=== PATIENT | male | born 1950 | race Caucasian/White ===

== ENCOUNTER 2023-10-09 10:00 | Outpatient (RCR) | payer MEDICARE, SELFPAY | END 2023-10-28 09:04 | disposition home or self-care (01) | LOC: HO.PTCHIC 10:00 | PROVIDERS: PCP Nurse Practitioner Family; Visit Provider Nurse Practitioner Family | DX: M25.552 Pain in left hip (principal) | CPT/HCPCS: 97110; 97161 ==

== ENCOUNTER 2023-12-25 08:41 | Outpatient (AMB) | payer MEDICARE, SELFPAY ==
--- NOTE | 2023-12-25 08:57 | A.OFFVIS_ITS ---
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 Patient reports his pain has been going on for about 6 months and is a 10 on the 1-10 pain scale. He states he is using aleve and aspirin for pain but doesn't last very long. He denies injury, injections, and surgery. The patient also reports intermittent pain in his low back. The pain does radiate down his left leg. He has done formal physical therapy which gave him no relief. He has tried Tylenol and ibuprofen which gave him mild relief. Allergies benazepril Allergy (Mild, Uncoded 12/25/23 09:03) Unknown Medication List - Last Reconciled 12/25/23 by Vinay Gooden MD fenofibrate 160 mg PO DAILY fexofenadine (Marlene Hives) 180 mg PO DAILY methylprednisolone (Medrol (Nolan)) PO PER PKG DIR pantoprazole (Protonix) 20 mg PO DAILY spironolactone 25 mg PO DAILY PFSH Surgical History (Updated 12/25/23 @ 09:09 by Suzi Vieyra CMA) History of bladder surgery (Unknown) Hx of shoulder surgery (Unknown) Hx of shoulder surgery (Unknown) Social History (Updated 12/25/23 @ 09:06 by Suzi Vieyra CMA) Patient Tobacco Use Status: Never used Tobacco Current occupational status: retired 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 Physical Exam Vital Signs: BMI result Body Mass Index 30.5 Const Other: Well-nourished well-developed very friendly male awake alert and oriented x3 in no acute distress Extrem Other: Bilateral lower extremity examination shows good capillary refill, no skin lesions noted, normal sensation light touch Left hip examination shows slightly decreased range of motion when compared to his right hip, minimal tenderness over his bursa, increased pain with forward flexion and internal rotation Results Reviewed Results Reviewed: X-rays of the patient's left hip show mild diffuse joint space narrowing, no acute bony abnormalities Assessment & Plan Assessment & Plan (1) Left hip pain: Code(s): M25.552 - Pain in left hip Plan Mr. 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 I had a lengthy discussion with the patient regarding the treatment options. I did prescribe a Medrol Dosepak. The patient will continue with his activity modifications. I will see him back in 4-6 weeks' time for repeat clinical examination. He will contact me prior to that time should his symptoms worsen in any way. Feel free to call me at any time should questions regarding his orthopedic management arise. Thank you very much for asking me to see this very friendly gentleman. I spent 22 minutes in reviewing the patient's records and imaging studies, seeing the patient and documenting in the medical record. Orders: Orders XR hip LT min 2V Today M25.552 - Pain in left hip Medications: New methylprednisolone (Medrol (Nolan)) PO PER PKG DIR 21 ea 0RF Coding Level of Care Code New Pt Level 2 (53779) Diagnoses Left hip pain M25.552
[2023-12-25 09:00] VITALS: BMI 30.5
== END 2023-12-25 09:29 | disposition home or self-care (01) ==
PROVIDERS: PCP Nurse Practitioner Family; Visit Provider Orthopaedic Surgery
DX: M25.552 Pain in left hip (principal)
CPT/HCPCS: 99202

== ENCOUNTER 2023-12-25 11:28 | Outpatient (REF) | payer MEDICARE, SELFPAY ==
--- NOTE | ~2023-12-25 | XR_ITS ---
EXAMINATION: XR HIP, LEFT CLINICAL INFORMATION: Pain. COMPARISON: CT abdomen and pelvis dated 07/06/2020; lumbar spine radiographs dated 05/13/2009. TECHNIQUE: AP and frog-leg lateral views of the left hip. FINDINGS: Bony alignment and mineralization are normal. The acetabular joint spaces are symmetric and well-maintained. The femoral heads are smooth. No fracture or dislocation is seen. A cyclic joints are symmetric and well-maintained. The pubic symphysis is intact. There are aortoiliac atherosclerotic calcifications. A rectangular lucency projects over the left ilium, which is new from prior and possibly superficial to the ileum. Please correlate. XR/XR hip LT min 2V IMPRESSION: Unremarkable radiographic appearances of the hips.
== END 2023-12-25 11:29 | disposition home or self-care (01) ==
LOC: HO.HOSX 11:28
PROVIDERS: Visit Provider Orthopaedic Surgery
DX: M25.552 Pain in left hip (principal); Z79.899 Other long term (current) drug therapy
CPT/HCPCS: 73502; 99202

== ENCOUNTER 2024-01-01 08:35 | Outpatient (AMB) | payer MEDICARE, SELFPAY ==
[2024-01-01 08:39] VITALS: BMI 30.5
--- NOTE | 2024-01-01 08:39 | MHC.OFFVIS ---
Intake Vital Signs 01/01/24 08:39 Height 6 ft Weight 225 lb BMI 30.5 Intake Visit Reasons: Low back pain radiating to left leg Intake Note: Nathan is a 73 year old male who presents with complaints of progressively worsening low back pain which radiates into his left leg. The patient states that he has had back pain for several years. Also reports intermittent weakness in his left leg. He has tried Tylenol and anti-inflammatory medicines as well as a Medrol Dosepak which gave him minimal relief. He has also done physical therapy which aggravated his pain. Allergies benazepril Allergy (Mild, Uncoded 12/25/23 09:03) Unknown Medication List - Last Reconciled 01/01/24 by Vinay Gooden MD fenofibrate 160 mg PO DAILY fexofenadine (Marlene Hives) 180 mg PO DAILY methylprednisolone (Medrol (Nolan)) PO PER PKG DIR pantoprazole (Protonix) 20 mg PO DAILY spironolactone 25 mg PO DAILY PFSH Surgical History (Updated 12/25/23 @ 09:09 by Suzi Vieyra CMA) History of bladder surgery (Unknown) Hx of shoulder surgery (Unknown) Hx of shoulder surgery (Unknown) Social History (Updated 12/25/23 @ 09:06 by Suzi Vieyra CMA) Patient Tobacco Use Status: Never used Tobacco Current occupational status: retired 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 Physical Exam Vital Signs: BMI result Body Mass Index 30.5 Const Other: Well-nourished well-developed very friendly male awake alert and oriented x3 in no acute distress Back/Spine/Pelvis Other: Low back examination shows pain with range of motion, left-sided paraspinal muscle tenderness, positive straight leg raise test on the left at 70 degrees, 4/5 strength with testing of his left hip flexors and knee extensors when compared to 5/5 strength on his right side Assessment & Plan Assessment & Plan (1) Low back pain radiating to left lower extremity: Code(s): M54.50 - Low back pain, unspecified; M79.605 - Pain in left leg Plan Mr. Monique presents with progressively worsening low back pain which radiates down his left leg possibly due to lumbar stenosis or a disc herniation. Thus, I will send the patient for an MRI of his lumbar spine for further evaluation. I will see him back once the MRI is completed to discuss the findings and treatment options. He will call me prior to that time should his symptoms worsen in any way. Feel free to call me at any time should questions regarding his orthopedic management arise. I spent 22 minutes in reviewing the patient's records and imaging studies, seeing the patient and documenting in the medical record. Orders: Orders MR lumbar spine wo con Today M54.50 - Low back pain, unspecified, M79.605 - Pain in left leg Coding Level of Care Code Est Pt Level 2 (28961) Diagnoses Low back pain radiating to left lower extremity M54.50; M79.605
== END 2024-01-01 08:59 | disposition home or self-care (01) ==
PROVIDERS: PCP Nurse Practitioner Family; Visit Provider Orthopaedic Surgery
DX: M54.50 Low back pain, unspecified (principal); M79.605 Pain in left leg
CPT/HCPCS: 99213

== ENCOUNTER → 2024-01-01 08:35 | Outpatient (BNVA) | payer MEDICARE, SELFPAY | PROVIDERS: PCP Nurse Practitioner Family; Visit Provider Orthopaedic Surgery | DX: M54.50 Low back pain, unspecified (principal); M79.605 Pain in left leg | CPT/HCPCS: 99212 ==

== ENCOUNTER 2024-01-14 07:36 | Outpatient (AMB) | payer MEDICARE, SELFPAY ==
--- NOTE | 2024-01-14 07:40 | A.OFFVIS_ITS ---
Intake Vital Signs 01/14/24 07:43 Height 6 ft Weight 225 lb BMI 30.5 Intake Visit Reasons: OV-Lumbar spine MRI Review Intake Note: Nathan is a 73 year old male who presents for a MRI review of his lumbar spine. The patient describes his back pain as achy in nature. At times his pain does radiate into his left leg. Denies any weakness. He has taken Tylenol, anti- inflammatory medicines and a Medrol Dosepak which gave him fairly good relief. The patient states that this time his symptoms are tolerable to him. Allergies benazepril Allergy (Mild, Uncoded 12/25/23 09:03) Unknown Medication List - Last Reconciled 01/14/24 by Vinay Gooden MD fenofibrate 160 mg PO DAILY fexofenadine (Marlene Hives) 180 mg PO DAILY methylprednisolone (Medrol (Nolan)) PO PER PKG DIR pantoprazole (Protonix) 20 mg PO DAILY spironolactone 25 mg PO DAILY PFSH Surgical History (Updated 12/25/23 @ 09:09 by Suzi Vieyra CMA) History of bladder surgery (Unknown) Hx of shoulder surgery (Unknown) Hx of shoulder surgery (Unknown) Social History Patient Tobacco Use Status: Never used Tobacco Current occupational status: retired 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 Physical Exam Vital Signs: BMI result Body Mass Index 30.5 Const Other: Well-nourished well-developed very friendly male awake alert and oriented x3 in no acute distress Back/Spine/Pelvis Other: Low back examination shows left-sided paraspinal muscle tenderness, mild pain with range of motion, positive straight leg raise test on the left at 70 degrees Results Reviewed Results Reviewed: MRI of the patient's lumbar spine shows mild diffuse degenerative disc disease as well as mild neural foraminal stenosis, no acute bony abnormalities Assessment & Plan Assessment & Plan (1) Low back pain: Code(s): M54.50 - Low back pain, unspecified Plan Mr. Monique presents with intermittent low back pain due to diffuse degenerative disc disease and mild stenosis. I had a lengthy discussion with the patient regarding the treatment options. At this point the patient's symptoms are tolerable to him. He does not wish to be seen by a back specialist at this time. Will continue with his home exercise program. He will follow up with me on an as-needed basis should his symptoms in any way. Feel free to call me at any time should questions regarding his orthopedic arise. I spent 19 minutes in reviewing the patient's records and imaging studies, seeing the patient and documenting in the medical record. Coding Level of Care Code Est Pt Level 2 (47118) Diagnoses Low back pain M54.50
[2024-01-14 07:43] VITALS: BMI 30.5
== END 2024-01-14 07:57 | disposition home or self-care (01) ==
PROVIDERS: PCP Nurse Practitioner Family; Visit Provider Orthopaedic Surgery
DX: M54.50 Low back pain, unspecified (principal)
CPT/HCPCS: 99212

== ENCOUNTER → 2024-01-14 07:36 | Outpatient (BNVA) | payer MEDICARE, SELFPAY | PROVIDERS: PCP Nurse Practitioner Family; Visit Provider Orthopaedic Surgery | DX: M54.50 Low back pain, unspecified (principal) | CPT/HCPCS: 99212 ==

== ENCOUNTER 2025-01-10 07:01 | Inpatient (IN) | payer MEDICARE, SELFPAY ==
[2025-01-10] VITALS (10 sets, daily range): BP systolic 111–167; BP diastolic 51–78; PULSE 82–146; RESP 16–24; TEMP 36.3–38.2; O2SAT 87–99; BMI 30.8
--- NOTE | ~2025-01-10 | XR_ITS ---
CLINICAL HISTORY: cough, fever 2 view chest x-ray Comparison: None Findings: No consolidation or effusion. Heart size is normal. No acute fracture. IMPRESSION: 1. No acute findings. This document has been electronically signed by: Moises Trivedi MD on 01/10/2025 07:33:26
--- NOTE | ~2025-01-10 | CT_ITS ---
CLINICAL HISTORY: cough, SOB Exam: CT chest with intravenous contrast. Comparison: Chest x-ray from earlier today. Findings: Areas of dependent interstitial prominence and developing consolidation are seen within the lower lobes bilaterally, [id number]. Perihilar bronchial wall thickening with minor areas of interstitial prominence within the right perihilar region. No pleural effusion or pneumothorax. Vascular calcification of the thoracic aorta without dissection or aneurysmal dilatation. This extends to the abdominal aorta. Moderate coronary artery calcification. Overall heart size is within normal limits. No pathologically enlarged mediastinal, hilar, or axillary lymph nodes. Moderate bilateral gynecomastia. Low-attenuation throughout the liver is indicative of fatty infiltration. Multilevel degenerative change throughout the thoracic spine. Impression: Findings most characteristic of mild bronchitis/bronchiolitis. No consolidative pneumonia. This document has been electronically signed by: Leander Rosado MD on 01/10/2025 10:30:04
--- NOTE | 2025-01-10 07:17 | ED_ITS ---
HPI - General Adult General Chief complaint: Fever Stated complaint: 103.5 fever, cough Time Seen by Provider: 01/10/25 07:17 Source: patient and family (patient's ) Mode of arrival: ambulatory Limitations: no limitations History of Present Illness ED Provider: Fanta Gonzalez PA-C HPI narrative: Patient is a 74 year old assigned male at with a history of previous bladder cancer, current tongue and skin cancer, and daily alcohol use presenting to the emergency department today with fever and a cough. Patient states that starting yesterday he began having a significant cough and this morning he was found to have a fever. Patient denies any dizziness, lightheadedness, abdominal pain, nausea, vomiting, chills, blurry vision, double vision, loss of vision, chest pain, difficulty breathing, shortness of breath, back pain, night sweats, pain with urination, increased urinary frequency, increased urinary urgency, blood in his urine or stool, syncope or a near syncopal episode, recent trauma or falls, bowel incontinence, bladder incontinence, or any other complaints at this time. Relieving factors: none Exacerbating factors: none Associated symptoms: cough and fever/chills Treatments prior to arrival: none Related Data Home Medications ?Medication ?Instructions ?Recorded ?Confirmed fenofibrate 160 mg tablet 160 mg PO DAILY 12/25/23 01/14/24 fexofenadine 180 mg tablet 180 mg PO DAILY 12/25/23 01/14/24 (Marlene Hives) ketorolac 0.5 % eye drops 1 drp ophthalmic (eye) DAILY PRN 01/10/25 Pain prednisolone acetate 1 % eye 1 drp ophthalmic (eye) TID 01/10/25 drops,suspension spironolactone 25 1 tab PO DAILY 01/10/25 mg-hydrochlorothiazide 25 mg tablet Allergies Allergy/AdvReac Type Severity Reaction Status Date / Time benazepril Allergy Mild Unknown Uncoded 01/10/25 07:15 Review of Systems 2 Constitutional: Constitutional: Reports no additional constitutional complaints, Denies chills, Reports fever(s) and Denies night sweats Eyes: Eyes: Reports no additional eye complaints, Denies blurry vision, Denies change in vision, Denies diplopia, Denies eye discharge, Denies loss of vision and Denies eye pain ENT: Denies dizziness Cardiovascular: Cardiovascular: Reports no additional cardiovascular complaints, Denies chest pain, Denies lightheadedness, Denies Loss of Consciousness and Denies dyspnea Respiratory: Respiratory: Reports no additional respiratory complaints, Reports cough and Denies dyspnea Gastrointestinal: Gastrointestinal: Reports no additional gastrointestinal complaints, Denies abdominal pain, Denies melena, Denies hematochezia, Denies change in bowel habits and Denies change in stool character Genitourinary: Genitourinary: Reports no additional male genitourinary complaints, Denies hematuria, Denies oliguria, Denies difficulty urinating, Denies dysuria, Denies urinary frequency, Denies urinary hesitancy, Denies urinary incontinence and Denies urinary urgency Musculoskeletal: Musculoskeletal: Reports no additional musculoskeletal complaints, Denies numbness and Denies tingling Neurologic: Denies dizziness, Denies loss of vision, Denies numbness and Denies tingling Psychiatric: Psychiatric: Reports no additional psychiatric complaints Endocrine: Endocrine: Reports no additional endocrine complaints Hematologic/Lymphatic: Hematologic/Lymphatic: Reports no additional hematologic/lymphatic complaints Allergic/Immunologic: Allergic/Immunologic: Reports no additional allergic/immunologic complaints PMFSH Past Medical History Attestation statement: The following information was validated with the patient. (all information validated with the patient's ) Source: old records reviewed, obtained from family (patient's provided additional history and confirmed the history provided by the patient.) and nursing notes reviewed Surgical History History of bladder surgery (Unknown) Hx of shoulder surgery (Unknown) Hx of shoulder surgery (Unknown) Social History Social History Patient Tobacco Use Status: Never used Tobacco Use of substances other than those prescribed or required for medical reasons: No Advance Directives: No Advance Directives Information Provided: Yes Current occupational status: retired 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 Physical Exam ED Vital Signs: Vital Signs - 24 hr 01/10/25 07:11 01/10/25 08:20 01/10/25 08:20 Temperature 100.7 F H Pulse Rate 130 H Respiratory Rate 20 Blood Pressure 167/67 H 167/67 H Pulse Oximetry 90 L Oxygen Delivery Method Room Air Oxygen Flow Rate 01/10/25 08:23 01/10/25 09:00 03/23/25 09:06 Temperature 100.1 F Pulse Rate 146 H 114 H Respiratory Rate 24 H 22 H 24 H Blood Pressure 145/70 H 133/65 Pulse Oximetry 92 87 L 92 Oxygen Delivery Method Room Air Nasal Cannula Oxygen Flow Rate 1 01/10/25 09:40 01/10/25 10:05 Temperature Pulse Rate 115 H 88 Respiratory Rate 23 H 24 H Blood Pressure 131/78 131/78 Pulse Oximetry 92 93 Oxygen Delivery Method Nasal Cannula Nasal Cannula Oxygen Flow Rate 1 1 BMI result Body Mass Index 30.8 Const General: cooperative, no acute distress, alert and awake Nutritional Appearance: well nourished Orientation/consciousness: patient oriented x3 Limitations: no limitations HENMT Head: Yes normal to inspection and Yes atraumatic Ears: hearing grossly normal bilaterally and external ears normal General nose exam: Normal external nose present, no nasal discharge noted and no epistaxis Face and sinus: Yes normal facial exam, No abrasion and No laceration Mouth: Normal oral and palatal mucosa present, no drooling and no muffled voice Eyes General: appearance normal, both eyes and all related structures Periorbital: periorbital findings normal Eyelids: Yes eyelids normal Conjunctivae: conjunctivae normal Pupils: Equal, round and reactive pupils present EOM: EOMs intact bilaterally Neck Neck: Yes normal visual inspection, Yes full ROM and Yes no lymphadenopathy Chest Chest palpation & inspection: normal inspection of the chest Resp Effort & Inspection: normal respiratory effort and able to speak in complete sentences Cardio Rate: tachycardic Rhythm: abnormal rhythm irregularly irregular GI Inspection: Yes normal to inspection Neuro General: patient oriented x3, moves all extremities and CN's II-XI intact bilaterally Cranial nerves: Yes Equal, round and reactive pupils present Cognition (Neuro): normal cognition Extrem General: Yes normal to inspection, Yes full ROM and Yes capillary refill normal Psych Appearance: grossly normal Mental Status: mental status grossly normal Affect: normal affect Attitude: cooperative Thought process: Normal thought process present Thought content: Normal thought content present Insight: Good insight present (Psych) Medications Administered Discontinued Medications Generic Name Dose Route Start Last Admin Trade Name Freq PRN Reason Stop Dose Admin Acetaminophen 975 mg 01/10/25 07:18 01/10/25 07:44 Acetaminophen 325 Mg Tablet PO 01/10/25 07:19 975 mg ONCE ONE Administration Ceftriaxone Sodium 1 gm 01/10/25 09:33 01/10/25 10:09 Ceftriaxone Sodium 1 Gm Vial IVPUSH 01/10/25 09:34 1 gm ONCE ONE Administration Hydrochlorothiazide 25 mg 01/10/25 08:11 01/10/25 08:20 Hydrochlorothiazide 25 Mg Tablet PO 01/10/25 08:12 25 mg ONCE ONE Administration Protocol Sodium Chloride 1,000 mls @ 999 mls/hr 01/10/25 08:00 01/10/25 10:05 Ns IV 01/10/25 09:00 Infused .Q1H1M JODIE Infusion Thiamine HCl 100 mg/ Sodium 101 mls @ 202 mls/hr 01/10/25 08:29 01/10/25 10:06 Chloride IV 01/10/25 08:58 Infused ONCE ONE Infusion Magnesium Sulfate 2 gm in 50 mls @ 25 mls/hr 01/10/25 09:06 01/10/25 09:38 Magnesium Sulfate/H2o IV 01/10/25 11:05 25 mls/hr ONCE ONE Administration Azithromycin 500 mg/ Sodium 250 mls @ 125 mls/hr 01/10/25 09:33 01/10/25 10:13 Chloride IV 01/10/25 11:32 125 mls/hr ONCE ONE Administration Iohexol 100 ml 01/10/25 09:21 01/10/25 09:24 Iohexol 350 Mg/Ml 100 Ml Infus..Btl IV 01/10/25 09:22 65 ml ONCE ONE Administration Lorazepam 2 mg 01/10/25 07:51 01/10/25 08:08 Lorazepam 2 Mg/Ml Vial IVPUSH 01/10/25 07:52 2 mg ONCE ONE Administration Metoprolol Tartrate 5 mg 01/10/25 08:49 01/10/25 08:58 Metoprolol Tartrate 5 Mg/5 Ml Vial IVPUSH 01/10/25 08:50 5 mg ONCE ONE Administration Protocol Phenobarbital Sodium 301 mg 01/10/25 10:00 01/10/25 10:07 Phenobarbital Sodium 130 Mg/Ml Im Once IM 01/10/25 10:01 301 mg ONCE ONE Administration Protocol Spironolactone 25 mg 01/10/25 08:04 01/10/25 08:20 Spironolactone 25 Mg Tablet PO 01/10/25 08:05 25 mg ONCE ONE Administration Protocol Medical Decision Making Medical Decision Making MDM Narrative: Patient is a 74 year old assigned male at with a history of previous bladder cancer, current tongue and skin cancer, and daily alcohol use presenting to the emergency department today with fever and a cough. Patient's physical exam was as noted in the physical exam portion of this note. Patient was found to be fever, in new atrial flutter with RVR, and had a CIWA of 18. Patient's blood work showed an elevated WBC count of 17.4, magnesium of 1.5, initial lactic of 2.3 with a repeat of 1.6. Patient's EKG showed atrial flutter with RVR. Patient's chest x-ray showed no acute process. Given patient's presentation and history - I obtained a CT chest which showed evidence of brohncitis / bronchiolitis. Patient was given PO Tylenol, IV fluids, ceftriaxone, ativan, magnesium, thiamine, lopressor, and phenobarb protocol was initiated. Patient converted to NSR. Patient's clinical presentation is most consistent with alcohol withdrawal, new atrial flutter, and brohncitis vs. PNA. I suspected sepsis in this patient at 0933. I spoke with the hosptialist team who agreed to admission. I explained my physical exam findings as well as all test results to the patient and the patient's . I answered all questions asked by the patient and the patient's . Patient and the patient's verbalized agreement and understanding with this treatment plan and admission. Differential Diagnosis Differential Diagnoses: The differential diagnosis associated with the presentation includes Alcohol withdrawal New onset atrial flutter with rapid ventricular response Hypomagnesemia Bronchitis Pneumonia Febrile Admission/Observation Consideration of admission/observation: Escalation of care including admission/observation considered Patient admitted as noted in the MDM Rationale portion of this note. Consult Healthcare Provider Management of the patient was discussed with: Hospitalist (agreed to admission as noted in the MDM Rationale portion of this note.) Lab Data [facility] Lab Attestation statement: I reviewed the patient's lab results. My interpretation of these results are in the MDM Rationale portion of this note. 01/10/25 07:59 01/10/25 07:59 Labs: Lab Results 01/10/25 01/10/25 01/10/25 Range/Units 07:59 08:08 10:01 WBC 17.4 H (4.8-10.8) X10*3/uL RBC 5.05 (4.60-5.80) X10*6/uL Hgb 15.0 (14.0-18.0) g/dl Hct 43.4 (42.0-52.0) % MCV 85.9 (80.0-98.0) fL MCH 29.7 (27.0-33.0) pg MCHC 34.6 (31.0-36.0) g/dl RDW 15.0 (11.0-16.0) % Plt Count 326 (160-400) X10*3/uL MPV 9.0 L (9.4-12.4) fL Immature Gran % (Auto) 0.5 H (0.0-0.4) % Neut % (Auto) 87.4 H (45-73) % Lymph % (Auto) 3.2 L (20-40) % [place] % (Auto) 8.4 (2-11) % Eos % (Auto) 0.2 (0-4) % Baso % (Auto) 0.3 (0-2) % Lymph # (Auto) 0.6 L (1.2-4.9) X10*3/uL [place] # (Auto) 1.5 H (0.1-1.2) X10*3/uL Eos # (Auto) 0.0 (0.0-0.4) X10*3/uL Baso # (Auto) 0.1 (0.0-0.2) X10*3/uL Abs Immat Gran (auto) 0.08 H (0.00-0.03) X10*3/uL Absolute Neuts (auto) 15.2 H (2.0-8.3) x10*3/uL Absolute Nucleated RBC 0.000 (0.0-0.012) X10*3/uL Nucleated RBC % (auto) 0.0 (0.0-0.2) /100WBC VBG pH 7.48 H (7.32-7.43) VBG pCO2 31 mmHg VBG pO2 59 mmHg VBG HCO3 23 (22-26) mmol/L VBG O2 Saturation 88.0 % VBG Base Excess 1.1 mmol/L Sodium 135 (135-145) mmol/L Potassium 3.3 (3.3-5.1) mmol/L Chloride 101 (96-108) mmol/L Carbon Dioxide 21 L (22-29) mmol/L Anion Gap 16 (12-20) BUN 4 L (9-16) mg/dL Creatinine 0.71 (0.5-1.4) mg/dL Estim Creat Clear Calc 110.0 Estimated GFR > 60 Random Glucose 123 H (60-115) mg/dL Lactic Acid 2.3 H* 1.6 (0.5-2.0) mmol/L Calcium 8.6 (8.4-10.2) mg/dL Magnesium 1.5 L (1.6-2.6) mg/dL Total Bilirubin 1.0 (0.0-1.0) mg/dL AST 21 (5-37) U/L ALT 11 (0-40) U/L Alkaline Phosphatase 50 (39-117) U/L Troponin I High Sens 10.3 14.2 (<3.5-35.0) ng/L Total Protein 7.7 (6.5-8.0) g/dL Albumin 3.7 (3.5-5.0) g/dL Vitamin B12 474 (200-900) pg/mL Folate 15.8 (> or = 4.0) ng/mL Procalcitonin 0.03 ng/mL Influenza Type A (PCR) NEGATIVE (Negative) Influenza Type B (PCR) NEGATIVE (Negative) RSV RNA Qual (PCR) NEGATIVE (Negative) SARS-CoV-2 RNA (RT-PCR) NEGATIVE (Negative) Independent Interpretation I performed an independent interpretation of an: EKG, Plain X-Ray and CT Scan Interpretation: My interpretation is in agreement with the radiologist's impression of these imaging studies. L CLINICAL HISTORY: cough, fever 2 view chest x-ray Comparison: None Findings: No consolidation or effusion. Heart size is normal. No acute fracture. IMPRESSION: 1. No acute findings. This document has been electronically signed by: Moises Trivedi MD on 01/10/2025 07:33:26 Dictated By: Moises Trivedi MD Signed By: Electronically signed by Moises Trivedi MD 01/10/25 0734 Report Number: [id number]: Total DLP = 324.00 mGy-cm CLINICAL HISTORY: cough, SOB Exam: CT chest with intravenous contrast. Comparison: Chest x-ray from earlier today. Findings: Areas of dependent interstitial prominence and developing consolidation are seen within the lower lobes bilaterally, [id number]. Perihilar bronchial wall thickening with minor areas of interstitial prominence within the right perihilar region. No pleural effusion or pneumothorax. Vascular calcification of the thoracic aorta without dissection or aneurysmal dilatation. This extends to the abdominal aorta. Moderate coronary artery calcification. Overall heart size is within normal limits. No pathologically enlarged mediastinal, hilar, or axillary lymph nodes. Moderate bilateral gynecomastia. Low-attenuation throughout the liver is indicative of fatty infiltration. Multilevel degenerative change throughout the thoracic spine. Impression: Findings most characteristic of mild bronchitis/bronchiolitis. No consolidative pneumonia. This document has been electronically signed by: Leander Rosado MD on 01/10/2025 10:30:04 Dictated By: Leander Rosado MD Signed By: Electronically signed by Leander Rosado MD 01/10/25 1030 I independently interpreted this EKG and am in agreement with the below findings: Vent. Rate: 132 BPM Atrial Rat: 322 BPM P-R Int: * ms QRS Dur: 86 ms QT Int: 382 ms P-R-T Axes: * 55 55 degrees QTcB Int: 565 ms Atrial flutter with variable A-V block Nonspecific ST and T wave abnormality No previous ECGs available DD/ [id number] I independently interpreted this EKG and am in agreement with the below findings: Vent. Rate: 92 BPM Atrial Rate: 92 BPM P-R Int: 194 ms QRS Dur: 102 ms QT Int: 386 ms P-R-T Axes: 97 51 48 degrees QTcB Int: 477 ms Sinus rhythm with occasional Premature ventricular complexes and Prematureatrial complexes Otherwise normal ECG When compared with ECG of 10-Jan-2025 07:46, Sinus rhythm has replaced Atrial flutter ST no longer elevated in Inferior leads DD/ 1017 Radiology Impression Discussion of test interpretation with radiology: I have reviewed the radiologist's reading. Independent Historian Clinical information obtained from an independent historian. History obtained from or confirmed by: Spouse (patient's provided additional history and confirmed the history provided by the patient.) Critical Care Time Critical Care Time Critical Care Time: Yes Total Critical Care Time: 58 Attestation: I spent 58 minutes of Critical Care Time with this patient. This does not include time spent on separately reported billable procedures. Discharge Plan Discharge Clinical Impression: Atrial flutter, Hypomagnesemia, Alcohol withdrawal, Bronchitis Patient Disposition: Admitted As Inpatient Prescriptions: No Action spironolacton-hydrochlorothiaz 25-25 mg tablet 1 tab PO DAILY ketorolac 0.5 % drops 1 drp ophthalmic (eye) DAILY PRN (Reason: Pain) prednisolone acetate 1 % drops,suspension 1 drp ophthalmic (eye) TID fexofenadine [Marlene Nydia] 180 mg tablet 180 mg PO DAILY fenofibrate 160 mg tablet 160 mg PO DAILY Print Language: Malian
--- NOTE | 2025-01-10 07:20 | ECG_ITS ---
Test Reason : TACHY Blood Pressure : */* mmHG Vent. Rate : 132 BPM Atrial Rate : 322 BPM P-R Int : * ms QRS Dur : 86 ms QT Int : 382 ms P-R-T Axes : * 55 55 degrees QTcB Int : 565 ms Atrial flutter with variable A-V block Nonspecific ST and T wave abnormality Abnormal ECG No previous ECGs available Referred By: Fanta Gonzalez Electronically Signed By: CHARLOTTE GOODWIN MD
--- OUTSIDE RECORDS SUMMARY | 2025-01-10 07:32 | XMS_ITS | Encounter Summary ---
Author Organization [facility] Address [address] [place] [address] Care Team Providers Care Stone [employer] Operator Name Role Phone Jeanette Charlotte CALHOUN Primary Care Provider [phone] Encounter Details Date Type Department Care Team (Late st Contact Info) Description 11/23/2024 Lab Requisition [facility] - Main Lab [address] [facility] [place] [address] Ernst Mayers MD [address] [place] [address] Personal history of malignant neoplasm of bladder; Personal history of malignant neoplasm of prostate Social History Tobacco Use Types Packs/Day Years Used Date Smoking Tobacco: Never Assessed Sex and Gender Information Value Date Recorded Sex Assigned at Not on file Legal Sex Male 8:08 PM EST Gender Identity Not on file Sexual Orientation Not on file documented as of this encounter Plan of Treatment Not on file documented as of this encounter Procedures Procedure Name Priority Date/Time Associated Diagnosis Comments PROSTATE SPECIFIC ANTIGEN DIAGNOSTIC Routine 11/23/2024 8:18 AM EST Personal history of malignant neoplasm of bladder Personal history of malignant neoplasm of prostate COMPLETE BLOOD COUNT Routine 11/23/2024 8:18 AM EST Personal history of malignant neoplasm of bladder Personal history of malignant neoplasm of prostate COMPREHENSIVE METABOLIC PANEL Routine 11/23/2024 8:18 AM EST Personal history of malignant neoplasm of bladder Personal history of malignant neoplasm of prostate documented in this encounter Results * (ABNORMAL) Comprehensive metabolic panel (11/23/2024 8:18 AM EST) Sodium 134 133 - 145 mmol/L LAB CHEMISTRY METHOD 11/23/2024 5:37 PM [facility] Potassium 3.7 3.5 - 5.5 mmol/L LAB CHEMISTRY METHOD 11/23/2024 5:37 PM [facility] Chloride 99 96 - 110 mmol/L LAB CHEMISTRY METHOD 11/23/2024 5:37 PM [facility] CO2 27 21 - 32 mmol/L LAB CHEMISTRY METHOD 11/23/2024 5:37 PM [facility] Anion Gap 8 3 - 11 LAB CHEMISTRY METHOD 11/23/2024 5:37 PM [facility] Glucose 101(H) 70 - 100 mg/dL LAB CHEMISTRY METHOD 11/23/2024 5:37 PM [facility] BUN 6 5 - 25 mg/dL LAB CHEMISTRY METHOD 11/23/2024 5:37 PM [facility] Creatinine 0.79 0.70 - 1.30 mg/dL LAB CHEMISTRY METHOD 11/23/2024 5:37 PM [facility] eGFR 93 >=60 mL/min/1. 73m2 LAB CHEMISTRY METHOD 11/23/2024 5:37 PM [facility] Comment:Calculation based on the??Chronic Kidney Disease Epidemiology Collaboration (CKD-EPI) equation refit??without adjustment for race. BUN/Creatinine Ratio 7.6 LAB CHEMISTRY METHOD 11/23/2024 5:37 PM [facility] Calcium 9.0 8.5 - 10.5 mg/dL LAB CHEMISTRY METHOD 11/23/2024 5:37 PM [facility] AST (SGOT) 23 10 - 42 unit/L LAB CHEMISTRY METHOD 11/23/2024 5:37 PM [facility] ALT (SGPT) 23 10 - 60 unit/L LAB CHEMISTRY METHOD 11/23/2024 5:37 PM [facility] Alkaline Phosphatase 52 42 - 121 unit/L LAB CHEMISTRY METHOD 11/23/2024 5:[address] [facility] Total Protein 7.3 6.0 - 8.0 g/dL LAB CHEMISTRY METHOD 11/23/2024 5:37 PM [facility] Albumin 3.4 3.2 - 5.0 g/dL LAB CHEMISTRY METHOD 11/23/2024 5:37 PM [facility] Total Bilirubin 0.5 0.0 - 1.4 mg/dL LAB CHEMISTRY METHOD 11/23/2024 5:37 PM [facility] Blood Venous blood specimen / Unknown 11/23/2024 8:18 AM EST 11/23/2024 1:35 PM EST us Ernst Mayers MD LAB BLOOD ORDERABLES Final Resul t [facility] [address] [place] [address], * Complete blood count (11/23/2024 8:18 AM EST) WBC 7.6 4.8 - 10.8 K/mcL LAB HEMETOLOGY METHOD 11/23/2024 1:58 PM [facility] RBC 5.10 4.50 - 5.50 M/mcL LAB HEMETOLOGY METHOD 11/23/2024 1:58 PM [facility] Hemoglobin 14.7 13.5 - 17.5 g/dL LAB HEMETOLOGY METHOD 11/23/2024 1:58 PM [facility] Hematocrit 44.7 42.0 - 54.0 % LAB HEMETOLOGY METHOD 11/23/2024 1:58 PM [facility] MCV 88.3 79.0 - 98.0 FL LAB HEMETOLOGY METHOD 11/23/2024 1:58 PM [facility] MCH 29.1 27.0 - 32.0 pcg LAB HEMETOLOGY METHOD 11/23/2024 1:[address] [facility] MCHC 32.9 32.0 - 37.0 g/dL LAB HEMETOLOGY METHOD 11/23/2024 1:[address] [facility] RDW 14.5 11.0 - 15.0 % LAB HEMETOLOGY METHOD 11/23/2024 1:[address] [facility] Platelets 349 130 - 400 K/mcL LAB HEMETOLOGY METHOD 11/23/2024 1:[address] [facility] MPV 9.5 7.0 - 11.0 FL LAB HEMETOLOGY METHOD 11/23/2024 1:[address] [facility] NRBC 0.0 <1.0 % LAB HEMETOLOGY METHOD 11/23/2024 1:[address] [facility] NRBC Absolute 0.00 <0.10 K/mcL LAB HEMETOLOGY METHOD 11/23/2024 1:[address] [facility] Blood Venous blood specimen / Unknown 11/23/2024 8:18 AM EST 11/23/2024 1:35 PM EST Ernst Mayers MD LAB BLOOD ORDERABLES Final Resul t [facility] [address] [place] [address], * Prostate specific antigen diagnostic (11/23/2024 8:18 AM EST) PSA <0.06 0.00 - 4.00 ng/mL LAB CHEMISTRY METHOD 11/23/2024 5:[address] [facility] Blood Venous blood specimen / Unknown 11/23/2024 8:18 AM EST 11/23/2024 1:35 PM EST [facility] - 11/23/2024 5:46 PM EST The Siemens Advia Centaur Chemiluminescent Immunoassay is used. Results obtained with different assay methods or kits cannot be used interchangeably. Results cannot be interpreted as absolute evidence of the presence or absence of malignant disease. us Ernst Mayers MD LAB BLOOD ORDERABLES Final Resul t [facility] [address] [place] [address], documented in this encounter Visit Diagnoses Diagnosis Personal history of malignant neoplasm of bladder Personal history of malignant neoplasm of prostate documented in this encounter Care Teams Stone [employer] Operator Relationship Specialty Start Date End Date Charlotte Reid NP [address] [facility] [place] [id number] PCP - General Nurse Practitioner 11/23/24 documented as of this encounter
--- OUTSIDE RECORDS SUMMARY | 2025-01-10 07:32 | XMS_ITS | Clinical Summary ---
Author Organization [address] Address [address] [place] [address] Phone Care Team Providers Care Auto Service Representative Name Role Phone Jeanette, Charlotte CALHOUN Primary Care Provider [phone] Encounters Date Type Department Care Team Description 11/23/2024 Lab Requisition [facility] - Main Lab [address] [facility] [place] [address] Ernst Mayers MD Personal history of malignant neoplasm of bladder; Personal history of malignant neoplasm of prostate from Last 3 Months Social History Tobacco Use Types Packs/Day Years Used Date Smoking Tobacco: Never Assessed Sex and Gender Information Value Date Recorded Sex Assigned at Not on file Legal Sex Male 8:08 PM EST Gender Identity Not on file Sexual Orientation Not on file Plan of Treatment Health Maintenance Due Date Last Done Comments DTaP,Tdap,and Td Vaccines (1 - Tdap) 1969 Pneumococcal Vaccine: 50+ Ye ars (1 of 1 - PCV) 2000 Zoster Vaccines (1 of 2) 2000 Abdominal Aortic Aneurysm (A AA) Screen 11/14/2023 Cholesterol Screening (Lipid Panel) 11/14/2023 Colorectal Cancer Screening: Colonoscopy 11/14/2023 Depression Screening 11/14/2023 Falls Risk Assessment 11/14/2023 Hepatitis C Screening 11/14/2023 Medicare Annual Wellness Visit 11/14/2023 Social Influencers of Health Screening 11/14/2023 COVID-19 Vaccine (1 - 2023-2 5 season) 2024 Influenza Vaccine (#1) 2024 RSV Immunization Patients 60 + Years Old (1 - 1-dose 75+ series) 2025 HIB Vaccines Aged Out No longer eligi ble based on patient's age to complete this topic HPV Vaccines Aged Out No longer eligi ble based on patient's age to complete this topic Hepatitis A Vaccines Aged Out No long er eligible based on patient's age to complete this topic Hepatitis B Vaccines Aged Out No long er eligible based on patient's age to complete this topic IPV Vaccines Aged Out No longer eligi ble based on patient's age to complete this topic MMR Vaccines Aged Out No longer eligi ble based on patient's age to complete this topic Meningococcal ACWY Vaccine Aged Out N o longer eligible based on patient's age to complete this topic Meningococcal B Vacine Aged Out No lo nger eligible based on patient's age to complete this topic RSV Immunization Patients Un yaya 20 months Aged Out No longer eligible b ased on patient's age to complete this topic Varicella Vaccines Aged Out No longer eligible based on patient's age to complete this topic Procedures Procedure Name Priority Date/Time Associated Diagnosis Comments COMPREHENSIVE METABOLIC PANEL Routine 11/23/2024 8:18 AM EST Personal history of malignant neoplasm of bladder Personal history of malignant neoplasm of prostate COMPLETE BLOOD COUNT Routine 11/23/2024 8:18 AM EST Personal history of malignant neoplasm of bladder Personal history of malignant neoplasm of prostate PROSTATE SPECIFIC ANTIGEN DIAGNOSTIC Routine 11/23/2024 8:18 AM EST Personal history of malignant neoplasm of bladder Personal history of malignant neoplasm of prostate from Last 3 Months Results * Prostate specific antigen diagnostic (11/23/2024 8:18 AM EST) PSA <0.06 0.00 - 4.00 ng/mL LAB CHEMISTRY METHOD 11/23/2024 5:46 PM EST [facility] Blood Venous blood specimen / Unknown 11/23/2024 8:18 AM EST 11/23/2024 1:35 PM EST [facility] - 11/23/2024 5:46 PM EST The Siemens Advia Glycobiaaur Chemiluminescent Immunoassay is used. Results obtained with different assay methods or kits cannot be used interchangeably. Results cannot be interpreted as absolute evidence of the presence or absence of malignant disease. us Ernst Mayers MD LAB BLOOD ORDERABLES Final Resul t [facility] [address] [place] [address], [place] [phone] * Complete blood count (11/23/2024 8:18 AM EST) WBC 7.6 4.8 - 10.8 K/mcL LAB HEMETOLOGY METHOD 11/23/2024 1:58 PM EST [facility] RBC 5.10 4.50 - 5.50 M/mcL LAB HEMETOLOGY METHOD 11/23/2024 1:58 PM [facility] Hemoglobin 14.7 13.5 - 17.5 g/dL LAB HEMETOLOGY METHOD 11/23/2024 1:58 PM [facility] Hematocrit 44.7 42.0 - 54.0 % LAB HEMETOLOGY METHOD 11/23/2024 1:58 PM EST [facility] MCV 88.3 79.0 - 98.0 FL LAB HEMETOLOGY METHOD 11/23/2024 1:58 PM EST [facility] MCH 29.1 27.0 - 32.0 pcg LAB HEMETOLOGY METHOD 11/23/2024 1:58 PM EST [facility] MCHC 32.9 32.0 - 37.0 g/dL LAB HEMETOLOGY METHOD 11/23/2024 1:58 PM EST [facility] RDW 14.5 11.0 - 15.0 % LAB HEMETOLOGY METHOD 11/23/2024 1:58 PM [facility] Platelets 349 130 - 400 K/mcL LAB HEMETOLOGY METHOD 11/23/2024 1:58 PM [facility] MPV 9.5 7.0 - 11.0 FL LAB HEMETOLOGY METHOD 11/23/2024 1:58 PM [facility] NRBC 0.0 <1.0 % LAB HEMETOLOGY METHOD 11/23/2024 1:58 PM EST [facility] NRBC Absolute 0.00 <0.10 K/mcL LAB HEMETOLOGY METHOD 11/23/2024 1:58 PM [facility] Blood Venous blood specimen / Unknown 11/23/2024 8:18 AM EST 11/23/2024 1:35 PM EST us Ernst Mayers MD LAB BLOOD ORDERABLES Final Resul t [facility] [address] [place] [address], [place] [phone] * (ABNORMAL) Comprehensive metabolic panel (11/23/2024 8:18 AM EST) Sodium 134 133 - 145 mmol/L LAB CHEMISTRY METHOD 11/23/2024 5:37 PM [facility] Potassium 3.7 3.5 - 5.5 mmol/L LAB CHEMISTRY METHOD 11/23/2024 5:37 PM [facility] Chloride 99 96 - 110 mmol/L LAB CHEMISTRY METHOD 11/23/2024 5:37 PM [facility] CO2 27 21 - 32 mmol/L LAB CHEMISTRY METHOD 11/23/2024 5:37 PM [facility] Anion Gap 8 3 - 11 LAB CHEMISTRY METHOD 11/23/2024 5:37 PM [facility] Glucose 101(H) 70 - 100 mg/dL LAB CHEMISTRY METHOD 11/23/2024 5:37 PM [facility] BUN 6 5 - 25 mg/dL LAB CHEMISTRY METHOD 11/23/2024 5:37 PM [facility] Creatinine 0.79 0.70 - 1.30 mg/dL LAB CHEMISTRY METHOD 11/23/2024 5:37 PM [facility] eGFR 93 >=60 mL/min/1. 73m2 LAB CHEMISTRY METHOD 11/23/2024 5:37 PM [facility] Comment:Calculation based on the??Chronic Kidney Disease Epidemiology Collaboration (CKD-EPI) equation refit??without adjustment for race. BUN/Creatinine Ratio 7.6 LAB CHEMISTRY METHOD 11/23/2024 5:37 PM [facility] Calcium 9.0 8.5 - 10.5 mg/dL LAB CHEMISTRY METHOD 11/23/2024 5:37 PM [facility] AST (SGOT) 23 10 - 42 unit/L LAB CHEMISTRY METHOD 11/23/2024 5:37 PM [facility] ALT (SGPT) 23 10 - 60 unit/L LAB CHEMISTRY METHOD 11/23/2024 5:37 PM [facility] Alkaline Phosphatase 52 42 - 121 unit/L LAB CHEMISTRY METHOD 11/23/2024 5:37 PM [facility] Total Protein 7.3 6.0 - 8.0 g/dL LAB CHEMISTRY METHOD 11/23/2024 5:37 PM [facility] Albumin 3.4 3.2 - 5.0 g/dL LAB CHEMISTRY METHOD 11/23/2024 5:37 PM [facility] Total Bilirubin 0.5 0.0 - 1.4 mg/dL LAB CHEMISTRY METHOD 11/23/2024 5:37 PM [facility] Blood Venous blood specimen / Unknown 11/23/2024 8:18 AM EST 11/23/2024 1:35 PM EST us Ernst Mayers MD LAB BLOOD ORDERABLES Final Resul t [facility] [address] [place] [address], [place] [phone] from Last 3 Months Insurance MEDICARE [employer] - [place] MEDICARE [place]ANT[place] Care Teams Auto Service Representative Relationship Specialty Start Date End Date Charlotte Reid NP [address] [place] [facility] [place] [address] PCP - General Nurse Practitioner 11/23/24
--- OUTSIDE RECORDS SUMMARY | 2025-01-10 07:32 | XMS_ITS | Data Portability ---
Author Organization JOHANNA Argeulles s, [address] Address [address] [place] [address] Assessment No assessment recorded. Plan of Treatment Reminders Order Date Submit Date Provider Last Modified By Organization Details Last Modified Time Details Appointments None recorded. Lab rapid SARS CoV 2 Ag, QL IA, respiratory specimen 2021 [email or web address] 1 _marybel zapien, [address] [place] [address], [id number], 09:31:48 rapid flu (A+B) 2021 [email or web address] 1 _marybel [facility], [address] [place] [address], [phone], 09:31:48 Referral None recorded. Procedures None recorded. Surgeries None recorded. Imaging None recorded. Medication Orders Augmentin 875 mg-125 mg tablet 2021 [facility] #[id number], [address] [place], [address], 08:38:14 amoxicillin 875 mg tablet 2021 [facility] #[id number], [address] [place], [address], 09:31:51 fluticasone propionate 50 mcg/actuati on nasal spray,suspe nsion 2021 [facility] #[id number], [address] [place], [address], 09:31:51 Patient TargetsNo targets recorded. Patient Instructions Encounter Date Encounter Id Patient Instructions Last Modified By Organization Details Last Modified Time 10/11/2022 [id number] Acute Sinusitis: Care Instructions [email or web address] Not available 10/11/2022 09:31:48 10/18/2022 [id number] animal bites: care instructions ori lopez Not available 10/18/2022 08:38:12 Discharge Instructions - Wound Care - Wash the wound gently with soap and warm water once daily. Otherwise keep wound clean, dry and covered with a dressing. - Do not immerse in water, and do not use alcohol or peroxide to clean. Do not use iodine or mercurochrome. - Elevate to decrease pain and improve healing. - Minimize use of affected body part. - Return here or see your doctor for any sign of infection, including redness, swelling, pus or increased pain. - If you received a tetanus shot the site may become sore and you may develop a low-grade fever. Take Tylenol if you have fever or pain. Return for a more severe reaction. - See your doctor or return here if not improving in {{1 2 3* 4 5 6 7 8 9 10 11 12 13 1 4}} days. [email or web address] john Not available 10/18/2022 08:27:30 Reason for Referral None Reported. Results Created Date Observation Date Name Description Value Unit Range Abnormal Flag Note LastModifiedBy Organization Detail LastModifiedTime 10/11/20 22 10/11/2022 rapid SARS CoV 2 Ag, QL IA, respi rator y speci men Unknown Analyte Normal =Negat rosy Not Available [facility] [address] [place], [place] [address], [address], 10/11/2022 08:55:37 10/11/20 22 10/11/2022 rapid SARS CoV 2 Ag, QL IA, respi rator y speci men Unknown Analyte negati ve Not Available [facility] [address] [place], [place] [address], [address], 10/11/2022 08:55:37 10/11/2010/11/2022 rapid flu (A+B) Unknown Analyte Normal = Negati ve Not Available [facility] [place][note 2]adelaide chin [address] [place], [address], 10/11/2022 08:55:44 10/11/2010/11/2022 rapid flu (A+B) Unknown Analyte negati ve Not Available [facility] [place][note 2]adelaide chin [address], [address], 10/11/2022 08:55:44 10/11/2010/11/2022 rapid flu (A+B) Unknown Analyte Normal = Negati ve Not Available [facility] [place][note 2]adelaide chin [address], [address], 10/11/2022 08:55:44 10/11/2010/11/2022 rapid flu (A+B) Unknown Analyte negati ve Not Available [facility] [place][note 2]adelaide chin [address], [address], 10/11/2022 08:55:44 Result Notes None recorded. Problems Name Problem SNOMED Code Status Onset Date Resolution Date Notes Provider Name and Address Organization Details Recorded Time Hypertensiv e disorder 48384270 Active 2021 Antonella haywood PA - [facility] 2 08:54:43 Malignant neoplasm of urinary bladder 433287919 Completed 202110/11/2022 Antonella haywood PA - [facility] 08:54:52 Problem Notes None recorded. Procedures Surgical History Date Name Laterality Status Provider Name and Address Organization Details Recorded Time Wound Care UC completed JOHANNA THOMAS JD, [place], [address], [place] - [facility] 10/18/2022 08:28:16 excision of urinary bladder completed Antonella Deanna PA - [facility] 10/11/2022 08:55:30 Imaging Results None recorded. Procedure Notes None recorded. Medical Equipment None Reported. Allergies Allergen ID Allergen Name Allergen Category Reaction Reaction Severity Criticality Documentation Date Start Date Code Code System Note Provider Name and Address Organization Details Recorded Time 85545 benazepri l medicatio n Not available Not available Not available 10/11/2022 20876 RxNorm Antonella haywood PA - [facility] 08:53:45 Medications Name Sig Start Date Stop Date Status Note LastModified by Organization Details LastModified Time amoxicillin 500 mg capsule TAKE ONE CAPSULE BY MOUTH THREE TIMES DAILY UNTIL ALL TAKEN 10/11 completed Not Available Not Available Not Available Augmentin 875 mg-125 mg tablet Take 1 tablet every 12 hours by oral route for 5 days. 2021 active Not Available Not Available Not Avai lable spironolact one 25 mg-hydrochl orothiazide 25 mg tablet TAKE 1 TABLET BY MOUTH DAILY active Not Available Not Available No t Available ofloxacin 0.3 % ear drops 10/11 completed Not Available Not Available Not Available amoxicillin 875 mg tablet Take 1 tablet every 12 hours by oral route with meals for 7 days. 2021 active Not Available Not Available Not Avai lable sulfacetami de sodium 10 % eye drops INSTILL 4 DROPS TO AFFECTED EAR TWICE DAILY FOR 14 DAYS 10/11 completed Not Available Not Available Not Available pantoprazol e 40 mg tablet,emma yed release active Not Available Not Available Not Available fluticasone propionate 50 mcg/actuati on nasal spray,suspe nsion SPRAY 1 SPRAY TWICE A DAY BY INTRANASA L ROUTE DIRECTED. active Not Available Not Available No t Available ciprofloxac in 0.3 %-dexametha sone 0.1 % ear drops,suspe nsion SHAKE LIQUID AND INSTILL 4 DROPS TO LEFT EAR TWICE DAILY FOR 14 DAYS 10/11 completed Not Available Not Available Not Available fenofibrate 160 mg tablet active Not Available Not Available Not Available Vitals Date Recorded Body height Body mass index (BMI) Body weight Oxygen saturation Oxygen saturation in Arterial blood by Pulse oximetry Heart rate Respiratory rate Body temperature Systolic blood pressure Diastolic blood pressure Provider Name and Address Organization Details Last Updated DateTime 12/22/202 2 182.88 cm 31.2 kg/m2 196428. 25 g 95 % 95 % 96 /min 20 /min 98.8 [degF] 167 mm[Hg] 84 mm[Hg] Antonella Huerta PA - [facility] 08:52:07 Date Recorded Body height Body mass index (BMI) Body weight Heart rate Oxygen saturation Oxygen saturation in Arterial blood by Pulse oximetry Respiratory rate Body temperature Systolic blood pressure Diastolic blood pressure Provider Name and Address Organization Details Last Updated DateTime 2 182.88 cm 31.2 kg/m2 178549. 25 g 95 /min 94 % 94 % 18 /min 97.9 [degF] 166 mm[Hg] 78 mm[Hg] VALENTIN MARIE PA [facility] 08:09:32 Social History Question Answer Notes LastModified by [employer] Details LastModified Time Tobacco Smoking Status Never Smoker Antonella haywood PA - [facility] 10/11/2022 08:55:05 What Is Your Level Of Alcohol Consumption? Occasional Information not available 10/11/2022 How Many Times Per Week Do You Consume Alcohol? 1-2 Times Per Week Information not available 10/11/2022 Have You Had Direct Contact, Or Contact During Intimacy, With Monkeypox Rash, Scabs, Or Body Fluids From A Person With Monkeypox? No Information not available 10/11/2022 Do You Use Any Illicit Or Recreational Drugs? No Information not available 10/11/2022 Have You Recently Traveled Abroad? No Information not available 10/11/2022 Do You Or Have You Ever Used Any Other Forms Of Tobacco Or Nicotine? No Information not available 10/11/2022 Sex: Unknown Functional Status None recorded. Mental Status None recorded. Family History Relationship Description Onset Age of this Age Resolved Age Notes LastModified by Organization Details LastModified Time Father No current problems or disability Not available 10/11 08:54:55 Mother No current problems or disability Not available 10/11 08:54:55 Medical History No medical history recorded. Immunizations Vaccine Type Date Status Note Provider Nam e and Address Organization Details Recorded Time COVID-19, mRNA, LNP-S, bivalent, PF, 50 mcg/0.5 mL or 25mcg/0.25 mL dose 07/10/2022 completed Antonella Deanna null, PA - [facility] 10/11/2022 08:52:46 COVID-19, mRNA, LNP-S, PF, 100 mcg/0.5mL dose or 50 mcg/0.25mL dose 01/11/2021 completed Antonella [place] null, PA - [facility] 10/11/2022 08:52:46 COVID-19, mRNA, LNP-S, PF, 100 mcg/0.5mL dose or 50 mcg/0.25mL dose 12/14/2020 completed Antonella [place] null, PA - [facility] 10/11/2022 08:52:46 Influenza, high-dose, quadrivalent, PF 06/22/2022 completed Antonella Deanna null, PA - [facility] 10/11/2022 08:52:46 COVID-19, mRNA, LNP-S, PF, 100 mcg/0.5mL dose or 50 mcg/0.25mL dose 08/17/2021 completed Antonella [place] null, PA - [facility] 10/11/2022 08:52:46 Tdap 05/21/2022 completed VALENTIN MARIE null, PA - [facility] 10/18/2022 08:26:32 Past Encounters Encounter ID Performer Location Encounter Start Date Encounter Closed Date Diagnosis/Indication Diagnosis SNOMED-CT Code Diagnosis ICD10 Code Diagnosis Note [id number] [address] [address] 08/12/2016 10:09:22 08/12/2016 10:48:51 [id number] NYA KAUR MD [address] [address] 10/11/2022 08:17:14 10/11/2022 09:34:16 Cough 27420217 R05.9 Acute sinusitis 69315176 J01.90 If your symptoms worsen or persist you should be re-evaluat ed. If you are having thick mucus, you can useMUCINEX PLAINto help with your symptoms. Mucinex helps to thin mucus and works best when you drink plenty of water/flui ds throughout the whole day. If you are having thick mucus and a cough, you can useMUCINEX -DMto help with your symptoms. Mucinex helps to thin mucus and the DM is the cough suppressan t. This will work best when you drink plenty of water/flui ds throughout the whole day. If you just have coughand not thick mucus, you can useDELSYMt o help with your symptoms. Some people feel DELSYM makes them feel a little tired so you may want to use cough drops during the day and add the DELSYM in at night. Drink plenty of fluids If your symptoms are getting worse, or if you develop new symptoms that concern you, you should call 911 or go to the Emergency Department . Return to [facility] or see your primary care physician if your symptoms fail to improve in 5-7 days. You should follow up sooner if your symptoms worsen significan tly or if you develop new symptoms that concern you. [id number] JOHANNA AUGUST [address] [address] 10/18/2022 08:02:10 10/18/2022 08:39:12 Dog bite of hand 290765151 W54.0XXA Health Concerns Section Related Observation LastModified by Organization Detai ls LastModified Time None Recorded Concern Status LastModified by Organization Details LastModified Time None Recorded Advance Directives Directive None Recorded Payers Encounter Date Sequence Insurance Name Policy Number Policy Platt Covered Member ID Platt Member ID Guarantor Name 08/12/2016 1 [place] [employer] Nathan Monique [id number] Nathan Monique 08/12/2016 2 [place] [id number] Nathan Monique [id number] Nathan Monique 10/11/2022 1 [place] Nathan Monique [id number] Nathan Linosz 10/11/2022 2 [place] [id number] Nathan Cannonz [id number] Nathan Linosz 10/18/2022 1 [place] Nathan Monique [id number] Nathan Linosz 10/18/2022 2 [place] [id number] Nathan Cannonz [id number] Nathan Monique Notes Date Note Type Note Provider Name and Address Organization Details Recorded Time 10/11/2022 text/html CoughReported bypatient.Quality:p roductive cough(but swallows it) Severity:moderate Duration:constant; symptoms lasting over 2 weeks Timing:constant Modifying Factors:Cough Suppressant (helps some) Associated Symptoms:no fever; no chills; no chest pain; no nausea; no vomiting 2 wks of congestion, cough - worse at night and when he lays down. Was getting better at one point and then worse again over the last 3-4d. Taking plain mucinex which does help. NYA KAUR MD [address] [place], [address], [place] - [facility] 10/11/2022 09:33:15 10/18/2022 text/html Animal BiteRepor sweetie bypatient.Onset of exposure:12 hours ago; date: 10/17/2022 Type of Exposure:dog bite Wound Type:Puncture Location:left; hands Context:animal: county - , vaccinated ; agency notified Associated Symptoms:no wound drainage; no redness; no swelling Vaccine Status:Tetanus vaccine within past 5 years JOHANNA AHUMADA [address] [place], [address], [place] - [facility] 10/18/2022 08:39:30
--- OUTSIDE RECORDS SUMMARY | 2025-01-10 07:33 | XMS_ITS | Patient Health Record ---
Author Organization [facility] Address [address] [place] [address] Care Team Providers Care Supervisor Dry Cleaning Name Role Phone Aminata SOSA, Josué Primary Care Provider Ralph Gudino Unavailable [phone] Allergies No Known Allergies Reason For Referral No Information Medications Medication SIG (Take, Route, Fr equency, Duration) Notes Start Date End Date Status Marlene Active Fenofibrate 160 MG 1 tablet Orally Once a day for 30 day(s) Active Keflex 500 500 MG 1 capsule Orally daquan ry 12 hrs for 10 day(s) Active Protonix 40 MG 1 tablet Orally Once a day for 30 day(s) Active Spironolactone 25 MG 1 tablet Orally for 30 day(s) Active Social History Tobacco Use: Social History Observation Description Date Details (start date - stop date) Former Smoker NA - NA Tobacco Use/Smoking Question Answer Notes Are you a: former smoker Additional Findings: Tobacco Non-User Current no n-smoker Alcohol Screen Question Answer Notes Did you have a drink contain ing alcohol in the past year? Yes How often did you have a dri nk containing alcohol in the past year? 4 or more times a week (4 points) How often did you have 6 or more drinks on one occasion in the past year? Daily or almost daily (4 points) Points 8 Interpretation Positive Tobacco use other than smoking: Question Answer Notes Are you an other tobacco user? 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 confirmed Problem Acquired hammer toe of right foot (3465685609603 105) Acquired hammer toe of right foot (M20.41) Active confirmed Plan Of Treatment Pending Test Test Name Order Date X ray : Foot, right 3V 12/04/2022 [id number] NAIL, 1-5 12/24/2022 94713- Debride <25 sq cm 12/24/2022 [id number] OF HEMATOMA/FLUID 023 Insurance Providers Payer Name Payer Address Payer Phone Subscriber Number Group Number Insured Name Patient Relationship to Insured Coverage Start Date Coverage End Date Medicare National [employer] [address] [place] [address] [id number] Nathan Monique Self - patient is the insured [employer] [address] [place] [address] [phone] [id number] Nathan Monique Self - patient is the insured Medical (General) History Medical History History ICD Code Cancer High blood pressure Surgical History Surgery Date(Month/Year) rotator cuff surgery 2014 Bladder Cancer 2016
--- OUTSIDE RECORDS SUMMARY | 2025-01-10 07:33 | XMS_ITS | Continuity of Care Document ---
Author Organization [facility] Address [address] [place] [address]- Care Team Providers Care Souvenir And Novelty Maker Name Role Phone Jeanette DIRECTOR TECHNICAL, Charlotte Combs Primary Care Physician Encounter [facility] Date(s): 11/19/24 - 12/19/24 [facility] [address] [place], [place] [id number] Attending Physician: Jaswinder Mendoza Admitting Physician: Jaswinder Mendoza Referring Physician: AdmtrJaswinder Encounter Type: Triage Allergies, Adverse Reactions, Alerts Substance Criticality Severity Reaction Reaction Severity Status benazepril 1 unsure Active 1? angioedema Immunizations Given and Recorded Vaccine Date Status Refusal Reason influenza virus vaccine, inactivated 07/09/24 Hang rded influenza virus vaccine, inactivated 06/22/23 Hang rded influenza virus vaccine, inactivated 06/22/22 Hang rded influenza virus vaccine, inactivated 06/20/21 Hang rded influenza virus vaccine, inactivated 08/05/19 Hang rded influenza virus vaccine, inactivated 08/05/18 Hang rded influenza virus vaccine, inactivated 07/30/18 Hang rded influenza virus vaccine, inactivated 1 07/30/17 Gi kandace influenza virus vaccine, inactivated 08/01/16 Give n influenza virus vaccine, inactivated 08/09/15 Give n influenza virus vaccine, inactivated 2 07/31/14 Gi kandace influenza virus vaccine, inactivated 3 08/19/13 Gi kandace influenza virus vaccine, inactivated 08/03/13 Hang rded influenza virus vaccine, inactivated 08/11/11 Give n SARS-CoV-2(COVID-19)mRNA-LNP vac(hal615) 07/13/23 Recorded pneumococcal 20-valent conjugate vaccine 4 06/06/23 Given [id number] bivalent booster vax 07/10/22 Recorded tetanus/diphtheria/pertussis, acel(Tdap) 05/24/22 Given Hepatitis A Adult Vaccine 5 12/21/21 Given Hepatitis A Adult Vaccine 11/21/15 Given SARS-CoV-2 (COVID-19) mRNA-1273 vaccine 08/17/21 R ecorded SARS-CoV-2 (COVID-19) mRNA-1273 vaccine 01/11/21 G iven SARS-CoV-2 (COVID-19) mRNA-1273 vaccine 12/14/20 G iven zoster vaccine, inactivated 02/09/21 Recorded zoster vaccine, inactivated 11/11/20 Recorded Influenza Virus Vaccine (oldterm) 07/02/20 Recorde d Influenza Virus Vaccine (oldterm) 07/28/19 Recorde d Influenza Virus Vaccine (oldterm) 07/23/09 Given pneumococcal 13-valent vaccine 11/21/15 Given pneumococcal 23-valent vaccine 01/16/13 Given Fluzone (oldterm) 07/22/12 Given Zostavax (oldterm) 06/09/12 Given Tet/diphth/pertussis, acel (oldterm) 01/20/11 Give n Influenza Inactive (IM) (oldterm) 07/22/10 Given Tetanus Toxoid Vaccine (oldterm) 10/21/00 Given 1Result Comment: [07/30/2017] HIGH DOSE [facility]: [id number] 2Admin Note: [facility]IN [facility] 3Admin Note: given at [facility] 4Result Comment: [id number] 5Result Comment: [facility]-[id number] Medications brimonidine 0.2% ophthalmic solution 0 Refills, Maintenance, 09/30/24 9:35:00 AM EST, Partial fill upon patient request if the prescription is for a schedule II opioid drug. Start Date: 09/30/24 Status: Ordered Repeat number: 1 fenofibrate 160 mg oral tablet 1 tablet, By Mouth, Daily, # 90 tablet, 1 Refills, Maintenance, 09/29/24 9:49:00 AM EST, [facility], 183, cm, 07/14/24 8:55:00 EDT, Height, 99.4, kg, 07/14/24 8:55:00 EDT, Dry Weight Start Date: 09/29/24 Status: Ordered Quantity: 90.0 Unit: tablet Repeat number: 1 hydrochlorothiazide-spironolactone 25 mg-25 mg oral tablet 1 tablet, By Mouth, Daily, # 90 tablet, 1 Refills, Maintenance, 06/11/24 11:40:00 AM EDT, [facility], 90, TAKE 1 TABLET DAILY, 178, cm, 03/24/24 9:20:00 EDT, Height Start Date: 06/11/24 Status: Ordered Quantity: 90.0 Unit: tablet Repeat number: 1 pantoprazole 40 mg oral delayed release tablet 1 tablet, By Mouth, Daily, # 90 tablet, 1 Refills, Maintenance, 09/03/22 3:26:00 PM EST, 178.4, cm,07/30/22 12:57:00 EDT, Height Start Date: 09/03/22 Status: Ordered Quantity: 90.0 Unit: tablet Repeat number: 1 Vitamin B Complex oral tablet, extended release 1 tablet, By Mouth, Daily, # 30 tablet, 11 Refills, Maintenance, 03/16/18 10:16:20 PM EDT Start Date: 03/16/18 Status: Ordered Quantity: 30.0 Unit: tablet Repeat number: 12 Vitamin B12 1000 mcg oral tablet 1 tablet = 1,000 mcg, By Mouth, Daily, # 90 tablet, 0 Refills, Maintenance, 12/15/16 2:08:36 PM EST,Tablet Start Date: 12/15/16 Status: Ordered Quantity: 90.0 Unit: tablet Repeat number: 1 Vitamin B2 By Mouth, Daily, 0 Refills, Maintenance, 11/02/20 9:34:00 AM EST, Partial fill upon patient request if the prescription is for a schedule II opioid drug. Start Date: 11/02/20 Status: Ordered Repeat number: 1 Problem List Condition Confirmation Course Effective Dates Status Health Status Informant Aortic valve sclerosis 1 Confirmed 12/02/15 Active Herrera's esophagus egd 2018 2 Confirmed Active Benign Essential Hypertension Confirmed Active COPD airtrapiing CT/low dlco fev1 86% Confirmed Active Renal cyst- left lateral Confirmed Active Daily consumption of alcohol Confirmed Active Disorder Of Vitamin B12 low normal;on PPI Confirmed Active Dupuytren's contracture right hand Confirmed Active Abnormal finding on EKG 3 Confirmed 02/09/11 Active Endogenous hypertriglyceridemia Confirmed Active Ex-cigarette smoker quit 2015 4 Confirmed Active Gynecomastia, male/ ++mammogram 2017 5, 6, 7 Confirmed Active H/O herpes zoster 8 Confirmed Active History of bladder cancer S/P resection 2015 9 Confirmed 12/15/15 Active H/O prostate cancer Confirmed Active H/O squamous cell carcinoma of skin Confirmed Active IFG (impaired fasting glucose) Confirmed Active LVH (left ventricular hypertrophy) due to hypertensive disease 10 Confirmed Active Abnormal brain MRI volume loss Confirmed 10/26/19 Active Mild cognitive disorder neuriology moca Confirmed 11/26/19 Active Pulmonary nodules Confirmed 12/09/18 Active x-ray of lumbar spine/hips.left knee djd Confirmed 12/06/21 Active 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 Abnormal CXR Confirmed 11/21/17 Active Fatty liver FIB-4;1.98 11 Confirmed 11/18/17 Active SVC syndrome prior catheter/facial swelling Confirmed Active Presence of urostomy Confirmed Active 1On echocardiogram 2No dysplasia in 2022, repeat EGD in [address] depression lead three ; dats 2003 4counsel; ure8rfij 5dheas,lh normal 6estradiol upper normal 7normal, test, neg hcg, normal tsh 8left T8 or T9 distribution; 9bladder rescted 2015 10per ECHO 11sono Social History Social History Type Response Smoking Status Former smoker; Tobac co user in household: No; Type: Cigarettes; Other: pt quit March 14, 2016; Tobacco use times per day: 1/4-2ppd; Number of years: 51; Total pack years: 60; Started at age: 14; Stopped at age: 65; entered on: 04/03/16 Sex Sex Representation Male (finding) Patient Care team information Care Team Personnel Name: Charlotte Reid NP Position: [facility] PC[facility] Associate Professional Member Role: PCP Address: [address] [place] [id number] Telecom: Care Team Related Persons Name: CULLEN AGUERO Name: HILDA WALKER Insurance Providers Guarantor name: JLUIS AGUERO Health Plan Information #: 1 Payer: MEDICARE PART B OUTPT Member Number: NA Policy Number: NA Group Number: NA Health Plan Information #: 2 Payer: MEDEX Member Number: NA Policy Number: NA Group Number: NA
--- OUTSIDE RECORDS SUMMARY | 2025-01-10 07:33 | XMS_ITS | Data Portability ---
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 There is purulent drainage in the left ear canal. I cannot adequately see the tube. I suctioned the debris. I will start him on Ciprodex drops. [email or web address] Not available 06/15/2024 14:20:12 07/09/2024 07/09/2024 73 year old with persistent left otorrhea. I have issued him a prescription to continue Ciprodex drops. I discussed this patient with Dr. Jones who recommended adding on exam under anesthesia of the left ear at the time of the excision left ventral tongue lesion next week. Patient is happy with this plan. He already has appointment for postoperative follow up. [email or web address] Not available 07/09/2024 10:02:28 10/07/2024 10/07/2024 No palpable lymphadenopathy. 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 Offered opportunity for further excision versus continued close surveillance. Discussed the field cancerization given the pathology margins showing high-grade dysplasia may be difficult to fully clear the margins of dysplasia. [email or web address] Not available 10/07/2024 09:38:38 12/09/2024 12/09/2024 No palpable lymphadenopathy. 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 Offered opportunity for further excision versus continued close surveillance. Discussed the field cancerization given the pathology margins showing high-grade dysplasia may be difficult to fully clear the margins of dysplasia. Followup in 3 months for continued close observation. No palpable masses from right scalp skin cancer in parotid or cervical area. [email or web address] Not available 12/09/2024 10:09:42 Plan of Treatment Reminders Order Date Submit Date Provider Last Modified By Organization Details Last Modified Time Details Appointments Establish ed 15 2024 09:45A M MASSIMO MURRAY MD Not available Not available Not available Lab unlisted lab - H+E histology w/stains 2023 024 [email or web address] [facility] (Centralized Electronic Ordering - All Locations), Patient Can Go To The Location Of Their Choice, [id number] 07/16/2024 14:45:25 Referral None recorded. Procedures None recorded. Surgeries exam under anesthesi a (SURG) 2023 024 [email or web address] Not available 07/09/2024 10:42:29 Imaging None recorded. Medication Orders ciproflox acin 0.3 %-dexamet hasone 0.1 % ear drops,man pension 2023 024 [email or web address] [id number], [address] [place], [address], 08/03/2024 08:27:31 ciproflox acin 0.3 %-dexamet hasone 0.1 % ear drops,man pension 2023 024 [email or web address] [id number], [address] [place], [address], 08/03/2024 08:27:31 Patient TargetsNo targets recorded. Patient InstructionsNo instructions recorded. Reason for Referral None Reported. Results Created Date Observation Date Name Description Value Unit Range Abnormal Flag Note LastModifiedBy Organization Detail LastModifiedTime 06/09/20 24 10/26/2019 imagi ng/di agnos tic resul t No observ ation record ed. [email or web address] Not Available 17:22:12 06/09/20 24 11/29/2022 audio gram No observ ation record ed. [email or web address] Not Available 12:31:12 06/09/20 24 11/29/2022 imagi ng/di agnos tic resul t No observ ation record ed. [email or web address] Not Available 17:22:26 06/09/20 24 05/03/2021 imagi ng/di agnos tic resul t No observ ation record ed. [email or web address] Not Available 17:22:37 06/09/20 24 09/08/2019 imagi ng/di agnos tic resul t No observ ation record ed. [email or web address] Not Available 17:22:47 06/09/20 24 11/29/2022 audio gram No observ ation record ed. [email or web address] Not Available 17:23:06 06/09/20 24 01/18/2023 audio gram No observ ation record ed. [email or web address] Not Available 17:23:15 06/09/20 24 05/03/2021 audio gram No observ ation record ed. [email or web address] Not Available 17:23:27 06/09/20 24 09/08/2019 audio gram No observ ation record ed. [email or web address] Not Available 17:23:54 Result Notes None recorded. 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 62346365564 94784 Active 2022 Exostosi s of external canal, bilatera l; Note: Date Diagnose d: 11/29/2022 10:52 AM (H61.813 ) Not Available [facility] 4 02:45:07 Abnormal auditory percepti on 79108403 Active 2019 Other abnormal auditory percepti ons, left ear; Note: Date Diagnose d: 0 8:57 AM (H93.292 ) Not Available [facility] 4 02:45:04 Impacted cerumen in right ear 38287023629 79144 Active 2017 Impacted cerumen, right ear; Note: Date Diagnose d: 10/23/2017 9:09 AM (H61.21) Not Available [facility] 4 02:44:58 Chronic serous otitis media 51790290 Active 2013 Chronic serous otitis media; Note: Date Diagnose d: 09/29/20 14 9:17 AM (381.10) Not Available [facility] 4 02:45:00 Bilatera l disorder of Eustachi an tubes 96829656007 58343 Active 2014 Other specifie d disorder s of Eustachi an tube, bilatera l; Note: Date Diagnose d: 08/18/20 15 11:50 AM (H69.83) Not Available [facility] 4 02:45:04 Mixed conducti ve and sensorin eural hearing loss of left ear 43333101061 107 Active 2015 Mixed conducti ve and sensorin eural hearing loss, unilater al, left ear, with unrestri cted hearing on the contrala teral side; Note: Date Diagnose d: 08/18/20 15 11:50 AM (H90.72) ; Start Date : 08/18/20 15 Mixed conducti ve and sensorin eural hearing loss, unilater al, left ear with restrict ed hearing on the contrala teral side; Note: Date Diagnose d: 09/03/20 16 12:57 PM (H90.A32 ) Not Available [facility] 4 02:45:00 Mass of neck 595077445 Active 2015 Localize d swelling , mass and lump, neck; Note: Date Diagnose d: 08/17/20 16 2:38 PM (R22.1) Not Available [facility] 4 02:45:02 Neck swelling 299557927 Active 2015 Localize d swelling , mass and lump, neck; Note: Date Diagnose d: 08/17/20 16 2:38 PM (R22.1) Not Available [facility] 4 02:45:02 Sensorin eural hearing loss 77266753 Active 2014 Sensorin eural hearing loss, unilater al, right ear, with unrestri cted hearing on the contrala teral side; Note: Date Diagnose d: 08/18/20 15 11:50 AM (H90.41) Not Available [facility] 4 02:45:07 Middle ear conducti ve hearing loss 55567858 Active 2013 Conducti ve hearing loss, middle ear; Note: Date Diagnose d: 09/29/20 14 9:17 AM (389.03) Not Available [facility] 4 02:45:00 Otorrhea of right ear 03940439886 81516 Active 2014 Otorrhea , right ear; Note: Date Diagnose d: 09/30/20 15 3:32 PM (H92.11) Not Available [facility] 4 02:45:01 Disorder of right Eustachi an tube 79214137351 03831 Active 2015 Other specifie d disorder s of Eustachi an tube, right ear; Note: Date Diagnose d: 6 12:50 PM (H69.81) Not Available [facility] 4 02:45:05 Otorrhea of left ear 66647604512 63002 Active 2022 Otorrhea , left ear; Note: Date Diagnose d: 11/29/2022 10:52 AM (H92.12) Otorrh ea, left ear; Note: Date Diagnose d: 1 11:48 AM (H92.12) ; Start Date : 04/14/20 21 Otorr hea, left ear; Note: Date Diagnose d: 1 9:24 AM (H92.12) ; Start Date : 11/03/19 21 Otorr hea, left ear; Note: Date Diagnose d: 09/05/20 20 11:17 AM (H92.12) ; Start Date : 09/05/20 20 Otorr hea, left ear; Note: Date Diagnose d: 0 12:24 PM (H92.12) ; Start Date : 04/15/20 20 Otorr hea, left ear; Note: Date Diagnose d: 9 9:52 AM (H92.12) ; Start Date : 07/01/20 19 Otorr hea, left ear; Note: Date Diagnose d: 10/29/2018 1:39 PM (H92.12) ; Start Date : 10/29/19 19 Not Available [facility] 4 02:45:05 Sensorin eural hearing loss of bilatera l ears 791729419 Active 2016 Sensorin eural HL, bilatera l; Note: Date Diagnose d: 5 9:51 AM (389.18) ; Start Date : 11/05/19 15 Senso rineural hearing loss, bilatera l; Note: Date Diagnose d: 7 2:06 PM (H90.3) Sensor ineural hearing loss, bilatera l; Note: Date Diagnose d: 6 11:38 AM (H90.3) ; Start Date : 11/02/19 16 Not Available [facility] 4 02:44:59 Sensorin eural hearing loss in right ear 04596247944 100 Active 2015 Sensorin eural hearing loss, unilater al, right ear, with restrict ed hearing on the contrala teral side; Note: Date Diagnose d: 09/03/20 16 12:57 PM (H90.A21 ) Not Available [facility] 4 02:45:04 Otitis externa of left ear 16587192464 89596 Completed 201605/22/2024 Other otitis externa, left ear; Note: Date Diagnose d: 7 11:30 AM (H60.8X2 ) Not Available [facility] 4 02:45:03 Dysfunct ion of eustachi an tube 20123016 Active 2013 Eustachi an tube dysfunct ion; Note: Date Diagnose d: 09/29/20 14 9:17 AM (381.81) Eustac hian tube dysfunct ion; Note: Date Diagnose d: 09/29/20 14 9:54 AM (381.81) Not Available [facility] 4 02:45:02 Chronic mucoid otitis media of left middle ear 27174460559 79015 Active 2018 Chronic mucoid otitis media, left ear; Note: Date Diagnose d: 9 9:54 AM (H65.32) Not Available [facility] 4 02:44:59 Mixed conducti ve and sensorin eural hearing loss, bilatera l 564877552 Active 2015 Mixed conducti ve and sensorin eural hearing loss, bilatera l; Note: Date Diagnose d: 10/04/20 16 9:25 AM (H90.6) Not Available [facility] 4 02:45:06 Unilater al mixed conducti ve and sensorin eural hearing loss with unrestri cted hearing on the contrala teral side Active 2013 Mixed HL, unilater al; Note: Date Diagnose d: 09/29/20 14 9:54 AM (389.21) Not Available [facility] 4 02:45:06 Chronic maxillar y sinusiti s 38356001 Active 2016 Chronic maxillar y sinusiti s; Note: Date Diagnose d: 7 2:03 PM (J32.0) Not Available [facility] 4 02:44:58 Tobacco dependen ce syndrome 41797963 Active 2013 Tobacco abuse; Note: Date Diagnose d: 09/29/20 14 9:17 AM (305.1) Not Available [facility] 4 02:44:58 Otalgia of left ear 9594499290 Active 2018 Otalgia, left ear; Note: Date Diagnose d: 9 9:53 AM (H92.02) Not Available [facility] 4 02:45:03 Otalgia of right ear 4068694276 Active 2017 Otalgia, right ear; Note: Date Diagnose d: 10/23/2017 9:09 AM (H92.01) Not Available [facility] 4 02:45:01 Bilatera l chronic serous otitis 510082042 Active 2017 Chronic serous otitis media, bilatera l; Note: Date Diagnose d: 8 11:05 AM (H65.23) Not Available [facility] 4 02:45:03 Unilater al sensorin eural hearing loss with unrestri cted hearing on the contrala teral side Active 2013 Sensorin eural HL, unilater al; Note: Date Diagnose d: 09/29/20 14 9:54 AM (389.15) Not Available [facility] 4 02:45:02 Lesion of tongue 470532454 Active 2023 LORETO KELLY MD [address], [place], [place], [address] , [place] - [facility] 4 14:18:35 Neoplasm of uncertai n behavior of tongue 85368695 Active 2023 LORETO KELLY MD [address], [place], [place], [address] , [place] - [facility] 4 11:00:38 Current drinker 523188 Active 2023 LORETO KELLY MD [address], [place], [place], [address] , [place] - [facility] 4 08:36:11 Actinic keratosi s 962170986 Active 2023 LORETO KELLY MD [address], [place], [place], [address] , [place] - [facility] 4 08:37:20 Malignan t tumor of tongue 249242140 Active 2023 Tumor location - Left ventral tongue Stage - T1N0 Treatmen t - wide local excision Completi on - 07/14/24 Oncology team - Rashida MURRAY MD [address], [place], [place], [address] , [place] - [facility] 4 11:25:35 Otitis externa of left ear 30427297921 29327 Active 2016 Maricruz haywood [place] - [facility] 4 09:21:41 Notes:Some problems listed i n Document: #[id number] could not be added to this patient's chart. Please review this document and add these problems to the patient's chart manually as needed. Problem Notes None recorded. Procedures Surgical History Date Name Laterality Status Provider Name and Address Organization Details Recorded Time 4 excision of lesion of tongue completed LORETO JONES MD 100 [facility],[address], [address], [place] - [facility] 07/14/2024 15:23:25 4 Eardrum revision completed LORETO JONES MD 100 [facility],[place] [address], [place], [address], [place] [facility] 07/14/2024 15:24:08 4 Biopsy Anterior Tongue completed LORETO JONES MD 100 [facility],[address], [address], [facility] - [facility] 06/15/2024 14:18:28 Imaging Results Imaging Date Name Status [facility] Details LastModified Time 10/26/2019 imaging/diagno stic result completed Information not available 06/09/2024 17:22:12 11/29/2022 audiogram completed [email or web address] Information not available 06/15/2024 12:31:12 11/29/2022 imaging/diagno stic result completed Information not available 06/09/2024 17:22:26 05/03/2021 imaging/diagno stic result completed Information not available 06/09/2024 17:22:37 09/08/2019 imaging/diagno stic result completed Information not available 06/09/2024 17:22:47 11/29/2022 audiogram completed Information not available 06/09/2024 17:23:06 01/18/2023 audiogram completed Information not available 06/09/2024 17:23:15 05/03/2021 audiogram completed Information not available 06/09/2024 17:23:27 09/08/2019 audiogram completed Information not available 06/09/2024 17:23:54 Procedure Notes None recorded. Medical Equipment None Reported. Allergies Allergen ID Allergen Name Allergen Category Reaction Reaction Severity Criticality Documentation Date Start Date Code Code System Note Provider Name and Address Organization Details Recorded Time 916607 prednison e medicatio n other Not available Not available 03/03/2024 8640 RxNorm React ion: unkno wn, unspe cifie d;; Not Available [facility] 4 01:12:03 496037 benazepri l medicatio n other Not available Not available 03/03/2024 27448 RxNorm React ion: unkno wn, unspe cifie d;; Not Available [facility] 01:12:05 Medications Name Sig Start Date Stop Date Status Note LastModified by Organization Details LastModified Time Augmentin 875 mg-125 mg tablet 06/15 completed Not Available Not Available Not Available nystatin 100,000 unit/mL oral suspensio n SWISH 5 ML IN MOUTH FOR SEVERAL MINUTES, THEN SWALLOW. REPEAT 4 TIMES DAILY. 07/08 completed Not Available Not Available Not Available doxycycli ne hyclate 100 mg capsule 02/27 completed Not Available Not Available Not Available spironola ctone 25 mg-hydroc hlorothia zide 25 mg tablet TAKE 1 TABLET DAILY active Not Available Not Available No t Available metronida zole 250 mg tablet 11/03 completed Not Available Not Available Not Available clobetaso l 0.05 % topical cream 11/29 completed Not Available Not Available Not Available amlodipin e 5 mg tablet 01/02 completed Not Available Not Available Not Available Ciloxan 0.3 % eye drops 06/15 completed Not Available Not Available Not Available ketorolac 0.5 % eye drops PLEASE SEE ATTACHED FOR DETAILED DIRECTIO NS active Not Available Not Available No t Available ofloxacin 0.3 % ear drops 5 drop into both ears 08/03 completed Not Available Not Available Not Available prednisol one acetate 1 % eye drops,man pension INSTILL 1 DROP INTO AFFECTED EYE 3 TIMES A DAY STARTING 2 DAYS BEFORE SURGERY. CONTINUE DIRECTED active Not Available Not Available No t Available sulfaceta mide sodium 10 % eye drops 08/03 completed Not Available Not Available Not Available pantopraz ole 40 mg tablet,de layed release 05/03 completed Not Available Not Available Not Available neomycin- polymyxin -dexameth 3.5 mg/mL-10, 000 unit/mL-0 .1% eye drops 4 drop 12/29 completed Not Available Not Available Not Available ranitidin e 150 mg tablet 08/27 completed Not Available Not Available Not Available prednison e 50 mg tablet 08/27 completed Not Available Not Available Not Available brimonidi ne 0.2 % eye drops 1 drop twice a day by ophthalm ic route. 2023 active Not Available Not Available Not Avai lable clotrimaz ole 1 % topical solution APPLY TOPICALL Y TO THE AFFECTED AREA TWICE DAILY FOR 7 DAYS 08/03 completed Not Available Not Available Not Available betametha sone, augmented 0.05 % topical ointment 11/29 completed Not Available Not Available Not Available monteluka st 10 mg tablet 08/27 completed Not Available Not Available Not Available mupirocin 2 % topical ointment 11/29 completed Not Available Not Available Not Available methylpre dnisolone 4 mg tablets in a dose pack TAKE 6 TABLETS ON DAY 1 DIRECTED ON PACKAGE AND DECREASE BY 1 TAB EACH DAY FOR A TOTAL OF 6 DAYS 08/03 completed Not Available Not Available Not Available fluticaso ne propionat e 50 mcg/actua tion nasal spray,[facility] active Medicati on ID: [id number] B rand Name: fluticas one propiona te Send Method: E-Prescr ibed Sub s Allowed: subs OK Medic ationGen ericName : fluticas one propiona te Not Available Not Available Not Available TobraDex 0.3 %-0.1 % eye drops,man pension 11/03 completed Not Available Not Available Not Available Lotrel 10 mg-20 mg capsule 08/27 completed Not Available Not Available Not Available ciproflox acin 0.3 %-dexamet hasone 0.1 % ear drops,man pension APPLY 5 DROP INTO LEFT EAR TWICE A DAY active Not Available Not Available No t Available fenofibra te 160 mg tablet TAKE 1 TABLET DAILY active Not Available Not Available No t Available [facility] 180 mg tablet 11/03 completed Not Available Not Available Not Available Fluvirin 7444-8562 45 mcg (15 mcg x 3)/0.5 mL intramusc ular suspensio n 08/17 completed Not Available Not Available Not Available Vitals Date Recorded Body height Body mass index (BMI) Body weight Provider Name and Address Organization Details Last Updated DateTime 06/15/2024 182.88 cm 29.8 kg/m2 72491.32 g Jone Shanks [place] - [facility] 06/15/2024 13:49:40 Date Recorded Body height Body mass index (BMI) Body weight Provider Name and Address Organization Details Last Updated DateTime 07/09/2024 182.88 cm 29.8 kg/m2 56636.32 g Sandy Marie [place] - [facility] 07/09/2024 09:11:11 Date Recorded Body height Body mass index (BMI) Body weight Provider Name and Address Organization Details Last Updated DateTime 08/03/2024 182.88 cm 29.8 kg/m2 37685.32 g Kaylee Armenta [place] - [facility] 08/03/2024 08:27:25 Date Recorded Body height Body mass index (BMI) Body weight Provider Name and Address Organization Details Last Updated DateTime 10/07/2024 182.88 cm 29.8 kg/m2 99352.32 g Maricruz Camp [place] - [facility] 10/07/2024 09:21:28 Date Recorded Body height Body mass index (BMI) Body weight Provider Name and Address Organization Details Last Updated DateTime 12/09/2024 182.88 cm 30.1 kg/m2 220719.51 g Martin Guerrero [place] - [facility] 12/09/2024 09:49:15 Social History Question Answer Notes LastModified by Organizat ion Details LastModified Time Tobacco Smoking Status Former Smoker LORETO JONES MD [address] [place] [address], [address], [facility] - [facility] 06/15/2024 14:13:21 What Is Your Level Of Alcohol Consumption? Moderate Information not available 06/15/2024 How Many Times Per Week Do You Consume Alcohol? 5-7 Times Per Week Information not available 06/15/2024 How Many Alcoholic Drinks Do You Consume Per Day On Average? 4 Information not available 06/15/2024 When Did You Quit Smoking? 6-10yearssinc elastcigarett e Information not available 06/15/2024 Sex: Unknown Functional Status None recorded. Mental Status None recorded. Family History Nothing Reported. Medical History Condition Response Tonsil Infections N Emphysema N Glaucoma N Depression N COPD N Nasal or Sinus Problems N Anesthesia Complications N Arthritis N Hearing Loss Y Cancer Y Stroke N High Cholesterol Y Liver Disease N Headaches N Fibromyalgia N Speech Delay N Kidney Disease N Allergies/Hayfever N Heart Problems N Anxiety N Migraines N Thyroid Problems N Developmental Delay N Anemia N Immune System Disorder N Heart Attack ([place]) N Other Skin Condition N Diabetes N Rhinitis N Bleeding Disorder N Food Allergy N Hyperlipidemia N Dementia N Nasal polyps N Asthma N Sleep Disorder N GERD/Reflux Y Hypertension Y Past Encounters Encounter ID Performer Location Encounter Start Date Encounter Closed Date Diagnosis/Indication Diagnosis SNOMED-CT Code Diagnosis ICD10 Code Diagnosis Note [id number] LORETO KELLY MD [facility] [address] [address] 06/15/2024 13:37:25 06/15/2024 14:25:25 Otorrhea of left ear 6711512800 858651 H92.12 Lesion of tongue 2540104 05 K14.9 Recently diagnosed with lesion of the left ventral tongue and placed on nystatin. This appears to be more like leukoplaki a. We discussed proceeding with biopsy. Depending on the results of the biopsy we may need to consider additional procedures . [id number] LORETO KELLY MD [facility] [address] [address] 07/09/2024 08:47:57 07/09/2024 09:31:17 Otorrhea of left ear 3660471260 575206 H92.12 Lesion of tongue 0975041 05 K14.9 [id number] LORETO KELLY MD [facility] [address] [address] 08/03/2024 08:20:07 08/03/2024 08:41:55 History of malignant neoplasm of tongue 984772503 Z85.810 We reviewed that this area needs to be watched closely and I have suggested a trial of curcumin supplement s. Discussed he needs to notify his physicians as this can cause excess bleeding with invasive procedures I have also suggested an evaluation with Dr. Murray for considerat ion of reexcision and grafting versus serial examinatio ns. 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 There is also actinic damage of the left cheek. Suggest dermatolog y evaluation [id number] MASSIMO MURRAY MD [facility] [address] [address] 10/07/2024 08:36:40 10/07/2024 09:39:05 Malignant tumor of tongue 632520489 C02.9 [id number] MASSIMO MURRAY MD [facility] [address] [address] 12/09/2024 09:43:00 12/09/2024 10:25:14 Malignant tumor of tongue 533181189 C02.9 Health Concerns Section Related Observation LastModified by Organization Detai ls LastModified Time None Recorded Concern Status LastModified by Organization Details LastModified Time None Recorded Advance Directives Directive None Recorded Payers Encounter Date Sequence Insurance Name Policy Number Policy Platt Covered Member ID Platt Member ID Guarantor Name 06/15/2024 1 [place] [employer] Nathan Monique [id number] Nathan Monique 06/15/2024 2 [place] [id number] Nathan Monique [id number] Nathan Monique 07/09/2024 1 [place] Nathan Cannonz [id number] Nathan Nicolas Bartosz 07/09/2024 2 [place] [id number] Nathan Nicolas Bartosz [id number] Nathan Nicolas Bartosz 08/03/2024 1 [place] Nathan Nicolas Bartosz [id number] Nathan Nicolas Bartosz 08/03/2024 2 [place] [id number] Nathan Nicolas Bartosz [id number] Nathan Nicolas Bartosz 10/07/2024 1 [place] Nathan Nicolas Bartosz [id number] Nathan Nicolas Bartosz 10/07/2024 2 [place] [id number] Nathan Nicolas Bartosz [id number] Nathan Nicolas Bartosz 12/09/2024 1 [place]MENT [place] Nathan Linosz [id number] Nathan Nicolas Bartosz 12/09/2024 2 [place] [id number] Nathan Linosz [id number] Nathan Cannonz Notes Date Note Type Note Provider Name and Address Organization Details Recorded Time 06/15/2024 text/html Patient with his tory of ear canal exostoses, balloon dilatation of the eustachian tubes and T-tube remaining in the left ear canal at last visit. Most recently saw Dr. Hoover last year who recommended excision of the exostoses and reconstruction of the left ear canal He notes 3 weeks of drainage from left ear. No CP or SOB Recently dentist noticed some hyperkeratosis left ventral tongue. It sounds like oral surgeon placed him on nystatin. Remote history of tobacco use. None for 8 years LORETO JONES MD [address] [place] [address], [phone], [place] - [facility] 06/15/2024 16:51:40 07/09/2024 text/html 73 year old male presents to the office for follow up of the left ear infection and tongue biopsy. He had no issues following the biopsy. He completed Ciprodex drops for the left ear. He denies drainage from the left ear. He has surgery scheduled for next Saturday for excision of the remainder of his left ventral tongue lesion as his biopsy did show precancerous changes. LORETO JONES MD [address] [facility],[address], [phone], [facility] - [facility] 07/09/2024 13:26:15 08/03/2024 text/html Patient with rec ent excision of a lesion of the left ventral tongue. 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 He drinks about 6 beers per night no longer smoking. Last 8 years ago. He has a history of chronic otitis media. Has some moisture in the left ear canal. Wears a hearing aid on that side. LORETO JONES MD [address] [facility],[address], [phone], 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
[2025-01-10] MEDS: Acetaminophen 325 MG TABLET 975 MG PO (07:44)
[2025-01-10] MEDS: 0.9 % Sodium Chloride 1,000 ML 999 ML IV (08:04)
[2025-01-10] MEDS: LORazepam 2 MG/ML VIAL IVPUSH (08:08)
[2025-01-10 08:09] LABS: MANUAL DIFF FLAG NO
[2025-01-10 08:11] LABS: Venous Blood Gas Refer to POC result
[2025-01-10 08:12] LABS: VBG Base Excess 1.1 mmol/L; VBG HCO3 23 mmol/L (22-26); VBG pCO2 31 mmHg; VBG pH 7.48 (7.32-7.43); VBG pO2 59 mmHg
[2025-01-10] MEDS: hydroCHLOROthiazide 25 MG TABLET PO (08:20)
[2025-01-10] MEDS: Spironolactone 25 MG TABLET PO (08:20)
[2025-01-10 08:24] LABS: Basophils Absolute Auto 0.1 X10*3/uL (0.0-0.2); Basophils Percent Auto 0.3 % (0-2); Eosinophils Percent Auto 0.2 % (0-4); Hematocrit 43.4 % (42.0-52.0); Imm Gran Abs Auto 0.08 X10*3/uL (0.00-0.03); Imm Gran Pct Auto 0.5 % (0.0-0.4); Lymphocytes Absolute Auto 0.6 X10*3/uL (1.2-4.9); Lymphocytes Percent Auto 3.2 % (20-40); Mean Corpuscular HGB Conc 34.6 g/dl (31.0-36.0); Mean Corpuscular Hemoglobin 29.7 pg (27.0-33.0); Mean Corpuscular Volume 85.9 fL (80.0-98.0); Monocytes Absolute Auto 1.5 X10*3/uL (0.1-1.2); Monocytes Percent Auto 8.4 % (2-11); Neutrophils Absolute Auto 15.2 x10*3/uL (2.0-8.3); Neutrophils Percent Auto 87.4 % (45-73); Platelet Count 326 X10*3/uL (160-400); Red Blood Count 5.05 X10*6/uL (4.60-5.80); White Blood Count 17.4 X10*3/uL (4.8-10.8)
[2025-01-10] MEDS: Thiamine HCL 100 MG in 0.9 % Sodium Chloride 100 ML 202 MG IV (08:53)
[2025-01-10 08:56] LABS: Alanine Aminotransferase 11 U/L (0-40); Albumin Level 3.7 g/dL (3.5-5.0); Alkaline Phosphatase 50 U/L (39-117); Anion Gap 16 (12-20); Aspartate Amino Transferase 21 U/L (5-37); Blood Urea Nitrogen 4 mg/dL (9-16); Calcium 8.6 mg/dL (8.4-10.2); Carbon Dioxide 21 mmol/L (22-29); Chloride 101 mmol/L (96-108); Estimated Glomerular Filt Rate > 60; Glucose Random 123 mg/dL (60-115); Magnesium 1.5 mg/dL (1.6-2.6); Potassium 3.3 mmol/L (3.3-5.1); Sodium 135 mmol/L (135-145); Total Protein 7.7 g/dL (6.5-8.0)
[2025-01-10] MEDS: Metoprolol Tartrate 5 MG/5 ML VIAL IVPUSH (08:58)
[2025-01-10 09:04] LABS: Troponin-I High Sensitivity 10.3 ng/L (<3.5-35.0)
[2025-01-10 09:08] LABS: Lactic Acid 2.3 mmol/L (0.5-2.0)
[2025-01-10] MEDS: iohexoL 350 MG/ML 100 ML INFUS..BTL IV (09:24)
[2025-01-10 09:26] LABS: Influenza A PCR NEGATIVE (Negative); Influenza B PCR NEGATIVE (Negative); Resp Syncy Virus RNA Qual PCR NEGATIVE (Negative); SARS COV2 PCR INHOUSE NEGATIVE (Negative)
[2025-01-10] MEDS: Magnesium Sulfate/H2O 2 GM/50 ML PIGGYBACK IV (09:38)
--- NOTE | 2025-01-10 10:05 | ECG_ITS ---
Test Reason : CHANGE IN RYTHM Blood Pressure : */* mmHG Vent. Rate : 92 BPM Atrial Rate : 92 BPM P-R Int : 194 ms QRS Dur : 102 ms QT Int : 386 ms P-R-T Axes : 97 51 48 degrees QTcB Int : 477 ms Sinus rhythm with occasional Premature ventricular complexes and Premature atrial complexes Otherwise normal ECG When compared with ECG of 10-Jan-2025 07:46, Sinus rhythm has replaced Atrial flutter ST no longer elevated in Inferior leads Referred By: Fanta Gonzalez Electronically Signed By: CHARLOTTE GOODWIN MD
[2025-01-10 10:07] LABS: Reflex Lactate? Lactic Acid Added
[2025-01-10] MEDS: PHENobarbitaL sodium 130 MG/ML IM ONCE 301 MG IM (10:07)
[2025-01-10] MEDS: cefTRIAXone sodium 1 GM VIAL IVPUSH (10:09)
[2025-01-10] MEDS: Azithromycin 500 MG in 0.9 % Sodium Chloride 250 ML 125 MG IV (10:13)
[2025-01-10 10:23] LABS: Lactic Acid 1.6 mmol/L (0.5-2.0)
[2025-01-10 10:30] LABS: Troponin-I High Sensitivity 14.2 ng/L (<3.5-35.0)
[2025-01-10 10:58] LABS: Folate 15.8 ng/mL (> or = 4.0); Vitamin B12 474 pg/mL (200-900)
--- NOTE | 2025-01-10 10:59 | P.HPHOSP_ITS ---
History of Present Illness Date of Service: 01/10/25 Attending physician on admission: Omar Cote Chief Complaint: Fever and cough Pt is a 74-year-old male with a PMH significant for?HTN, hx of bladder cancer, s/p prostatectomy and cystectomy with urostomy in place, tongue cancer s/p resection, skin cancer s/p resection, and alcohol dependence who presents to the ED after developing cough and fever overnight. Pt reports cough began last night; has been nonproductive. Earlier this morning spiked a fever as high as 103.5. Pt denies any significant SOB or difficulty breathing. No increased fatigue. Denies palpitations. No chest pain/pressure. Denies sick contacts. No lower leg edema. Denies orthopnea. No previous hx palpitations or arrhythmias. Pt reports drinks 6-11 beers every afternoon/evening. Begins drinking at 15:00 until bedtime. Denies hx of alcohol withdrawal. In the ED pt was febrile up to 100.7, tachycardic up to 146, tachypneic up to 24, hypertensive up to 167/67, and hypoxic at 87% on RA. Labs were significant for leukocytosis of 17.4, lactic acid 2.3 with repeat 1.6, and magnesium 1.5. VBG pH 7.48 with pCO2 31 and bicarb 23. Tested negative for flu, COVID, RSV. CXR without acute findings. Chest CT with IV contrast negative for pneumonia, but with findings most characteristic double mild bronchitis/bronchiolitis. EKG demonstrated atrial flutter with variable AV block and prolonged QTc of 565. Repeat EKG showed sinus rhythm with occasional PVCs and PACs. Pt was treated with acetaminophen, IVF, lorazepam, thiamine IV, metoprolol IV, spironolactone, Mag sulfate, ceftriaxone, azithromycin, and started on phenobarb protocol. Pt will be admitted to the hospital for treatment and further evaluation of new onset atrial flutter with RVR as well as acute hypoxic respiratory failure in the setting of viral vs bacterial respiratory infection. Review of Systems 2 Review of Systems: Negative except for that which is stated in HPI. [facility] Medical History (Updated 01/10/25 @ 12:30 by JOHANNA Mccarty) Tongue cancer Bladder cancer Alcohol use disorder HTN (hypertension) Surgical History (Updated 01/10/25 @ 12:30 by JOHANNA Mccarty) H/O prostatectomy Hx of total cystectomy History of bladder surgery (Unknown) Hx of shoulder surgery (Unknown) Hx of shoulder surgery (Unknown) Social History Patient Tobacco Use Status: Never used Tobacco Use of substances other than those prescribed or required for medical reasons: No Advance Directives: No Advance Directives Information Provided: Yes Current occupational status: retired 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 Meds Allergies Allergy/AdvReac Type Severity Reaction Status Date / Time benazepril Allergy Mild Unknown Uncoded 01/10/25 07:15 Active Medications: Current Medications Magnesium Sulfate (Magnesium Sulfate/H2o) 2 gm in 50 mls @ 25 mls/hr IV ONCE ONE Stop: 01/10/25 11:05 Last Admin: 01/10/25 09:38 Dose: 25 mls/hr Azithromycin 500 mg/ Sodium (Chloride) 250 mls @ 125 mls/hr IV ONCE ONE Stop: 01/10/25 11:32 Last Admin: 01/10/25 10:13 Dose: 125 mls/hr Pharmacy Consult (Consult Rx Etoh Phenob Im/Po) 1 each MISCELLANE ONCE PRN; Protocol PRN Reason: Consult order Phenobarbital (Phenobarbital 30 Mg Tablet) 60 mg PO BID JODIE; Protocol Stop: 01/12/25 21:01 Phenobarbital (Phenobarbital 30 Mg Tablet) 30 mg PO BID JODIE; Protocol Stop: 01/14/25 21:01 Phenobarbital (Phenobarbital 30 Mg Tablet) 30 mg PO DAILY JODIE; Protocol Stop: 01/16/25 09:01 Phenobarbital Sodium (Phenobarbital Sodium 130 Mg/Ml Vial Im Q3hx2) 226 mg IM Q3H JODIE; Protocol Stop: 01/10/25 16:01 Home Medications ?Medication ?Instructions ?Recorded ?Confirmed ?Last Taken ?Type fenofibrate 160 mg tablet 160 mg PO DAILY 12/25/23 01/10/25 01/09/25 History cyanocobalamin (vitamin B-12) 1,000 mcg PO DAILY 01/10/25 01/10/25 01/09/25 History 1,000 mcg tablet pantoprazole 40 mg tablet,delayed 40 mg PO Q2D@0630 01/10/25 01/10/25 01/09/25 History release (Protonix) riboflavin (vitamin B2) 400 mg 400 mg PO DAILY 01/10/25 01/10/25 01/09/25 History tablet spironolactone 25 1 tab PO DAILY 01/10/25 01/10/25 01/09/25 History mg-hydrochlorothiazide 25 mg tablet thiamine HCl (vitamin B1) 100 mg 100 mg PO DAILY 01/10/25 01/10/25 01/09/25 History tablet Physical Exam 2 Vital Signs and Narrative: Vital Signs: Last Vital Signs Temp 100.1 F 01/10/25 09:06 Pulse 88 01/10/25 10:05 Resp 24 H 01/10/25 10:05 BP 131/78 01/10/25 10:05 Pulse Ox 93 01/10/25 10:05 O2 Del Method Nasal Cannula 01/10/25 10:05 O2 Flow Rate 1 01/10/25 10:05 BMI result Body Mass Index 30.8 General: AOx3, no acute distress Resp: CTA bilaterally CVS: S1, S2, RRR GI: +BS, NT, no distention. Urostomy in place. Skin: Warm, dry Neuro: Cranial nerves II-XII grossly intact bilaterally. Motor grossly intact bilaterally. No tongue fasciculations. No upper extremity tremors noted. Extremities: No edema Psych: Appropriate affect Results Labs 01/10/25 07:59 01/10/25 07:59 Labs: Laboratory Results - last 24 hr 01/10/25 01/10/25 01/10/25 07:59 08:08 10:01 MCV 85.9 MCH 29.7 MCHC 34.6 RDW 15.0 Plt Count 326 MPV 9.0 L Immature Gran % (Auto) 0.5 H Neut % (Auto) 87.4 H Lymph % (Auto) 3.2 L Greenlee % (Auto) 8.4 Eos % (Auto) 0.2 Baso % (Auto) 0.3 Lymph # (Auto) 0.6 L Greenlee # (Auto) 1.5 H Eos # (Auto) 0.0 Baso # (Auto) 0.1 Abs Immat Gran (auto) 0.08 H Absolute Neuts (auto) 15.2 H Absolute Nucleated RBC 0.000 Nucleated RBC % (auto) 0.0 VBG pH 7.48 H VBG pCO2 31 VBG pO2 59 VBG HCO3 23 VBG O2 Saturation 88.0 VBG Base Excess 1.1 Anion Gap 16 Estim Creat Clear Calc 110.0 Estimated GFR > 60 Random Glucose 123 H Lactic Acid 2.3 H* 1.6 Calcium 8.6 Magnesium 1.5 L Total Bilirubin 1.0 AST 21 ALT 11 Alkaline Phosphatase 50 Total Protein 7.7 Albumin 3.7 Vitamin B12 474 Folate 15.8 Influenza Type A (PCR) NEGATIVE Influenza Type B (PCR) NEGATIVE RSV RNA Qual (PCR) NEGATIVE SARS-CoV-2 RNA (RT-PCR) NEGATIVE Assessment and Plan (1) New onset atrial flutter: Status: Acute (2) Atrial flutter with rapid ventricular response: Status: Acute (3) Hypomagnesemia: Status: Acute Plan Pt is a 74-year-old male with a PMH significant for?HTN, hx of bladder cancer, s/p prostatectomy and cystectomy with urostomy in place, tongue cancer s/p resection, skin cancer s/p resection, and alcohol dependence who presents to the ED after developing cough and fever overnight. Pt will be admitted to the hospital for treatment and further evaluation of new onset atrial flutter with RVR as well as acute hypoxic respiratory failure in the setting of viral vs bacterial respiratory infection. New onset atrial flutter with RVR Initial EKG showing atrial flutter with variable AV block and HR of 565 Pt given metoprolol 5 mg IV x1, returned to sinus rhythm Pt asymptomatic Echocardiogram Cardiology consult Will start Eliquis 5 mg p.o. b.i.d. Monitor on telemetry Acute hypoxic respiratory failure In the setting of likely respiratory infection Pt with cough, fever of 103.5 measured at home, desatting to 87% on RA in the ED CXR negative, CTA of chest without consolidative pneumonia, most characteristic of mild bronchitis/bronchiolitis Will meet SIRS criteria with tachycardia, tachypnea, leukocytosis; lactic acid 2.3 with repeat 1.6 Unclear if viral vs bacterial Pt given IVF and started on broad-spectrum antibiotics in the ED Will empirically treat with ceftriaxone and azithromycin, started 01/10/2025 Check procalcitonin, full respiratory panel Alcohol dependence Pt reports drinking 6-11 beers daily for many years Denies hx of alcohol withdrawal Will preemptively place on phenobarb protocol Thiamine, folic acid, daily vitamin Addiction medicine consult Monitor on CIWA Hypomagnesemia Replenished in the ED Follow Mag HTN Continue spironolactone, hydrochlorothiazide HLD Continue fenofibrate Hx of bladder cancer Urostomy in place Full Code Attending:?Dr. Cote DVT Prophylaxis: Lovenox Pt will require a hospitalization of at least two nights for treatment of? with . Quality Stroke Does the patient have a stroke diagnosis?: No VTE Prior VTE?: No VTE Risk Level:: Medical - moderate - high VTE Device Contraindication: Treatment Not Indicated VTE Drug Contraindication: N/A - Med Ordered
[2025-01-10 11:33] LABS: Procalcitonin 0.03 ng/mL
--- NOTE | 2025-01-10 12:42 | PHA.MEDREC ---
Addendum entered by Zaki Dang 01/10/25 12:47: reviewed Original Note: Pharmacy Consult ? Medication Reconciliation Pharmacy has completed the medication reconciliation.
[2025-01-10] MEDS: Apixaban 5 MG TABLET PO (13:11)
[2025-01-10] MEDS: PHENobarbitaL sodium 130 MG/ML VIAL IM Q3Hx2 226 MG IM ×2 (13:11→16:27)
[2025-01-10] MEDS: Fenofibrate 160 MG TABLET PO (13:29)
[2025-01-10] MEDS: 0.9 % Sodium Chloride Flush 3 ML SYRINGE IVFLUSH (16:26)
--- NOTE | 2025-01-10 19:15 | PC.NURSE ---
this rn assumed care of pt, pt sitting in stretcher eating dinner, no acute distress noted.
--- NOTE | 2025-01-10 20:41 | PC.NURSE ---
pt placed onto hospital bed for comfort, pt changed urostomy bag with own bag. pt at bedside and given recliner for comfort. pt offers no complaints at this time. vss.
[2025-01-11 05:04] LABS: MANUAL DIFF FLAG NO
[2025-01-11 05:11] LABS: Basophils Absolute Auto 0.1 X10*3/uL (0.0-0.2); Basophils Percent Auto 0.4 % (0-2); Eosinophils Absolute Auto 0.2 X10*3/uL (0.0-0.4); Eosinophils Percent Auto 1.2 % (0-4); Hematocrit 39.9 % (42.0-52.0); Hemoglobin 13.2 g/dl (14.0-18.0); Imm Gran Abs Auto 0.06 X10*3/uL (0.00-0.03); Imm Gran Pct Auto 0.4 % (0.0-0.4); Lymphocytes Absolute Auto 0.9 X10*3/uL (1.2-4.9); Lymphocytes Percent Auto 5.8 % (20-40); Mean Corpuscular HGB Conc 33.1 g/dl (31.0-36.0); Mean Corpuscular Hemoglobin 29.6 pg (27.0-33.0); Mean Corpuscular Volume 89.5 fL (80.0-98.0); Mean Platelet Volume 9.5 fL (9.4-12.4); Monocytes Absolute Auto 1.4 X10*3/uL (0.1-1.2); Monocytes Percent Auto 9.1 % (2-11); Neutrophils Absolute Auto 12.6 x10*3/uL (2.0-8.3); Neutrophils Percent Auto 83.1 % (45-73); Platelet Count 272 X10*3/uL (160-400); Red Blood Count 4.46 X10*6/uL (4.60-5.80); Red Cell Distribution Width 15.3 % (11.0-16.0); White Blood Count 15.2 X10*3/uL (4.8-10.8)
[2025-01-11 05:25] LABS: Anion Gap 11 (12-20); Blood Urea Nitrogen 7 mg/dL (9-16); Calcium 8.4 mg/dL (8.4-10.2); Carbon Dioxide 24 mmol/L (22-29); Chloride 103 mmol/L (96-108); Creatinine Clr Calc Pharmacy 105.6; Estimated Glomerular Filt Rate > 60; Glucose Random 102 mg/dL (60-115); Potassium 3.3 mmol/L (3.3-5.1); Sodium 135 mmol/L (135-145)
[2025-01-11 05:26] LABS: Anion Gap 14 (12-20); Blood Urea Nitrogen 7 mg/dL (9-16); Calcium 8.4 mg/dL (8.4-10.2); Carbon Dioxide 22 mmol/L (22-29); Chloride 103 mmol/L (96-108); Estimated Glomerular Filt Rate > 60; Glucose Random 102 mg/dL (60-115); Potassium 3.3 mmol/L (3.3-5.1); Sodium 136 mmol/L (135-145)
[2025-01-11 06:10] VITALS: BP 157/75; PULSE 92; RESP 20; TEMP 37.1; O2SAT 95
--- NOTE | 2025-01-11 07:00 | CA_ITS ---
Transthoracic Echocardiogram Patient (Last, First, Middle): Nathan Monique J Gender: Male Date of : 1950 Age: 74 Procedure Date: 01/11/2025 Procedure Type: Transthoracic Echocardiogram [place] [facility] [place]: 180.34 cm Weight: 99.79 kg BSA: 2.20 m2 Heart Rate: 93 bpm BP: 157 / 75 mmHg Life Skills Coordinator Volunteer: SB Referring MD: Tiara SPENCER Symptoms: New onset aflutter w/RVR Study Quality: Adequate w contrast ECG Rhythm: Frequent ventricular premature beats Conclusions: - 1. Technically limited study despite the use of contrast agent 2. Low normal LV ejection fraction 50-55% 3. Mild aortic stenosis and regurgitation noted 4. At least mildly dilated ascending aorta at 3.9 cm Findings Procedure Information Contrast agent, definity, is being given per protocol without apparent complications. The quality of the study was technically difficult. The study quality is limited by patients body habitus. Left Ventricle Normal left ventricular cavity size. There is normal left ventricular wall thickness. The left ventricular systolic function is low normal. The visually estimated ejection fraction is between 50-55%. Spectral Doppler is indicative of an impaired relaxation filling pattern. E/E prime ratio is between 8 and 15 consistent with indeterminate filling pressures. There is mild septal asymmetric hypertrophy. Right Ventricle The right ventricle was not well visualized. Atria The left atrium is normal in size. Interatrial shunt cannot be excluded. The right atrium was not well visualized. Aortic Valve The aortic valve was not well visualized. There is mild calcification of the aortic valve. There is mild aortic valve stenosis. The peak aortic gradient is 12 mmHg.The mean gradient is 8 mmHg. The aortic valve area is 2.07 cm2. There is mild aortic valve regurgitation. Mitral Valve The mitral valve was not well visualized. There is moderate mitral annular calcification. There is trace mitral valve regurgitation. There is no mitral valve stenosis. Pulmonic Valve The pulmonic valve was not well visualized. Tricuspid Valve The tricuspid valve was not well visualized. Tricuspid regurgitation envelope is inadequate for calculation of right ventricular systolic pressure. Indeterminate right atrial pressure. Great Vessels The aorta was not well visualized. The pulmonary artery was not well visualized. There is mild dilatation of the ascending aorta measuring 3.90 cm. Venous The inferior vena cava was not well visualized. Pericardium/Pleural The pericardium was not well visualized. Prior Study Comparison No prior study available for comparison. Measurements 2D Linear Measurements IVSd: 0.75 0.6-0.9/0.6-1.0 cm LVIDd: 4.94 3.9-5.3/4.2-5.9 cm LVIDd Index: 2.25 2.4-3.2/2.2-3.1 cm/m2 LVIDs: 3.44 2.0-3.6 cm LVPWd: 0.76 0.7-1.1 cm LA Diam: 3.50 2.7-3.8/3.0-4.0 cm LAIDs Index: 1.59 1.5-2.3 cm/m2 LV Mass: 153.69 67-162/88-224 g LV Mass Index: 69.86 43-95/49-115 g/m2 LVOT Diam: 2.20 3.0+(-)1.3 cm 2D Systolic Function EF 4C: 57.10 >55% EF 2C: 44.40 >55% EF BiP: 52.80 >55% Mitral Valve MV Pk E: 0.69 MV PK A: 0.94 MV Decel Time: 107.00 E/A: 0.70 E'Lateral: 6.74 E'Medial: 5.22 E/E' Med: 13.20 E/E' Lat: 10.20 PHT: 31.00 MVA PHT: 7.10 Decel Harney: 6.45 Aortic Valve AoV Pk Al: 1.76 AoV Mn Al: 1.29 AoV VTI: 0.30 AoV Pk Grad: 12.00 Aov Mn Grad: 8.00 BILLY Cont.VTI: 2.07 AI Pk Al: 3.96 AI Harney: 3.27 LVOT LVOT Pk Al: 0.89 LVOT Mn Al: 0.68 LVOT VTI: 0.16 LVOT Pk Grad: 3.00 LVOT Mn Grad: 2.00 LVOT Diam: 2.20 LVOT Area: 3.80 Diastolic Function MV Pk E: 0.69 MV Pk A: 0.94 E/A: 0.70 E'Medial: 5.22 E/E' Med: 13.20 E' Laterial: 6.74 E/E' Lat: 10.20 Right Ventricle TVS' Al: 13.80 Tricuspid Valve RA Press: 15.00 Great Vessels Aorta Sinus of Valsalva: 3.20 2.0-3.5 cm Ao Asc: 3.90 2.1-3.4 cm Pulmonary Valve PV Pk Al: 0.81 Peak PV Grad: 3.00 Updated in Other Vendor System with Status of Final Clark Potts MD electronically signed on 01/11/2025 4:12:36 PM with status of Final
[2025-01-11 08:24] VITALS: BP 139/79; PULSE 90; RESP 24; TEMP 36.9; O2SAT 92
[2025-01-11] MEDS: hydroCHLOROthiazide 25 MG TABLET PO (09:51)
[2025-01-11] MEDS: Spironolactone 25 MG TABLET PO (09:51)
[2025-01-11] MEDS: Apixaban 5 MG TABLET PO ×2 (09:51→20:04)
[2025-01-11] MEDS: Thiamine HCL 100 MG TABLET PO (09:52)
[2025-01-11] MEDS: PHENobarbitaL 30 MG TABLET 60 MG PO ×2 (09:52→20:05)
[2025-01-11] MEDS: Multivitamin TABLET 1 TAB PO (09:52)
[2025-01-11] MEDS: Azithromycin 500 MG in 0.9 % Sodium Chloride 250 ML 125 MG IV (09:52)
[2025-01-11] MEDS: Folic Acid 1 MG TABLET PO (09:52)
[2025-01-11] MEDS: Cyanocobalamin (Vitamin B-12) 1,000 MCG TABLET 1000 MCG PO (09:52)
[2025-01-11 11:06] VITALS: BMI 32.1
--- NOTE | 2025-01-11 11:17 | P.CONCA_ITS ---
History of Present Illness History of Present Illness Date of Service: 01/11/25 Requesting physician: Omar Cote Consult reason: other (Atrial flutter) Chief complaint: New onset aflutter w/RVR Narrative: I was requested to see Nathan in cardiology consultation today due to new onset atrial flutter. He is a pleasant 74-year-old male with prior history of hypertension which has been controlled, daily alcohol use 6-8 beers on a daily basis, came with fever and shows. When he came in the hospital he was shaking but not having any cardiac complaints was noted to have atrial flutter with rapid ventricular response. Subsequently given rate control therapy and he has settled down in his converted back to sinus rhythm. He does not recall ever having prior cardiac history. He said he never had any palpitations yesterday. He feels better right now but still having low-grade temperature. Source of fever is unclear. He denies any alcohol withdrawal symptoms Review of Systems 2 Constitutional: Constitutional: Reports chills, Reports fever(s) and Denies weakness Eyes: Eyes: Denies no additional eye complaints Cardiovascular: Cardiovascular: Denies no additional cardiovascular complaints Respiratory: Respiratory: Denies no additional respiratory complaints Gastrointestinal: Gastrointestinal: Denies no additional gastrointestinal complaints Genitourinary: Genitourinary: Denies no additional male genitourinary complaints Neurologic: Denies system reviewed and no additional complaints, except as documented and Denies weakness PMFSH Past Medical History Medical History Tongue cancer Bladder cancer Alcohol use disorder HTN (hypertension) Surgical History Surgical History H/O prostatectomy Hx of total cystectomy History of bladder surgery (Unknown) Hx of shoulder surgery (Unknown) Hx of shoulder surgery (Unknown) Social History Social History Patient Tobacco Use Status: Never used Tobacco Use of substances other than those prescribed or required for medical reasons: No Advance Directives: No Advance Directives Information Provided: Yes Nutrition Risks: No Nutritional Risk Current occupational status: retired 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 Meds Allergies Allergy/AdvReac Type Severity Reaction Status Date / Time benazepril Allergy Mild Unknown Uncoded 01/10/25 07:15 Active Medications: Current Medications Acetaminophen (Acetaminophen 325 Mg Tablet) 650 mg PO Q6H PRN PRN Reason: Pain, Mild 1-3,fever,headache Apixaban (Apixaban 5 Mg Tablet) 5 mg PO BID [facility] Last Admin: 01/11/25 09:51 Dose: 5 mg Calcium Carbonate (Calcium Carbonate 750 Mg Tab.Chew) 750 mg PO Q4H PRN PRN Reason: Heartburn Ceftriaxone Sodium (Ceftriaxone Sodium 1 Gm Vial) 1 gm IVPUSH Q24H [facility] Cyanocobalamin (Cyanocobalamin (Vitamin B-12) 1,000 Mcg Tablet) 1,000 mcg PO DAILY [facility] Last Admin: 01/11/25 09:52 Dose: 1,000 mcg Fenofibrate (Fenofibrate 160 Mg Tablet) 160 mg PO DAILY [facility] Last Admin: 01/10/25 13:29 Dose: 160 mg Folic Acid (Folic Acid 1 Mg Tablet) 1 mg PO DAILY [facility] Stop: 01/14/25 08:59 Last Admin: 01/11/25 09:52 Dose: 1 mg Hydrochlorothiazide (Hydrochlorothiazide 25 Mg Tablet) 25 mg PO DAILY [facility] Last Admin: 01/11/25 09:51 Dose: 25 mg Azithromycin 500 mg/ Sodium (Chloride) 250 mls @ 125 mls/hr IV Q24H [facility] Last Admin: 01/11/25 09:52 Dose: 125 mls/hr Magnesium Hydroxide (Milk Of Magnesia 30 Ml Oral.Susp) 30 ml PO DAILY PRN PRN Reason: Constipation Melatonin (Melatonin 3 Mg Tablet) 6 mg PO BEDTIME PRN PRN Reason: Insomnia Multivitamins/Vitamin C (Multivitamin Tablet) 1 tab PO DAILY [facility] Stop: 01/14/25 08:59 Last Admin: 01/11/25 09:52 Dose: 1 tab Omeprazole (Omeprazole 20 Mg Capsule.Dr) 20 mg PO Q48H [facility] Last Admin: 01/11/25 06:54 Dose: Not Given Pharmacy Consult (Consult Rx Etoh Phenob Im/Po) 1 each MISCELLANE ONCE PRN; Protocol PRN Reason: Consult order Phenobarbital (Phenobarbital 30 Mg Tablet) 60 mg PO BID [facility]; Protocol Stop: 01/12/25 21:01 Last Admin: 01/11/25 09:52 Dose: 60 mg Phenobarbital (Phenobarbital 30 Mg Tablet) 30 mg PO BID [facility]; Protocol Stop: 01/14/25 21:01 Phenobarbital (Phenobarbital 30 Mg Tablet) 30 mg PO DAILY [facility]; Protocol Stop: 01/16/25 09:01 Sodium Chloride (0.9 % Sodium Chloride Flush 3 Ml Syringe) 3 ml IVFLUSH QSHIFT [facility] Last Admin: 01/11/25 10:01 Dose: Not Given Spironolactone (Spironolactone 25 Mg Tablet) 25 mg PO DAILY [facility] Last Admin: 01/11/25 09:51 Dose: 25 mg Thiamine HCl (Thiamine Hcl 100 Mg Tablet) 100 mg PO DAILY [facility] Stop: 01/14/25 08:59 Last Admin: 01/11/25 09:52 Dose: 100 mg Home Medications ?Medication ?Instructions ?Recorded ?Confirmed ?Last Taken ?Type fenofibrate 160 mg tablet 160 mg PO DAILY 12/25/23 01/10/25 01/09/25 History cyanocobalamin (vitamin B-12) 1,000 mcg PO DAILY 01/10/25 01/10/25 01/09/25 History 1,000 mcg tablet pantoprazole 40 mg tablet,delayed 40 mg PO Q2D@0630 01/10/25 01/10/25 01/09/25 History release (Protonix) riboflavin (vitamin B2) 400 mg 400 mg PO DAILY 01/10/25 01/10/25 01/09/25 History tablet spironolactone 25 1 tab PO DAILY 01/10/25 01/10/25 01/09/25 History mg-hydrochlorothiazide 25 mg tablet thiamine HCl (vitamin B1) 100 mg 100 mg PO DAILY 01/10/25 01/10/25 01/09/25 History tablet Physical Exam 2 Vital Signs: Vital Signs: Last Vital Signs Temp 98.5 F 01/11/25 08:24 Pulse 90 01/11/25 08:24 Resp 24 H 01/11/25 08:24 BP 139/79 01/11/25 08:24 Pulse Ox 92 01/11/25 08:24 O2 Del Method Nasal Cannula 01/11/25 08:24 O2 Flow Rate 1 01/11/25 08:24 BMI result Body Mass Index 30.8 Const: General: cooperative, comfortable, alert and awake Nutritional Appearance: overweight Orientation/consciousness: patient oriented x3 HEENT: Head: Yes normocephalic and Yes atraumatic Neck: Neck: Yes trachea midline, Yes supple and Yes no JVD Resp: Effort & Inspection: decreased respiratory effort Auscultation: clear to auscultation bilaterally Cardio: Jugular venous distension: no JVD Rate: regular rate Rhythm: a bnormal rhythm with ectopic beats Heart sounds: S1 normal heart sound present, S2 normal heart sound present, no click, no gallops and no murmurs GI: Auscultation: normal bowel sounds Skin: General skin exam: no rashes or lesions noted and ecchymosis Neuro: General: patient oriented x3 and no focal motor deficits Extrem: General: Yes no clubbing, cyanosis or edema Objective Labs and Meds 01/11/25 04:25 01/11/25 04:25 Lab results: Laboratory Results - last 24 hr 01/10/25 01/11/25 01/11/25 07:59 04:25 04:25 WBC 15.2 H RBC 4.46 L Hgb 13.2 L Hct 39.9 L MCV 89.5 MCH 29.6 MCHC 33.1 RDW 15.3 Plt Count 272 MPV 9.5 Immature Gran % (Auto) 0.4 Neut % (Auto) 83.1 H Lymph % (Auto) 5.8 L [place] % (Auto) 9.1 Eos % (Auto) 1.2 Baso % (Auto) 0.4 Lymph # (Auto) 0.9 L [place] # (Auto) 1.4 H Eos # (Auto) 0.2 Baso # (Auto) 0.1 Abs Immat Gran (auto) 0.06 H Absolute Neuts (auto) 12.6 H Absolute Nucleated RBC 0.000 Nucleated RBC % (auto) 0.0 Sodium 136 135 Potassium 3.3 Chloride Carbon Dioxide Anion Gap BUN Creatinine Estim Creat Clear Calc Estimated GFR Random Glucose Calcium Procalcitonin 0.03 01/11/25 01/11/25 01/11/25 04:25 04:25 04:25 WBC RBC Hgb Hct MCV MCH MCHC RDW Plt Count MPV Immature Gran % (Auto) Neut % (Auto) Lymph % (Auto) [place] % (Auto) Eos % (Auto) Baso % (Auto) Lymph # (Auto) [place] # (Auto) Eos # (Auto) Baso # (Auto) Abs Immat Gran (auto) Absolute Neuts (auto) Absolute Nucleated RBC Nucleated RBC % (auto) Sodium Potassium 3.3 Chloride 103 103 Carbon Dioxide 22 24 Anion Gap 14 BUN Creatinine Estim Creat Clear Calc Estimated GFR Random Glucose Calcium Procalcitonin 01/11/25 01/11/25 01/11/25 04:25 04:25 04:25 WBC RBC Hgb Hct MCV MCH MCHC RDW Plt Count MPV Immature Gran % (Auto) Neut % (Auto) Lymph % (Auto) [place] % (Auto) Eos % (Auto) Baso % (Auto) Lymph # (Auto) [place] # (Auto) Eos # (Auto) Baso # (Auto) Abs Immat Gran (auto) Absolute Neuts (auto) Absolute Nucleated RBC Nucleated RBC % (auto) Sodium Potassium Chloride Carbon Dioxide Anion Gap 11 L BUN 7 L 7 L Creatinine 0.73 0.74 Estim Creat Clear Calc 107.0 Estimated GFR Random Glucose Calcium Procalcitonin 01/11/25 01/11/25 01/11/25 04:25 04:25 04:25 WBC RBC Hgb Hct MCV MCH MCHC RDW Plt Count MPV Immature Gran % (Auto) Neut % (Auto) Lymph % (Auto) [place] % (Auto) Eos % (Auto) Baso % (Auto) Lymph # (Auto) [place] # (Auto) Eos # (Auto) Baso # (Auto) Abs Immat Gran (auto) Absolute Neuts (auto) Absolute Nucleated RBC Nucleated RBC % (auto) Sodium Potassium Chloride Carbon Dioxide Anion Gap BUN Creatinine Estim Creat Clear Calc 105.6 Estimated GFR > 60 > 60 Random Glucose 102 102 Calcium 8.4 Procalcitonin 01/11/25 04:25 WBC RBC Hgb Hct MCV MCH MCHC RDW Plt Count MPV Immature Gran % (Auto) Neut % (Auto) Lymph % (Auto) [place] % (Auto) Eos % (Auto) Baso % (Auto) Lymph # (Auto) [place] # (Auto) Eos # (Auto) Baso # (Auto) Abs Immat Gran (auto) Absolute Neuts (auto) Absolute Nucleated RBC Nucleated RBC % (auto) Sodium Potassium Chloride Carbon Dioxide Anion Gap BUN Creatinine Estim Creat Clear Calc Estimated GFR Random Glucose Calcium 8.4 Procalcitonin Assessment and Plan (1) New onset atrial flutter: Status: Acute New onset atrial flutter in this elderly gentleman with multiple risk factors but chronic alcohol use with CHADSVASc score of 2. Readily would be treated with oral anticoagulant therapy although given his history of alcohol use on a regular basis as could increase his bleeding risk and complications. This was discussed with him. He is currently not think about giving up his alcohol which he says he enjoys much. He does not have any clear withdrawal symptoms. Discussed with him the risk and benefits. Start Toprol 50 mg to his regimen. He wants to hold off on oral anticoagulation therapy. Avoidance of stimulants was discussed. Will set him up for outpatient follow-up. Will sign of the case. Thank you for allowing me to partake in his care Procedures Date of Service Date of Service: 01/11/25
[2025-01-11] MEDS: Fenofibrate 160 MG TABLET PO (11:35)
[2025-01-11] MEDS: cefTRIAXone sodium 1 GM VIAL IVPUSH (11:39)
[2025-01-11 12:00] VITALS: BP 140/67; PULSE 94; RESP 18; TEMP 36.7; O2SAT 95
--- NOTE | 2025-01-11 12:43 | MHC.CM.PN ---
IMM 01/11/25, EMR REVIEWED, PT W/AFIB W/RVR, NEW AFLUTTER AND ETOH WITHDRAWAL, CM MET W/PT WHO REPORTS HE LIVES W/HIS , IS FULLY INDEP W/CARE, DENIES USE OF DME/SERVICES, PT REPORTS HE WAS IN THE [employer] HOWEVER NEVER ACTIVATED. PT'S GOAL FOR DC IS HOME. PT VERIFIES PCP ON FILE AND REPORTS HIS [facility] [phone] IS HIS HCP, COPY HAS BEEN REQUESTED.
[2025-01-11 12:56] LABS: Adenovirus PCR Not Detected (Not Detect.); Bordetella parapertussis PCR Not Detected (Not Detect.); Bordetella pertussis PCR Not Detected (Not Detect.); Chlamydia pneumoniae PCR Not Detected (Not Detect.); Coronavirus 229E PCR Not Detected (Not Detect.); Coronavirus HKU1 PCR Not Detected (Not Detect.); Coronavirus NL63 PCR Not Detected (Not Detect.); Coronavirus OC43 PCR Not Detected (Not Detect.); Human metapneumovirus PCR Not Detected (Not Detect.); Influenza A PCR Not Detected (Not Detect.); Influenza B PCR Not Detected (Not Detect.); Mycoplasma pneumoniae PCR Not Detected (Not Detect.); Parainfluenza 1 PCR Not Detected (Not Detect.); Parainfluenza 2 PCR Not Detected (Not Detect.); Parainfluenza 3 PCR Not Detected (Not Detect.); Parainfluenza 4 PCR Not Detected (Not Detect.); RSV PCR Not Detected (Not Detect.); Rhino/Enterovirus PCR Not Detected (Not Detect.)
--- NOTE | 2025-01-11 12:57 | P.PNIM_ITS ---
Subjective Subjective Date of Service: 01/11/25 Interval History: seen and evaluated this morning Feels better overall HR in 90s-100s pending Echo no other events Review of Systems Review of Systems: Yes all other systems are reviewed and are negative Physical Exam 2 Vital Signs: Vital Signs: Last Vital Signs Temp 98.1 F 01/11/25 12:00 Pulse 94 01/11/25 12:00 Resp 18 01/11/25 12:00 BP 140/67 H 01/11/25 12:00 Pulse Ox 95 01/11/25 12:00 O2 Del Method Nasal Cannula 01/11/25 12:00 O2 Flow Rate 1 01/11/25 12:00 BMI result Body Mass Index 32.1 Const: Other: Constitutional : Awake, interactive, not in distress Neck : Normal inspection, Supple Cardiovascular : irregular irregular, no JVP, no lower extremity edema Respiratory : good bilateral air entry, no crackles, expiratory wheezes , O2 supplement Gastrointestinal: soft, lax, Normal bowel sounds, Non tender Skin : Warm, Dry Neurological : Alert & oriented x3, No focal deficit Objective Data Active Medications Acetaminophen (Acetaminophen 325 Mg Tablet) 650 mg PO Q6H PRN PRN Reason: Pain, Mild 1-3,fever,headache Apixaban (Apixaban 5 Mg Tablet) 5 mg PO BID [facility] Last Admin: 01/11/25 09:51 Dose: 5 mg Documented By: [place] Calcium Carbonate (Calcium Carbonate 750 Mg Tab.Chew) 750 mg PO Q4H PRN PRN Reason: Heartburn Ceftriaxone Sodium (Ceftriaxone Sodium 1 Gm Vial) 1 gm IVPUSH Q24H [facility] Last Admin: 01/11/25 11:39 Dose: 1 gm Documented By: MIGUEL Cyanocobalamin (Cyanocobalamin (Vitamin B-12) 1,000 Mcg Tablet) 1,000 mcg PO DAILY [facility] Last Admin: 01/11/25 09:52 Dose: 1,000 mcg Documented By: [place] Fenofibrate (Fenofibrate 160 Mg Tablet) 160 mg PO DAILY [facility] Last Admin: 01/11/25 11:35 Dose: 160 mg Documented By: MIGUEL Folic Acid (Folic Acid 1 Mg Tablet) 1 mg PO DAILY [facility] Stop: 01/14/25 08:59 Last Admin: 01/11/25 09:52 Dose: 1 mg Documented By: [place] Hydrochlorothiazide (Hydrochlorothiazide 25 Mg Tablet) 25 mg PO DAILY [facility] Last Admin: 01/11/25 09:51 Dose: 25 mg Documented By: [place] Azithromycin 500 mg/ Sodium (Chloride) 250 mls @ 125 mls/hr IV Q24H [facility] Last Infusion: 01/11/25 12:03 Dose: Infused Documented By: MIGUEL Magnesium Hydroxide (Milk Of Magnesia 30 Ml Oral.Susp) 30 ml PO DAILY PRN PRN Reason: Constipation Melatonin (Melatonin 3 Mg Tablet) 6 mg PO BEDTIME PRN PRN Reason: Insomnia Multivitamins/Vitamin C (Multivitamin Tablet) 1 tab PO DAILY [facility] Stop: 01/14/25 08:59 Last Admin: 01/11/25 09:52 Dose: 1 tab Documented By: [place] Omeprazole (Omeprazole 20 Mg Capsule.Dr) 20 mg PO Q48H [facility] Last Admin: 01/11/25 06:54 Dose: Not Given Documented By: RAQUEL Non-Admin Reason: Patient Refused Pharmacy Consult (Consult Rx Etoh Phenob Im/Po) 1 each MISCELLANE ONCE PRN; Protocol PRN Reason: Consult order Phenobarbital (Phenobarbital 30 Mg Tablet) 60 mg PO BID [facility]; Protocol Stop: 01/12/25 21:01 Last Admin: 01/11/25 09:52 Dose: 60 mg Documented By: [place] Phenobarbital (Phenobarbital 30 Mg Tablet) 30 mg PO BID [facility]; Protocol Stop: 01/14/25 21:01 Phenobarbital (Phenobarbital 30 Mg Tablet) 30 mg PO DAILY [facility]; Protocol Stop: 01/16/25 09:01 Sodium Chloride (0.9 % Sodium Chloride Flush 3 Ml Syringe) [facility] Admin: 01/11/25 10:01 Dose: Not Given Documented By: OH Non-Admin Reason: IV Running Spironolactone (Spironolactone 25 Mg Tablet) 25 mg PO DAILY [facility] Last Admin: 01/11/25 09:51 Dose: 25 mg Documented By: OH Thiamine HCl (Thiamine Hcl 100 Mg Tablet) 100 mg PO DAILY [facility] Stop: 01/14/25 08:59 Last Admin: 01/11/25 09:52 Dose: 100 mg Documented By: OH Labs 01/11/25 04:25 01/11/25 04:25 Labs: Laboratory Results - last 24 hr 01/11/25 01/11/25 01/11/25 04:25 04:25 04:25 MCV 89.5 MCH 29.6 MCHC 33.1 RDW 15.3 Plt Count 272 MPV 9.5 Immature Gran % (Auto) 0.4 Neut % (Auto) 83.1 H Lymph % (Auto) 5.8 L [place] % (Auto) 9.1 Eos % (Auto) 1.2 Baso % (Auto) 0.4 Lymph # (Auto) 0.9 L [place] # (Auto) 1.4 H Eos # (Auto) 0.2 Baso # (Auto) 0.1 Abs Immat Gran (auto) 0.06 H Absolute Neuts (auto) 12.6 H Absolute Nucleated RBC 0.000 Nucleated RBC % (auto) 0.0 Anion Gap 14 11 L Estim Creat Clear Calc 107.0 105.6 Estimated GFR > 60 Random Glucose Calcium 01/11/25 01/11/25 01/11/25 04:25 04:25 04:25 MCV MCH MCHC RDW Plt Count MPV Immature Gran % (Auto) Neut % (Auto) Lymph % (Auto) [place] % (Auto) Eos % (Auto) Baso % (Auto) Lymph # (Auto) [place] # (Auto) Eos # (Auto) Baso # (Auto) Abs Immat Gran (auto) Absolute Neuts (auto) Absolute Nucleated RBC Nucleated RBC % (auto) Anion Gap Estim Creat Clear Calc Estimated GFR > 60 Random Glucose 102 102 Calcium 8.4 8.4 Microbiology Microbiology Results: Microbiology 01/10/25 07:59 Blood Culture - Preliminary Blood - Venous No growth after 24 hours. 01/10/25 07:59 Blood Culture - Preliminary Blood - Venous No growth after 24 hours. Assessment and Plan (1) Atrial flutter with rapid ventricular response: Status: Acute (2) New onset atrial flutter: Status: Acute (3) Bronchitis: Status: Acute (4) Hypomagnesemia: Status: Acute Plan Pt is a 74-year-old male with a PMH significant for?HTN, hx of bladder cancer, s/p prostatectomy and cystectomy with urostomy in place, tongue cancer s/p resection, skin cancer s/p resection, and alcohol dependence who presents to the ED after developing cough and fever overnight. Pt will be admitted to the hospital for treatment and further evaluation of new onset atrial flutter with RVR as well as acute hypoxic respiratory failure in the setting of viral vs bacterial respiratory infection. New onset atrial flutter with RVR Initial EKG showing atrial flutter with variable AV block Echocardiogram pending Cardiology consult appreciated, continue Metoprolol, risk of NOACs with Alcohol, patient hesitant about blood thinner on Eliquis 5 mg p.o. b.i.d. Monitor on telemetry Acute hypoxic respiratory failure 2/2 respiratory infection CXR negative, CTA of chest without consolidative pneumonia, most characteristic of mild bronchitis/bronchiolitis viral vs bacterial empirically ceftriaxone and azithromycin, started 01/10/2025 full respiratory panel pending Alcohol dependence drinking 6-11 beers daily for many years Denies hx of alcohol withdrawal phenobarb protocol Thiamine, folic acid, daily vitamin Addiction medicine consult Monitor on CIWA Hypomagnesemia Replenished in the ED Follow Mag HTN Continue spironolactone, hydrochlorothiazide HLD Continue fenofibrate Hx of bladder cancer Urostomy in place Full Code DVT Prophylaxis: Lovenox Pt will require a hospitalization of at least two nights for treatment of? with atrial fibrillation w RvR, respiratory failure on O2 Quality Stroke Does the patient have a stroke diagnosis?: No VTE Prior VTE?: No VTE Risk Level:: Medical - moderate - high VTE Device Contraindication: Treatment Not Indicated VTE Drug Contraindication: N/A - Med Ordered
[2025-01-11] MEDS: Metoprolol Succinate ER 50 MG TAB.ER.24H PO (13:40)
--- NOTE | 2025-01-11 13:53 | MHC.RECOVRN ---
AUDIT-C Brief Intervention Pt had positive screen for unhealthy alcohol use on admission. Attempted to meet with pt to discuss alcohol use and offer resources, pt declined.
[2025-01-11 13:56] LABS: Influenza A H1 PCR Not Detected (Not Detect.); Influenza A H1-2009 PCR Not Detected (Not Detect.); Influenza A H3 PCR Not Detected (Not Detect.); SARS-CoV-2 PCR Not Detected (Not Detect.)
[2025-01-11 15:50] VITALS: BP 146/64; PULSE 94; RESP 16; TEMP 37.4; O2SAT 97
[2025-01-11 20:40] VITALS: BP 163/72; PULSE 85; RESP 16; TEMP 36.7; O2SAT 96
[2025-01-11] MEDS: 0.9 % Sodium Chloride Flush 3 ML SYRINGE IVFLUSH (23:43)
[2025-01-12] VITALS: BP 134/66; PULSE 73; TEMP 36.9; O2SAT 96
--- NOTE | 2025-01-12 | ECG_ITS ---
Test Reason : a flutter Blood Pressure : */* mmHG Vent. Rate : 78 BPM Atrial Rate : 78 BPM P-R Int : 180 ms QRS Dur : 100 ms QT Int : 384 ms P-R-T Axes : 15 51 31 degrees QTcB Int : 437 ms Sinus rhythm with frequent Premature ventricular complexes Otherwise normal ECG When compared with ECG of 10-Jan-2025 10:17, Premature atrial complexes are no longer Present Referred By: Omar Cote Electronically Signed By: CHARLOTTE GOODWIN MD
[2025-01-12 04:00] VITALS: BP 146/66; PULSE 77; RESP 18; TEMP 36.7; O2SAT 95
[2025-01-12 07:04] VITALS: BP 145/65; PULSE 82; RESP 18; TEMP 37.1; O2SAT 91
[2025-01-12 07:12] LABS: MANUAL DIFF FLAG NO
[2025-01-12 07:26] LABS: Basophils Absolute Auto 0.1 X10*3/uL (0.0-0.2); Basophils Percent Auto 0.5 % (0-2); Eosinophils Absolute Auto 0.3 X10*3/uL (0.0-0.4); Eosinophils Percent Auto 2.5 % (0-4); Hematocrit 42.1 % (42.0-52.0); Hemoglobin 14.2 g/dl (14.0-18.0); Imm Gran Abs Auto 0.06 X10*3/uL (0.00-0.03); Imm Gran Pct Auto 0.5 % (0.0-0.4); Lymphocytes Absolute Auto 1.3 X10*3/uL (1.2-4.9); Lymphocytes Percent Auto 10.7 % (20-40); Mean Corpuscular HGB Conc 33.7 g/dl (31.0-36.0); Mean Corpuscular Hemoglobin 29.9 pg (27.0-33.0); Mean Corpuscular Volume 88.6 fL (80.0-98.0); Mean Platelet Volume 9.3 fL (9.4-12.4); Monocytes Absolute Auto 1.1 X10*3/uL (0.1-1.2); Monocytes Percent Auto 8.9 % (2-11); Neutrophils Absolute Auto 9.6 x10*3/uL (2.0-8.3); Neutrophils Percent Auto 76.9 % (45-73); Platelet Count 332 X10*3/uL (160-400); Red Blood Count 4.75 X10*6/uL (4.60-5.80); Red Cell Distribution Width 15.3 % (11.0-16.0); White Blood Count 12.4 X10*3/uL (4.8-10.8)
[2025-01-12 07:41] LABS: Anion Gap 12 (12-20); Blood Urea Nitrogen 9 mg/dL (9-16); Calcium 8.7 mg/dL (8.4-10.2); Carbon Dioxide 24 mmol/L (22-29); Chloride 102 mmol/L (96-108); Creatinine Clr Calc Pharmacy 102.1; Estimated Glomerular Filt Rate > 60; Glucose Random 95 mg/dL (60-115); Potassium 3.2 mmol/L (3.3-5.1); Sodium 135 mmol/L (135-145)
[2025-01-12] MEDS: Multivitamin TABLET 1 TAB PO (07:45)
[2025-01-12] MEDS: PHENobarbitaL 30 MG TABLET 60 MG PO (07:45)
[2025-01-12] MEDS: Apixaban 5 MG TABLET PO (07:45)
[2025-01-12] MEDS: Folic Acid 1 MG TABLET PO (07:45)
[2025-01-12] MEDS: Fenofibrate 160 MG TABLET PO (07:46)
[2025-01-12] MEDS: hydroCHLOROthiazide 25 MG TABLET PO (07:46)
[2025-01-12] MEDS: Spironolactone 25 MG TABLET PO (07:46)
[2025-01-12] MEDS: Thiamine HCL 100 MG TABLET PO (07:46)
[2025-01-12] MEDS: Cyanocobalamin (Vitamin B-12) 1,000 MCG TABLET 1000 MCG PO (07:46)
[2025-01-12] MEDS: Metoprolol Succinate ER 50 MG TAB.ER.24H PO (07:46)
[2025-01-12] MEDS: 0.9 % Sodium Chloride Flush 3 ML SYRINGE IVFLUSH (07:47)
[2025-01-12 08:07] LABS: Magnesium 2.1 mg/dL (1.6-2.6)
[2025-01-12 09:51] VITALS: BP 145/65; PULSE 82; O2SAT 91
[2025-01-12 11:06] VITALS: BP 146/59; PULSE 75; RESP 18; TEMP 36.9; O2SAT 92
[2025-01-12] MEDS: Azithromycin 500 MG in 0.9 % Sodium Chloride 250 ML 125 MG IV (11:16)
[2025-01-12] MEDS: Potassium Chloride ER 20 MEQ TAB.ER.PRT 40 MEQ PO (11:17)
[2025-01-12] MEDS: cefTRIAXone sodium 1 GM VIAL IVPUSH (11:17)
--- NOTE | 2025-01-12 11:35 | P.DS_ITS ---
DS: Providers Provider Date of Service: 01/12/25 Date of admission: 01/10/25 12:24 Date of discharge: 01/12/25 Primary care physician: Charlotte Reid NP Consults: 01/10/25 12:03 Consult to Cardiology Routine Consulting Provider: [facility] Reason for consultation: New onset aflutter w/RVR 01/10/25 12:43 Addiction Medicine Provider Routine Consulting Provider: Addiction Covering Reason for consultation: Alcohol dependence DS: Diagnosis Discharge Diagnosis (1) Atrial flutter with rapid ventricular response: Status: Acute (2) New onset atrial flutter: Status: Acute (3) Bronchitis: Status: Acute (4) Hypomagnesemia: Status: Acute (5) Alcohol withdrawal: Status: Acute DS: Summary Hospital Course Hospital Course: Admission note HPI Pt is a 74-year-old male with a PMH significant for?HTN, hx of bladder cancer, s/p prostatectomy and cystectomy with urostomy in place, tongue cancer s/p resection, skin cancer s/p resection, and alcohol dependence who presents to the ED after developing cough and fever overnight. Pt reports cough began last night; has been nonproductive. Earlier this morning spiked a fever as high as 103.5. Pt denies any significant SOB or difficulty breathing. No increased fatigue. Denies palpitations. No chest pain/pressure. Denies sick contacts. No lower leg edema. Denies orthopnea. No previous hx palpitations or arrhythmias. Pt reports drinks 6-11 beers every afternoon/evening. Begins drinking at 15:00 until bedtime. Denies hx of alcohol withdrawal. In the ED pt was febrile up to 100.7, tachycardic up to 146, tachypneic up to 24 , hypertensive up to 167/67, and hypoxic at 87% on RA. Labs were significant for leukocytosis of 17.4, lactic acid 2.3 with repeat 1.6, and magnesium 1.5. VBG pH 7.48 with pCO2 31 and bicarb 23. Tested negative for flu, COVID, RSV. CXR without acute findings. Chest CT with IV contrast negative for pneumonia, but with findings most characteristic double mild bronchitis/bronchiolitis. EKG demonstrated atrial flutter with variable AV block and prolonged QTc of 565. Repeat EKG showed sinus rhythm with occasional PVCs and PACs. Pt was treated with acetaminophen, IVF, lorazepam, thiamine IV, metoprolol IV, spironolactone, Mag sulfate, ceftriaxone, azithromycin, and started on phenobarb protocol. Pt will be admitted to the hospital for treatment and further evaluation of new onset atrial flutter with RVR as well as acute hypoxic respiratory failure in the setting of viral vs bacterial respiratory infection. Hospital course The patient was treated for the following: # New onset atrial flutter with RVR Noted on admission with Initial EKG showing atrial flutter with variable AV block. Echocardiogram done showing EF of 50%. Cardiology evaluated the patient and recommended to continue Metoprolol. raised the risk of NOACs with Alcohol consumption. patient hesitant about quitting alcohol. Cardiology suggested to hold on blood thinners at this point and recommended outpatient follow up for cardiac holter monitoring and deciding on blood thinner at that point. # Acute hypoxic respiratory failure 2/2 respiratory infection at time of presentation with CTA of chest characteristic of mild bronchitis/bronchiolitis. NEgative respiratory panel. Treated with ceftriaxone and azithromycin, started 01/10/2025 with fair response as he was weaned off O2. Tolerated PT who recommen ded home PT. to be discharged on 5 more days of Azithromycin and Ceftin. # Alcohol dependence. drinks 6-11 beers daily for many years. Denies hx of alcohol withdrawal. Started on phenobarb protocol along with Thiamine, folic acid, daily vitamin. Addiction medicine consulted but patient refused. He was advised complete abstinence from alcohol but seems very hesitant about doing so. # Hypomagnesemia. Replenished in the ED. To be discharged on PO replacement. Discharge plan We advise you complete abstinence from Alcohol Continue Azithromycin and Ceftin as prescribed for pnemonia Metoprolol 50 mg for heart rate control Magnesium and Thiamin supplement daily Follow up with cardiology as outpatient for monitoring and discussing blood thinners Physical Exam Vital Signs: Vital Signs: Last Vital Signs Temp 98.4 F 01/12/25 11:06 Pulse 75 01/12/25 11:06 Resp 18 01/12/25 11:06 BP 146/59 H 01/12/25 11:06 Pulse Ox 92 01/12/25 11:06 O2 Del Method Room Air 01/12/25 11:06 O2 Flow Rate 1 01/12/25 00:00 BMI result Body Mass Index 32.1 Const: Other: Constitutional : Awake, interactive, not in distress Neck : Normal inspection, Supple Cardiovascular : irregular irregular, no JVP, no lower extremity edema Respiratory : good bilateral air entry, no crackles, expiratory wheezes , O2 supplement Gastrointestinal: soft, lax, Normal bowel sounds, Non tender Skin : Warm, Dry Neurological : Alert & oriented x3, No focal deficit DS: Data Data Completed and Pending Labs on day of discharge: Laboratory Results - last 24 hr 01/10/25 01/12/25 21:37 06:45 WBC 12.4 H RBC 4.75 Hgb 14.2 Hct 42.1 MCV 88.6 MCH 29.9 MCHC 33.7 RDW 15.3 Plt Count 332 MPV 9.3 L Immature Gran % (Auto) 0.5 H Neut % (Auto) 76.9 H Lymph % (Auto) 10.7 L [place] % (Auto) 8.9 Eos % (Auto) 2.5 Baso % (Auto) 0.5 Lymph # (Auto) 1.3 [place] # (Auto) 1.1 Eos # (Auto) 0.3 Baso # (Auto) 0.1 Abs Immat Gran (auto) 0.06 H Absolute Neuts (auto) 9.6 H Absolute Nucleated RBC 0.000 Nucleated RBC % (auto) 0.0 Sodium 135 Potassium 3.2 L Chloride 102 Carbon Dioxide 24 Anion Gap 12 BUN 9 Creatinine 0.78 Estim Creat Clear Calc 102.1 Estimated GFR > 60 Random Glucose 95 Calcium 8.7 Magnesium 2.1 Respiratory Panel Hopper See Note Adenovirus (Rapid PCR) Not Detected B.pert (TEM-PCR) Not Detected B.parapertussis DNA PCR Not Detected C. pneumoniae DNA (PCR) Not Detected Coronavirus OC43 (PCR) Not Detected Coronavirus HKU1 (PCR) Not Detected Coronavirus 229E (PCR) Not Detected Coronavirus NL63 (PCR) Not Detected Human Metapneumovir PCR Not Detected Influenza A (RT-PCR) Not Detected Influenza A (H1) PCR Not Detected Influ A (H1/09) PCR Not Detected Influenza A (H3) PCR Not Detected Influenza B (RT-PCR) Not Detected M. pneumoniae (PCR) Not Detected Parainfluenza 1 (PCR) Not Detected Parainfluenza 2 (PCR) Not Detected Parainfluenza 3 (PCR) Not Detected Parainfluenza 4 (PCR) Not Detected RSV (PCR) Not Detected Entero/Rhino (PCR) Not Detected SARS-CoV-2 RNA (RT-PCR) Not Detected Preliminary micro results at discharge 01/10/25 07:59 Blood Culture - Preliminary Blood - Venous No growth after 48 hours. 01/10/25 07:59 Blood Culture - Preliminary Blood - Venous No growth after [address] scan - chest: Radiologist's impression: CT chest Impression: Findings most characteristic of mild bronchitis/bronchiolitis. No consolidative pneumonia. This document has been electronically signed by: Leander Rosado MD on 01/10/2025 10:30:04 Discharge Plan Discharge Anticipated Discharge Date/Time: 01/12/25 11:09 Patient Disposition: Home Health Service Discharge Diagnosis: New onset Atrial flutter Alcohol abuse Low Magnesium level Referrals: [facility] [Outside] - 1 Week Charlotte Reid NP [Primary Care Provider] - 1 Week Discharge Medications: New metoprolol succinate 50 mg Tablet Extended Release 24 Hr 50 mg PO DAILY Qty: 90 0RF Protocol: Hold for SBP/HR < HOLD for SBP < : 90 HOLD for HR < : 60 thiamine mononitrate (vit B1) 100 mg Tablet 100 mg PO DAILY Qty: 90 0RF magnesium oxide 400 mg magnesium capsule 400 mg PO DAILY Qty: 90 0RF azithromycin 500 mg tablet 500 mg PO DAILY 5 Days Qty: 5 0RF cefuroxime axetil 500 mg tablet 500 mg PO BID Qty: 10 0RF Continued spironolacton-hydrochlorothiaz 25-25 mg tablet 1 tab PO DAILY cyanocobalamin (vitamin B-12) 1,000 mcg Tablet 1,000 mcg PO DAILY thiamine HCl (vitamin B1) 100 mg Tablet 100 mg PO DAILY pantoprazole [Protonix] 40 mg Tablet,Delayed Release (Dr/Ec) 40 mg PO Q2D@0630 riboflavin (vitamin B2) 400 mg Tablet 400 mg PO DAILY fenofibrate 160 mg tablet 160 mg PO DAILY Discharge Orders: Discharge Order (Routine); Ordered 01/12/25 Ordered By: Omar Cote Diet: Low salt diet Activity on Discharge: As tolerated Stand Alone Forms: Patient Portal Discharge page Print Language: Greenlandic Care Plan Goals: We advise you complete abstinence from Alcohol Continue Azithromycin and Ceftin as prescribed for pnemonia Metoprolol 50 mg for heart rate control Magnesium and Thiamin supplement daily Follow up with cardiology as outpatient for monitoring and discussing blood thinners Health Concerns: Newly diagnosed atrial flutter Pneumonia Alcohol abuse Plan of Treatment: Metoprolol Antibiotics Cardiology follow up Assessment: as above
--- NOTE | 2025-01-12 11:41 | W.MHC.F2F ---
Service Date Service Date: 01/12/25 Encounter Date of encounter: 01/12/25 Reasons for Services Signs and symptoms assessed: New Atrial flutter Physical deconditioning Reason for intermediate: teach disease management and other (Alcohol abuse counseling ) Reason for physical therapy: home safety and mobility and therapeutic exercises Homebound: Leaving the home is medically contraindicated at this time without the asist of a device and/or another person due th the listed conditions above and below. Reason homebound: unsteady gait / fall risk Certification: Based on the above findings, I certify that this patient is confined to the home and needs intermittent intermediate care, physical therapy and/or speech therapy, or continues to need occupational therapy. The patient is under my care, and I have initiated the establishment of the plan of care. The patient will be followed by a physician who will periodically review the plan of care. Time Spent With Patient Time: Total time managing care of this patient today ____ minutes.
--- NOTE | 2025-01-12 12:54 | MHC.CM.PN ---
PT TO BE MEDICALLY CLEARED FOR DC HOME W/NEW COMFORT PLUS [facility] FOR SN/PT, PT'S [facility] AT BEDSIDE AND WILL TRANSPORT.
== END 2025-01-12 14:15 | disposition home health service (06) | DRG 308 ==
LOC: HO.ED 11:57 → HO.EDOVER 12:25 → HO.IMC 01-11 07:54
PROVIDERS: Physician Assistant Medical; Admitting Provider Student in an Organized Health Care Education/Training Program; Emergency Provider Emergency Medicine; PCP Nurse Practitioner Family; Visit Provider Student in an Organized Health Care Education/Training Program
DX: I48.92 Unspecified atrial flutter (principal); J96.01 Acute respiratory failure with hypoxia; F10.239 Alcohol dependence with withdrawal, unspecified; J40 Bronchitis, not specified as acute or chronic; E83.42 Hypomagnesemia; I10 Essential (primary) hypertension; E78.5 Hyperlipidemia, unspecified; Z20.822 Contact with and (suspected) exposure to COVID-19; Z71.41 Alcohol abuse counseling and surveillance of alcoholic; Z93.6 Other artificial openings of urinary tract status; Z85.51 Personal history of malignant neoplasm of bladder; Z79.899 Other long term (current) drug therapy
CPT/HCPCS: 0241U; 36415; 71046; 71260; 80048; 80053; 82607; 82746; 82803; 83605; 83735; 84145; 84484; 85025; 87040; 87633; 93005; 93306; 97162; 99285; J0456; J0696; J2060; J2560; J3411; J3475; Q9957; Q9967

== ENCOUNTER → 2025-01-10 07:18 | Outpatient (BNV) | payer MEDICARE, SELFPAY | PROVIDERS: Emergency Provider Emergency Medicine; PCP Nurse Practitioner Family; Visit Provider Specialist | DX: R05.9 Cough, unspecified (principal); R06.02 Shortness of breath; R50.9 Fever, unspecified | CPT/HCPCS: 71046 ==

== ENCOUNTER → 2025-01-10 07:20 | Outpatient (BNV) | payer MEDICARE, SELFPAY | PROVIDERS: Admitting Provider Student in an Organized Health Care Education/Training Program; Emergency Provider Emergency Medicine; PCP Nurse Practitioner Family; Visit Provider Internal Medicine Cardiovascular Disease | DX: I49.3 Ventricular premature depolarization (principal); R00.0 Tachycardia, unspecified; R94.31 Abnormal electrocardiogram [ECG] [EKG] | CPT/HCPCS: 93010 ==

== ENCOUNTER 2025-01-10 12:24 | Outpatient (BNV) | payer MEDICARE, SELFPAY | END 2025-01-11 07:00 | PROVIDERS: Admitting Provider Student in an Organized Health Care Education/Training Program; Emergency Provider Emergency Medicine; PCP Nurse Practitioner Family; Visit Provider Internal Medicine Cardiovascular Disease | DX: I42.2 Other hypertrophic cardiomyopathy (principal); I35.2 Nonrheumatic aortic (valve) stenosis with insufficiency; I35.8 Other nonrheumatic aortic valve disorders; I34.81 Nonrheumatic mitral (valve) annulus calcification | CPT/HCPCS: 93306 ==

== ENCOUNTER 2025-01-10 12:24 | Outpatient (BNV) | payer MEDICARE, SELFPAY | END 2025-01-12 12:14 | PROVIDERS: Admitting Provider Student in an Organized Health Care Education/Training Program; Emergency Provider Emergency Medicine; PCP Nurse Practitioner Family; Visit Provider Internal Medicine Cardiovascular Disease | DX: I48.92 Unspecified atrial flutter (principal) | CPT/HCPCS: 93010 ==

== ENCOUNTER → 2025-01-10 12:24 | Outpatient (BNV) | payer MEDICARE, SELFPAY | PROVIDERS: Admitting Provider Student in an Organized Health Care Education/Training Program; Emergency Provider Emergency Medicine; PCP Nurse Practitioner Family; Visit Provider Student in an Organized Health Care Education/Training Program | DX: I48.92 Unspecified atrial flutter (principal); J40 Bronchitis, not specified as acute or chronic; E83.42 Hypomagnesemia | CPT/HCPCS: 99223; 99233 ==

== ENCOUNTER → 2025-01-10 12:24 | Outpatient (BNV) | payer MEDICARE, SELFPAY | PROVIDERS: Admitting Provider Student in an Organized Health Care Education/Training Program; Emergency Provider Emergency Medicine; PCP Nurse Practitioner Family; Visit Provider Internal Medicine Cardiovascular Disease | DX: I48.92 Unspecified atrial flutter (principal) | CPT/HCPCS: 99222 ==

== ENCOUNTER 2025-01-19 03:38 | Inpatient (IN) | payer MEDICARE, SELFPAY ==
[2025-01-19] VITALS (14 sets, daily range): BP systolic 131–151; BP diastolic 55–78; PULSE 65–114; RESP 16–24; TEMP 36.3–39.2; O2SAT 83–97; BMI 27.1; BMI 30.1
--- NOTE | 2025-01-19 | ECG_ITS ---
Test Reason : TACHY Blood Pressure : */* mmHG Vent. Rate : 102 BPM Atrial Rate : 102 BPM P-R Int : 200 ms QRS Dur : 110 ms QT Int : 384 ms P-R-T Axes : 108 53 27 degrees QTcB Int : 500 ms Sinus tachycardia with Premature atrial complexes Otherwise normal ECG When compared with ECG of 12-Jan-2025 12:14, Premature ventricular complexes are no longer Present Premature atrial complexes are now Present QT has lengthened Referred By: Carol Ann Little Electronically Signed By: YOGI SHAFFER
--- NOTE | ~2025-01-19 | XR_ITS ---
CLINICAL HISTORY: sob 1 view chest x-ray Comparison: CR - XR CHEST 2V - 01/10/25 07:25 EDT Findings: Mild basilar subsegmental atelectasis or infiltrates. Heart size is normal. No acute fracture. IMPRESSION: Mild basilar subsegmental atelectasis or infiltrates. This document has been electronically signed by: Onesimo Price MD, PHD on 01/19/2025 04:34:03
--- NOTE | ~2025-01-19 | CT_ITS ---
EXAMINATION: CT CHEST WITHOUT IV CONTRAST INDICATION: pneumonia COMPARISON: There is an is made with the prior examination dated 01/10/2025. TECHNIQUE: Helical CT scan of the chest was performed without intravenous contrast. Coronal and sagittal reformatted images were generated and reviewed. This CT exam was performed with one or more of the following dose reduction techniques: automated exposure control, adjustment of the mA and/or kV according to patient size, use of iterative reconstruction technique. DLP: 346 mGy-cm CHEST: THYROID: The thyroid is unremarkable. LUNGS: There has been progression of previously seen interstitial and groundglass opacities in the right lower lobe compatible with pneumonia. There is dependent atelectasis at the left lung base. MEDIASTINUM: Again seen are paratracheal lymph nodes measuring up to 1.3 cm in size. ROYCE: Evaluation of the hilar regions is limited by lack of intravenous contrast material. CARDIOVASCULATURE: The heart is normal in size. There is no pericardial effusion. The thoracic aorta is normal in caliber. DEGREE OF CORONARY CALCIFICATION: mild PLEURA: There is no pleural effusion. No pneumothorax. MAIN AIRWAYS: The mainstem bronchi and proximal branches are patent. AXILLA: There is no axillary lymphadenopathy. BONES AND SOFT TISSUES: There is degenerative disc disease of the spine. UPPER ABDOMEN: The visualized portions of the liver, spleen, and adrenals have an unremarkable unenhanced appearance. CT/CT chest wo IV con IMPRESSION: Progression of interstitial and groundglass opacities in the right lower lobe consistent with pneumonia. Electronically signed by: Delfin Guerrero MD 01/19/2025 09:37 AM EDT
--- NOTE | 2025-01-19 03:56 | ED_ITS ---
HPI - SOB/Dyspnea General Chief Complaint: Dyspnea Stated Complaint: SOB Time Seen by Provider: 01/19/25 03:56 Source: patient and family Mode of arrival: ambulatory Limitations: no limitations History of Present Illness HPI Narrative: 74-year-old male with a PMH significant for?HTN, hx of bladder cancer, s/p prostatectomy and cystectomy with urostomy in place, tongue cancer s/p resection, skin cancer s/p resection, and alcohol dependence who presents to the ED just admitted and discharged on 01/12 for alcohol abuse and newly diagnose atrial flutter comes back as he was feeling increased shortness a breath just prior to arrival saturating 80s in room air no chest pain patient is still coughing last alcohol drink was about 3 days ago denies any palpitation Related Data Home Medications ?Medication ?Instructions ?Recorded ?Confirmed fenofibrate 160 mg tablet 160 mg PO DAILY 12/25/23 01/10/25 cyanocobalamin (vitamin B-12) 1,000 mcg PO DAILY 01/10/25 01/10/25 1,000 mcg tablet pantoprazole 40 mg tablet,delayed 40 mg PO Q2D@0630 01/10/25 01/10/25 release (Protonix) riboflavin (vitamin B2) 400 mg 400 mg PO DAILY 01/10/25 01/10/25 tablet spironolactone 25 1 tab PO DAILY 01/10/25 01/10/25 mg-hydrochlorothiazide 25 mg tablet thiamine HCl (vitamin B1) 100 mg 100 mg PO DAILY 01/10/25 01/10/25 tablet Previous Rx's ?Medication ?Instructions ?Recorded azithromycin 500 mg tablet 500 mg PO DAILY 5 days #5 tabs 01/12/25 cefuroxime axetil 500 mg tablet 500 mg PO BID #10 tabs 01/12/25 magnesium oxide 400 mg PO DAILY #90 caps 01/12/25 metoprolol succinate 50 mg 50 mg PO DAILY #90 tabs 01/12/25 tablet,extended release 24 hr thiamine mononitrate (vit B1) 100 100 mg PO DAILY #90 tabs 01/12/25 mg tablet Allergies Allergy/AdvReac Type Severity Reaction Status Date / Time benazepril Allergy Mild Unknown Uncoded 01/19/25 03:53 Review of Systems 2 Review of Systems: Yes all other systems are reviewed and are negative PMFSH Past Medical History Medical History Tongue cancer Bladder cancer Alcohol use disorder HTN (hypertension) Surgical History H/O prostatectomy Hx of total cystectomy History of bladder surgery (Unknown) Hx of shoulder surgery (Unknown) Hx of shoulder surgery (Unknown) Social History Social History Household Members: Spouse Housing: House Do you presently have visiting nurse or other home services: No Alcohol intake: former Patient Tobacco Use Status: Never used Tobacco Smoked in Last 30 Days: No e-Cigarette/Vaping Use: Never Used Second Hand Smoke Exposure: No Use of substances other than those prescribed or required for medical reasons: No Advance Directives: No Advance Directives Information Provided: Yes Do you have a plan to hurt others: No Plan service: No Current occupational status: retired 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 Physical Exam 2 Vital Signs: Vital Signs: Last Vital Signs Temp 98.9 F 01/19/25 06:27 Pulse 108 H 01/19/25 06:27 Resp 20 01/19/25 06:27 BP 141/55 H 01/19/25 06:27 Pulse Ox 94 01/19/25 06:27 O2 Del Method Nasal Cannula 01/19/25 06:27 O2 Flow Rate 6 01/19/25 06:27 BMI result Body Mass Index 27.1 Appearance: Alert. Oriented X3. In moderate distress Eyes: PERRLA, No Nystagmus ENT: Pharynx normal. Oral Mucosa moist Neck: Normal inspection. Neck supple. CVS: Normal heart rate and rhythm. Pulses normal. Respiratory: No respiratory distress. Equal air entry bilateral, bilateral wheezing Abdomen: Soft and nontender. Bowel sounds are present, no mass palpable, no CVA tenderness Skin: Skin warm and dry. Normal skin color. Normal skin turgor. Extremities: No lower extremity edema. No calf tenderness Neuro: Oriented X 3. No motor deficit. No sensory deficit.No cerebellar signs , cranial nerves II-XII intact Medications Administered Generic Name Dose Route Start Last Admin Trade Name Freq PRN Reason Stop Dose Admin Magnesium Sulfate 2 gm in 50 mls @ 25 mls/hr 01/19/25 06:08 01/19/25 06:36 Magnesium Sulfate/H2o IV 01/19/25 08:07 25 mls/hr ONCE ONE Administration Vancomycin HCl 2,000 mg in 500 mls @ 250 mls/hr 01/19/25 06:08 01/19/25 06:23 Vancomycin/Ns IV 01/19/25 08:07 250 mls/hr ONCE ONE Administration Discontinued Medications Generic Name Dose Route Start Last Admin Trade Name Freq PRN Reason Stop Dose Admin Acetaminophen 650 mg 01/19/25 04:25 01/19/25 05:01 Acetaminophen 325 Mg Tablet PO 01/19/25 04:26 650 mg ONCE ONE Administration Albuterol Sulfate 2.5 mg/ 0 mg 01/19/25 03:57 01/19/25 04:05 Albuterol/Ipratropium 3 ml INHALE 01/19/25 03:58 1 dose ONCE ONE Administration Piperacillin Sod/Tazobactam 50 mls @ 100 mls/hr 01/19/25 05:02 01/19/25 05:57 Sod 3.375 gm/ Sodium Chloride IV 01/19/25 05:31 Infused ONCE ONE Infusion Sodium Chloride 1,000 mls @ 999 mls/hr 01/19/25 05:35 01/19/25 06:18 Ns IV 01/19/25 06:35 Infused .Q1H1M ONE Infusion Vancomycin HCl 1,000 mg/ 535 mls @ 267.5 mls/hr 01/19/25 05:58 01/19/25 06:09 Vancomycin HCl 750 mg/ Sodium IV 01/19/25 07:57 Not Given Chloride ONCE ONE Methylprednisolone Sodium Succinate 125 mg 01/19/25 04:00 01/19/25 04:14 Methylprednisolone Sod Succ 125 Mg/2 Ml Vial IVPUSH 01/19/25 04:01 125 mg ONCE ONE Administration Medical Decision Making Medical Decision Making MDM Narrative: 74-year-old male with a PMH significant for?HTN, hx of bladder cancer, s/p prostatectomy and cystectomy with urostomy in place, tongue cancer s/p resection, skin cancer s/p resection, and alcohol dependence was admitted and discharged on 01/12 for new onset atrial flutter with RVR acute hypoxic respiratory failure you do respiratory infection bronchitis/bronchiolitis CTA chest and blood cultures were negative respiratory panel was also negative on antibiotic azithromycin and Ceftin comes back again with shortness of breath saturating 87% at room air chest x-ray showed bilateral basal atelectasis/infiltrate lab workup shows significant leukocytosis of 24,000 Differential Diagnosis Differential Diagnoses: The differential diagnosis associated with the presentation includes Admission/Observation Consideration of admission/observation: Escalation of care including admission/observation considered Consult Healthcare Provider Management of the patient was discussed with: Hospitalist Lab Data MDM Lab Attestation statement: I reviewed the patient's lab results. 01/19/25 04:11 01/19/25 04:11 Labs: Lab Results 01/19/25 01/19/25 01/19/25 Range/Units 04:11 04:14 05:19 WBC 24.2 H (4.8-10.8) X10*3/uL RBC 4.62 (4.60-5.80) X10*6/uL Hgb 13.6 L (14.0-18.0) g/dl Hct 40.3 L (42.0-52.0) % MCV 87.2 (80.0-98.0) fL MCH 29.4 (27.0-33.0) pg MCHC 33.7 (31.0-36.0) g/dl RDW 15.2 (11.0-16.0) % Plt Count 428 H D (160-400) X10*3/uL MPV 9.2 L (9.4-12.4) fL Immature Gran % (Auto) 0.8 H (0.0-0.4) % Neut % (Auto) 93.3 H (45-73) % Lymph % (Auto) 2.1 L (20-40) % [place] % (Auto) 3.1 (2-11) % Eos % (Auto) 0.3 (0-4) % Baso % (Auto) 0.4 (0-2) % Lymph # (Auto) 0.5 L (1.2-4.9) X10*3/uL [place] # (Auto) 0.8 (0.1-1.2) X10*3/uL Eos # (Auto) 0.1 (0.0-0.4) X10*3/uL Baso # (Auto) 0.1 (0.0-0.2) X10*3/uL Abs Immat Gran (auto) 0.20 H (0.00-0.03) X10*3/uL Absolute Neuts (auto) 22.5 H (2.0-8.3) x10*3/uL Absolute Nucleated RBC 0.000 (0.0-0.012) X10*3/uL Nucleated RBC % (auto) 0.0 (0.0-0.2) /100WBC Smear Tech's Comments VERIFIED PT 13.0 H (10.9-12.4) SEC INR 1.1 (0.9-1.1) VBG pH 7.47 H (7.32-7.43) VBG pCO2 28 mmHg VBG pO2 68 mmHg VBG HCO3 21 L (22-26) mmol/L VBG O2 Saturation 92.0 % VBG Base Excess -1.0 mmol/L Sodium 135 (135-145) mmol/L Potassium 3.5 (3.3-5.1) mmol/L Chloride 102 (96-108) mmol/L Carbon Dioxide 19 L (22-29) mmol/L Anion Gap 18 (12-20) BUN 10 (9-16) mg/dL Creatinine 0.84 (0.5-1.4) mg/dL Estim Creat Clear Calc 84.6 Estimated GFR > 60 Random Glucose 128 H (60-115) mg/dL Lactic Acid 1.7 (0.5-2.0) mmol/L Calcium 8.6 (8.4-10.2) mg/dL Magnesium 1.7 (1.6-2.6) mg/dL Total Bilirubin 0.5 (0.0-1.0) mg/dL AST 19 (5-37) U/L ALT < 6 (0-40) U/L Alkaline Phosphatase 55 (39-117) U/L Troponin I High Sens 9.1 (<3.5-35.0) ng/L B-Natriuretic Peptide 182 H (<100) pg/mL Total Protein 6.9 (6.5-8.0) g/dL Albumin 3.3 L (3.5-5.0) g/dL Influenza Type A (PCR) NEGATIVE (Negative) Influenza Type B (PCR) NEGATIVE (Negative) RSV RNA Qual (PCR) NEGATIVE (Negative) SARS-CoV-2 RNA (RT-PCR) NEGATIVE (Negative) Discharge Plan Discharge Clinical Impression: Acute exacerbation of chronic obstructive airways disease, Acute hypoxic respiratory failure Patient Disposition: Admitted As Inpatient
[2025-01-19] MEDS: Albuterol Sulfate 2.5 MG, Albuterol/Iprat 2.5/0.5MG 3 ML 3 ML INHALE (04:05)
[2025-01-19] MEDS: methylPREDNISolone Sod Succ 125 MG/2 ML VIAL IVPUSH (04:14)
[2025-01-19 04:15] LABS: Venous Blood Gas Refer to POC result
[2025-01-19 04:16] LABS: Basophils Absolute Auto 0.1 X10*3/uL (0.0-0.2); Basophils Percent Auto 0.4 % (0-2); Eosinophils Absolute Auto 0.1 X10*3/uL (0.0-0.4); Eosinophils Percent Auto 0.3 % (0-4); Hematocrit 40.3 % (42.0-52.0); Hemoglobin 13.6 g/dl (14.0-18.0); Imm Gran Pct Auto 0.8 % (0.0-0.4); Lymphocytes Absolute Auto 0.5 X10*3/uL (1.2-4.9); Lymphocytes Percent Auto 2.1 % (20-40); Mean Corpuscular HGB Conc 33.7 g/dl (31.0-36.0); Mean Corpuscular Hemoglobin 29.4 pg (27.0-33.0); Mean Corpuscular Volume 87.2 fL (80.0-98.0); Mean Platelet Volume 9.2 fL (9.4-12.4); Monocytes Absolute Auto 0.8 X10*3/uL (0.1-1.2); Monocytes Percent Auto 3.1 % (2-11); Neutrophils Absolute Auto 22.5 x10*3/uL (2.0-8.3); Neutrophils Percent Auto 93.3 % (45-73); Platelet Count 428 X10*3/uL (160-400); Red Blood Count 4.62 X10*6/uL (4.60-5.80); Red Cell Distribution Width 15.2 % (11.0-16.0); SCAN SMEAR FLAG 1; White Blood Count 24.2 X10*3/uL (4.8-10.8)
[2025-01-19 04:19] LABS: MANUAL DIFF FLAG SCAN
[2025-01-19 04:22] LABS: INTERNATIONAL NORM RATIO 1.1 (0.9-1.1)
[2025-01-19 04:23] LABS: VBG HCO3 21 mmol/L (22-26); VBG pCO2 28 mmHg; VBG pH 7.47 (7.32-7.43); VBG pO2 68 mmHg
--- NOTE | 2025-01-19 04:29 | PC.NURSE ---
Patient broought to ED from triage for reporting worsening sob. Patient states he was admitted to [facility] for similar symptoms and was treated for bronchitis. Patient reports runny nose, productive cough. He denies copd/asthma. SPO2 83% RA, patient brought to ED in a w/c on O2 at 3 LPM NC Saturating 87%. O2 flow increased to 6 LPM NC with improvement, O2 Sat 90-91%. RT at bedside, neb treatment administered. patient changed into a hospital attire, 20 G IV line established in R forearm, labs drawn, patient swabbed for SARS/COVID/RSV, specimens sent sent to a lab fpr processing, patient placed on cardiac rn, sinus tachy hr 110-113, oral temp 102.6, Dr. Sheldon notified. Patient medicated per DEC. Patient currently resting in a stretcher bed, not in acute distress, patient's spouse at bedside, call cook i patient's reach.
[2025-01-19 04:34] LABS: SLIDE REVIEW VERIFIED
[2025-01-19 04:38] LABS: B Type Natriuretic Peptide 182 pg/mL (<100); Troponin-I High Sensitivity 9.1 ng/L (<3.5-35.0)
[2025-01-19 04:39] LABS: Alanine Aminotransferase < 6 U/L (0-40); Albumin Level 3.3 g/dL (3.5-5.0); Alkaline Phosphatase 55 U/L (39-117); Anion Gap 18 (12-20); Aspartate Amino Transferase 19 U/L (5-37); Bilirubin Total 0.5 mg/dL (0.0-1.0); Blood Urea Nitrogen 10 mg/dL (9-16); Calcium 8.6 mg/dL (8.4-10.2); Carbon Dioxide 19 mmol/L (22-29); Chloride 102 mmol/L (96-108); Creatinine Clr Calc Pharmacy 84.6; Estimated Glomerular Filt Rate > 60; Glucose Random 128 mg/dL (60-115); Magnesium 1.7 mg/dL (1.6-2.6); Potassium 3.5 mmol/L (3.3-5.1); Sodium 135 mmol/L (135-145); Total Protein 6.9 g/dL (6.5-8.0)
[2025-01-19 04:53] LABS: Influenza A PCR NEGATIVE (Negative); Influenza B PCR NEGATIVE (Negative); Resp Syncy Virus RNA Qual PCR NEGATIVE (Negative); SARS COV2 PCR INHOUSE NEGATIVE (Negative)
[2025-01-19] MEDS: Acetaminophen 325 MG TABLET 650 MG PO (05:01)
--- NOTE | 2025-01-19 05:20 | MHC.EDTECH ---
Sepsis alert called @0515, blood cultures/lactic drawn and sent to lab, EKG taken per order and signed by provider, vitals taken, temp is 100.9 orally,RN aware
[2025-01-19] MEDS: Piperacillin Sodium/Tazobactam 3.375 GM in 0.9 % Sodium Chloride 50 ML IV ×3 (05:27→20:53)
[2025-01-19] MEDS: 0.9 % Sodium Chloride 1,000 ML 999 ML IV (05:38)
[2025-01-19 05:42] LABS: Lactic Acid 1.7 mmol/L (0.5-2.0)
--- NOTE | 2025-01-19 06:02 | PM.IMHP ---
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 Patient was recently discharged on January 12 with a diagnosis of bronchiolitis and a flutter. Patient presents today with acute hypoxic respiratory failure requiring 6 L nasal cannula, all viral studies are currently negative. Chest x-ray notes suspected lower lobe pneumonia versus atelectasis. lung sounds greatly diminished left greater than right. Patient has a white count of 17 and was not on a prednisone taper upon discharge. Temp was over 102 on arrival. Blood cultures x2 were collected prior to starting Zosyn per emergency room provider. Lactic acid 1.7. BNP 182. Patient had echo with last admission noting EF of 50-55% and mild aortic stenosis and regurgitation with an ascending aortic diameter of 3.9. Patient tachycardic when seen in the emergency room with intermittent a flutter. EKG obtained noting sinus tachycardia, Premature atrial contractions with no ischemic changes. QTC 500. magnesium 1.7. 2 g IV magnesium ordered x1. Ostomy site stoma appears a healthy pink color. Patient changes ostomy bag every 3 days. ETOH: Patient states his last beer was proximally 4 days prior. Per patient's spouse, patient has used alcohol on a daily basis for at least 30-40 years. Patient sees GI for history of Herrera's esophagus, GERD and is known to have fatty liver. Patient's liver function currently is within normal limits. Patient extremely restless, diaphoretic. Reviewed plan of care with attending and we are starting phenobarbital for CIWA and alcohol withdrawal. Review of Systems Review of Systems: Patient currently denies any chest pain, shortness of breath at rest, nausea, vomiting, diarrhea, constipation. Patient states legs are restless and per spouse patient is feeling anxious. Patient denies any headaches, visual changes, abdominal pain. Patient did ask and inquired since he has not had a beer in approximately 4 days with this have led to a decrease in urine output and a darker tone to urine? Yes all other systems are reviewed and are negative FORMERLY [facility], [facility]1983 Medical History Tongue cancer Bladder cancer Alcohol use disorder HTN (hypertension) Cognitive capacity: alert and verbal, anxious Functional capacity: independent ambulation Pertinent family history: Mother and father are but pt does not know why they passed, both in their 80s Surgical History H/O prostatectomy Hx of total cystectomy History of bladder surgery (Unknown) Hx of shoulder surgery (Unknown) Hx of shoulder surgery (Unknown) Social History Household Members: Spouse Housing: House Do you presently have visiting nurse or other home services: No Alcohol intake: former Patient Tobacco Use Status: Never used Tobacco e-Cigarette/Vaping Use: Never Used Second Hand Smoke Exposure: No service: No Current occupational status: retired 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 Ebola Risk: Travel/Contact With Anyone From Affected Area/s: No Has Patient Experienced Ebola Symptoms: No Meds Allergies Allergy/AdvReac Type Severity Reaction Status Date / Time benazepril Allergy Mild Unknown Uncoded 01/19/25 03:53 Active Medications: Current Medications Acetaminophen (Acetaminophen 325 Mg Tablet) 650 mg PO Q6H PRN PRN Reason: Pain, Mild 1-3,fever,headache Albuterol/Ipratropium (Albuterol/Iprat 2.5/0.5mg 3 Ml Ampul.Neb) 3 ml INHALE Q4H PRN PRN Reason: Shortness of Breath/Wheezing Calcium Carbonate (Calcium Carbonate 750 Mg Tab.Chew) 750 mg PO Q4H PRN PRN Reason: Heartburn Sodium Chloride (Ns) 1,000 mls @ 999 mls/hr IV .Q1H1M ONE Stop: 01/19/25 06:35 Last Admin: 01/19/25 05:38 Dose: 999 mls/hr Vancomycin HCl 1,000 mg/Vancomycin HCl 750 mg/ Sodium Chloride 535 mls @ 267.5 mls/hr IV ONCE ONE Stop: 01/19/25 07:57 Ibuprofen (Ibuprofen 400 Mg Tablet) 400 mg PO Q6H PRN PRN Reason: Fever or Pain, Mild (Pain Scale 1-3) Magnesium Hydroxide (Milk Of Magnesia 30 Ml Oral.Susp) 30 ml PO DAILY PRN PRN Reason: Constipation Melatonin (Melatonin 3 Mg Tablet) 6 mg PO BEDTIME PRN PRN Reason: Insomnia Ondansetron HCl (Ondansetron Hcl 4 Mg/2 Ml Vial) 4 mg IVPUSH Q8H PRN PRN Reason: Nausea and Vomiting Pharmacy Consult (Consult Rx Vancomycin Dosing) 1 each MISCELLANE DAILY PRN PRN Reason: Consult order Pharmacy Consult (Consult Rx Vancomycin Dosing) 1 each MISCELLANE DAILY PRN PRN Reason: Consult order Senna (Sennosides 8.6 Mg Tablet) 17.2 mg PO BEDTIME JODIE Sodium Chloride (0.9 % Sodium Chloride Flush 3 Ml Syringe) 3 ml IVFLUSH QSHIFT JODIE Home Medications ?Medication ?Instructions ?Recorded ?Confirmed ?Last Taken ?Type fenofibrate 160 mg tablet 160 mg PO DAILY 12/25/23 01/10/25 01/09/25 History cyanocobalamin (vitamin B-12) 1,000 mcg PO DAILY 01/10/25 01/10/25 01/09/25 History 1,000 mcg tablet pantoprazole 40 mg tablet,delayed 40 mg PO Q2D@0630 01/10/25 01/10/25 01/09/25 History release (Protonix) riboflavin (vitamin B2) 400 mg 400 mg PO DAILY 01/10/25 01/10/25 01/09/25 History tablet spironolactone 25 1 tab PO DAILY 01/10/25 01/10/25 01/09/25 History mg-hydrochlorothiazide 25 mg tablet thiamine HCl (vitamin B1) 100 mg 100 mg PO DAILY 01/10/25 01/10/25 01/09/25 History tablet Physical Exam Vital Signs and Narrative: Vital Signs: Last Vital Signs Temp 100.9 F H 01/19/25 05:23 Pulse 99 01/19/25 05:23 Resp 24 H 01/19/25 05:23 BP 145/58 H 01/19/25 05:23 Pulse Ox 91 L 01/19/25 05:23 O2 Del Method Nasal Cannula 01/19/25 05:23 O2 Flow Rate 6 01/19/25 05:23 BMI result Body Mass Index 27.1 Alert and orientated X3, very anxious, restless, slightly diaphoretic Neuro: CN II-X11 intact, no deficits, visual acuity intact EYES: PERRLA, EOM intact, glasses on ENT: hearing intact, no issues with swallowing, uvula midline, lips moist, nares patent no epistaxis Cardiac: S1 S2 tachy, irregular intermittently. , no murmur, no JVD, no edema in Lower ext Pulmonary: lungs dimisnehd L>R Abdominal: BS active in all 4 quadrants, no guarding, tenderness, rebounding MSK: strength 5/5 upper and lower extremities : no CVA tenderness ostomy bag attached properly, stoma pink and healthy, urine yeloow and slightly cloudy Extremities: no edema in lower extremities, PT and DP pulses palpable +2 Psych: anxious Skin: scar R scalp, abdominal stoma fro bladder, ostomy bag in place Results Labs 01/19/25 04:11 01/19/25 04:11 Labs: Laboratory Results - last 24 hr 01/19/25 01/19/25 01/19/25 04:11 04:14 05:19 MCV 87.2 MCH 29.4 MCHC 33.7 RDW 15.2 Plt Count 428 H D MPV 9.2 L Immature Gran % (Auto) 0.8 H Neut % (Auto) 93.3 H Lymph % (Auto) 2.1 L [place] % (Auto) 3.1 Eos % (Auto) 0.3 Baso % (Auto) 0.4 Lymph # (Auto) 0.5 L [place] # (Auto) 0.8 Eos # (Auto) 0.1 Baso # (Auto) 0.1 Abs Immat Gran (auto) 0.20 H Absolute Neuts (auto) 22.5 H Absolute Nucleated RBC 0.000 Nucleated RBC % (auto) 0.0 Smear Tech's Comments VERIFIED PT 13.0 H INR 1.1 VBG pH 7.47 H VBG pCO2 28 VBG pO2 68 VBG HCO3 21 L VBG O2 Saturation 92.0 VBG Base Excess -1.0 Anion Gap 18 Estim Creat Clear Calc 84.6 Estimated GFR > 60 Random Glucose 128 H Lactic Acid 1.7 Calcium 8.6 Magnesium 1.7 Total Bilirubin 0.5 AST 19 ALT < 6 Alkaline Phosphatase 55 B-Natriuretic Peptide 182 H Total Protein 6.9 Albumin 3.3 L Influenza Type A (PCR) NEGATIVE Influenza Type B (PCR) NEGATIVE RSV RNA Qual (PCR) NEGATIVE SARS-CoV-2 RNA (RT-PCR) NEGATIVE ABG ABG results: VBG Interpretation: ECG Attestation: I personally reviewed and interpreted this ECG as follows: (ST PREATRAIL Cont. QTC 500 ) Prior ECG tracings: available for review Imaging Radiologist's Impressions: CXR Mild basilar subsegmental atelectasis or infiltrates. Heart size is normal. No acute fracture. IMPRESSION: Mild basilar subsegmental atelectasis or infiltrates. Assessment and Plan (1) Sepsis: Qualifiers: Sepsis type: sepsis due to unspecified organism Status: Acute (2) Acute hypoxic respiratory failure: Status: Acute (3) PNA (pneumonia): Qualifiers: Pneumonia type: due to unspecified organism Laterality: unspecified laterality Lung location: unspecified part of lung Qualified Code(s): J18.9 - Pneumonia, unspecified organism Status: Acute (4) Alcohol withdrawal: Qualifiers: Complication of substance-induced condition: uncomplicated Qualified Code(s): F10.930 - Alcohol use, unspecified with withdrawal, uncomplicated Status: Acute (5) Hypomagnesemia: Status: Acute (6) Atrial flutter: Qualifiers: Atrial flutter type: unspecified Qualified Code(s): I48.92 - Unspecified atrial flutter Status: Acute (7) Leukocytosis: Qualifiers: Leukocytosis type: other Qualified Code(s): D72.828 - Other elevated white blood cell count Status: Acute (8) QT prolongation: Status: Acute Plan Patient is a 74-year-old male with past medical history of alcohol abuse ( 6-8 beers per day ), hypertension, hyperlipidemia, Herrera's esophagus, GERD, fatty liver, recent diagnosis of atrial flutter, chronic back pain, bilateral rotator cuff repairs, bladder cancer with bladder and prostate removal and current ostomy, 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 1. Acute hypoxic respiratory failure/ Sepsis Pt hypoxic, tachycardic with fever upon prsentation to ED with a Leukocytosis of 17. LA 1.7. patient requiring 6 L nasal cannula. VBG notes mild alkalotic state with a pH of 7.47 CO2 of 28, bicarb of 21 base excess -1 CT scan done previous admission will not be repeated at this time unless patient does not make any progress antibiotics initiated including vanco and Zosyn as patient failed Ceftin and azithromycin duo nebs and supportive care ordered 2. CAP patient was sent home on January 12 on Ceftin and azithromycin, patient had indication of bronchiolitis during that admission antibiotics changed to vanco and Zosyn with a noted leukocytosis of 17. Patient requiring 6 L of nasal cannula. Wean as tolerated patient does not have a productive cough. Unable to obtain sputum sample. MRSA swab requested All viral studies were negative Ordered legionnaire and strep pneumoniae Continue nebs and supportive care. 3. Alcohol withdrawal Alcohol withdrawal suspected based on patient's presentation with severe anxiety and restless legs. Phenobarb protocol initiated with loading dose 10 mg/Kg ordered and consult to pharmacy Thiamine and folic acid ordered CIWA ordered Magnesium 1.7. Patient received 2 g IV with repeat testing in 24 hours. Patient may require oral magnesium. Per patient's spouse patient has used alcohol on a daily basis for over 30+ years. Patient's insight into alcohol cessation is lacking currently. 4. Hypomagnesemia Mg 1.7 Restless legs noted 2GMS ordered Repeat MG in 24 hours, resume home dose of MG OX 5. Atrial Flutter Patient diagnosed with a flutter this past admission. Patient declined anticoagulation due to alcohol use and at the time patient was not ready for cessation of alcohol use. Pt now states he plans to stop cold turkey. Pt is exhibiting s/s of ETOH withdrawal. Patient noted to be intermittently on a flutter in the emergency room today. Eliquis initiated, pt agreeable, cardiology consult will be needed if patient sustains atrial flutter. CHADS-VASc score is 2, no current bleeding issues or risks noted. Pts goal is to stop using alcohol (uncleasr if this will occur, risk for bleeding will need to be reevaluated upon discharge) Will order metoprolol 50 mg daily, confirmed with spouse as BP will tolerate Telemetry BNP elevated, echo done past admission, EF 50-55%, mild and AR pt normally on HCTZ and spironolactone, resume when medically stable 6. Leukocytosis UA ordered with reflex, stoma for ostomy is healthy and pink, urine is a hazy yellow, UA with reflex ordered to rule out UTI Noted CXR with suspected PNA vs Atelectasis. Pt does not have productive cough. BC X2 pending ABD exam benign, LA 1.7, no indication to perform CT abd. CT chest done this past admission, noted bronchiolitis. Pt is on vanco and Zosyn currently as patient recently failed Ceftin and azithromycin. 7. QT prolongation MG 1.7, giving 2 GMS today Telemetry Repeat ECG in AM Checking TSH with reflex Pt was on azithromycin and completed ABX after DC 01/12/25 Pt is not on SSRI's Patient will require hospital admission for sepsis workup, acute hypoxic respiratory failure. Source suspected possible pneumonia. Patient will require estimated 72 hours minimum for hospital stay. Total time managing care of this patient today: 45 minutes. Quality Stroke Does the patient have a stroke diagnosis?: No Reason for No Anti-thrombotic by Day Two: N/A - Med Ordered VTE Prior VTE?: No VTE Risk Level:: Medical - moderate - high VTE Device Contraindication: N/A - Device Ordered VTE Drug Contraindication: N/A - Med Ordered
--- OUTSIDE RECORDS SUMMARY | 2025-01-19 06:05 | XMS_ITS | Encounter Summary ---
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 - Main Lab [address] [facility] [place] [address] Ernst Mayers MD [address] [place] [address] Personal history of malignant neoplasm [...] mmol/L LAB CHEMISTRY METHOD 11/23/2024 5:37 PM [facility] Potassium 3.7 3.5 - 5.5 mmol/L LAB CHEMISTRY METHOD 11/23/2024 5:37 PM [facility] Chloride 99 96 - 110 mmol/L LAB CHEMISTRY METHOD 11/23/2024 5:37 PM [facility] CO2 27 21 - 32 mmol/L LAB CHEMISTRY METHOD 11/23/2024 5:37 PM [facility] Anion Gap 8 3 - 11 LAB CHEMISTRY METHOD 11/23/2024 5:37 PM [facility] Glucose 101(H) 70 - 100 mg/dL LAB CHEMISTRY METHOD 11/23/2024 5:37 PM [facility] BUN 6 5 - 25 mg/dL LAB CHEMISTRY METHOD 11/23/2024 5:37 PM [facility] Creatinine 0.79 0.70 - 1.30 mg/dL LAB CHEMISTRY METHOD 11/23/2024 5:37 PM [facility] eGFR 93 >=60 mL/min/1. 73m2 LAB CHEMISTRY METHOD 11/23/2024 5:37 PM [facility] Comment:Calculation based on the??Chronic Kidney Disease Epidemiology Collaboration (CKD-EPI) equation refit??without adjustment for race. BUN/Creatinine Ratio 7.6 LAB CHEMISTRY METHOD 11/23/2024 5:37 PM [facility] Calcium 9.0 8.5 - 10.5 mg/dL LAB CHEMISTRY METHOD 11/23/2024 5:37 PM [facility] AST (SGOT) 23 10 - 42 unit/L LAB CHEMISTRY METHOD 11/23/2024 5:37 PM [facility] ALT (SGPT) 23 10 - 60 unit/L LAB CHEMISTRY METHOD 11/23/2024 5:37 PM [facility] Alkaline Phosphatase 52 42 - 121 unit/L LAB CHEMISTRY METHOD 11/23/2024 5:37 PM EST [facility] Total Protein 7.3 6.0 - 8.0 g/dL LAB CHEMISTRY METHOD 11/23/2024 5:37 PM [facility] Albumin 3.4 3.2 - 5.0 g/dL LAB CHEMISTRY METHOD 11/23/2024 5:37 PM [facility] Total Bilirubin 0.5 0.0 - 1.4 mg/dL LAB CHEMISTRY METHOD 11/23/2024 5:37 PM [facility] Blood Venous blood specimen / Unknown 11/23/2024 8:18 AM EST 11/23/2024 1:35 PM EST us Ernst Mayers MD LAB BLOOD ORDERABLES Final Resul t [facility] [address] [place] [address], * Complete blood count (11/23/2024 8:18 AM EST) WBC 7.6 4.8 - 10.8 K/mcL LAB HEMETOLOGY METHOD 11/23/2024 1:58 PM [facility] RBC 5.10 4.50 - 5.50 M/mcL LAB HEMETOLOGY METHOD 11/23/2024 1:58 PM [facility] Hemoglobin 14.7 13.5 - 17.5 g/dL LAB HEMETOLOGY METHOD 11/23/2024 1:58 PM [facility] Hematocrit 44.7 42.0 - 54.0 % LAB HEMETOLOGY METHOD 11/23/2024 1:58 PM [facility] MCV 88.3 79.0 - 98.0 FL LAB HEMETOLOGY METHOD 11/23/2024 1:58 PM [facility] MCH 29.1 27.0 - 32.0 pcg LAB HEMETOLOGY METHOD 11/23/2024 1:58 PM EST [facility] MCHC 32.9 32.0 - 37.0 g/dL LAB HEMETOLOGY METHOD 11/23/2024 1:58 PM EST [facility] RDW 14.5 11.0 - 15.0 % LAB HEMETOLOGY METHOD 11/23/2024 1:58 PM EST [facility] Platelets 349 130 - 400 K/mcL LAB HEMETOLOGY METHOD 11/23/2024 1:58 PM EST [facility] MPV 9.5 7.0 - 11.0 FL LAB HEMETOLOGY METHOD 11/23/2024 1:58 PM EST [facility] NRBC 0.0 <1.0 % LAB HEMETOLOGY METHOD 11/23/2024 1:58 PM EST [facility] NRBC Absolute 0.00 <0.10 K/mcL LAB HEMETOLOGY METHOD 11/23/2024 1:58 PM EST [facility] Blood Venous blood specimen / Unknown 11/23/2024 8:18 AM EST 11/23/2024 1:35 PM EST Ernst Mayers MD LAB BLOOD ORDERABLES Final Resul t [facility] [address] [place] [address], * Prostate specific antigen diagnostic (11/23/2024 8:18 AM EST) PSA <0.06 0.00 - 4.00 ng/mL LAB CHEMISTRY METHOD 11/23/2024 5:46 PM EST [facility] Blood Venous blood specimen / Unknown 11/23/2024 8:18 AM EST 11/23/2024 1:35 PM EST [facility] - 11/23/2024 5:46 PM EST The Siemens Advia Centaur Chemiluminescent Immunoassay is used. Results obtained with different assay methods or kits cannot be used interchangeably. Results cannot be interpreted as absolute evidence of the presence or absence of malignant disease. us Ernst Mayers MD LAB BLOOD ORDERABLES Final Resul t [facility] [address] [place] [address], documented in this encounter Visit Diagnoses Diagnosis Personal history of malignant neoplasm of bladder Personal history of malignant neoplasm of prostate documented in this encounter Care Teams Drywall Mechanic Relationship Specialty Start Date End Date Charlotte Reid NP [address] [facility] [place] [id number] PCP - General Nurse Practitioner 11/23/24 documented as of this encounter
--- OUTSIDE RECORDS SUMMARY | 2025-01-19 06:05 | XMS_ITS | Data Portability ---
Author Organization JOHANNA Arguelles s, [address] Address [address] [place] [address] Assessment No assessment recorded. Plan of Treatment Reminders Order Date Submit Date Provider Last Modified By Organization Details Last Modified Time Details Appointments None recorded. Lab rapid SARS CoV 2 Ag, QL IA, respiratory specimen 2021 [email or web address] 1 _marybel zapien, [address] [place] [address], [address], 09:31:48 rapid flu (A+B) 2021 [email or web address] 1 _marybel [facility], [address] [place] [address], [id number], 09:31:48 Referral None recorded. Procedures None recorded. Surgeries None recorded. Imaging None recorded. Medication Orders Augmentin 875 mg-125 mg tablet 2021 [facility] #[id number], [address] [place], [address], 08:38:14 amoxicillin 875 mg tablet 2021 [id number], [address] [place], [address], 09:31:51 fluticasone propionate 50 mcg/actuati on nasal spray,suspe nsion 2021 [facility] #[id number], [address] [place], [address], 09:31:51 Patient TargetsNo targets recorded. Patient Instructions Encounter Date Encounter Id Patient Instructions Last Modified By Organization Details Last Modified Time 10/11/2022 [id number] Acute Sinusitis: Care Instructions [email or web address] Not available 10/11/2022 09:31:48 10/18/2022 [id number] animal bites: care instructions ori lopez Not [...] =Negat rosy Not Available [facility] [address] [place], [place] [address], [address], 10/11/2022 08:55:37 10/11/20 22 10/11/2022 rapid SARS CoV 2 Ag, QL IA, respi rator y speci men Unknown Analyte negati ve Not Available [facility] [address] [place], [place] [address], [address], 10/11/2022 08:55:37 10/11/2010/11/2022 rapid flu (A+B) Unknown Analyte Normal = Negati ve Not Available [facility] [address] [place], [address], 10/11/2022 08:55:44 10/11/2010/11/2022 rapid flu (A+B) Unknown Analyte negati ve Not Available [facility] [address], [address], 10/11/2022 08:55:44 10/11/2010/11/2022 rapid flu (A+B) Unknown Analyte Normal = Negati ve Not Available [facility] [address], [address], 10/11/2022 08:55:44 10/11/2010/11/2022 rapid flu (A+B) Unknown Analyte negati ve Not Available [facility] [address], [address], 10/11/2022 08:55:44 Result Notes None recorded. Problems Name Problem SNOMED Code Status Onset Date Resolution Date Notes Provider Name and Address Organization Details Recorded Time Hypertensiv e disorder 05696118 Active 2021 Antonella haywood PA - [facility] 2 08:54:43 Malignant neoplasm of urinary bladder 550263807 Completed 202110/11/2022 Antonella haywood PA - [facility] 08:54:52 Problem Notes None recorded. Procedures Surgical History Date Name Laterality Status Provider Name and Address Organization Details Recorded Time Wound Care UC completed JOHANNA THOMAS JD, [place], [address], PA - [facility] 10/18/2022 08:28:16 excision of urinary bladder completed Antonella Wilbur PA - [facility] 10/11/2022 08:55:30 Imaging Results None recorded. Procedure Notes None recorded. Medical Equipment None Reported. Allergies Allergen ID Allergen Name Allergen Category Reaction Reaction Severity Criticality Documentation Date Start Date Code Code System Note Provider Name and Address Organization Details Recorded Time 06396 benazepri l medicatio n Not available Not available Not available 10/11/2022 02443 RxNorm Antonella haywood PA - [facility] [...] DateTime 12/22/202 2 182.88 cm 31.2 kg/m2 264270. 25 g 95 % 95 % 96 /min 20 /min 98.8 [degF] 167 mm[Hg] 84 mm[Hg] Antonella Huerta PA - [facility] 08:52:07 Date Recorded Body height Body mass index (BMI) Body weight Heart rate Oxygen saturation Oxygen saturation in Arterial blood by Pulse oximetry Respiratory rate Body temperature Systolic blood pressure Diastolic blood pressure Provider Name and Address Organization Details Last Updated DateTime 2 182.88 cm 31.2 kg/m2 082337. 25 g 95 /min 94 % 94 % 18 /min 97.9 [degF] 166 mm[Hg] 78 mm[Hg] VALENTIN MARIE PA [facility] 08:09:32 Social History Question Answer Notes LastModified by Fancred Details LastModified Time Tobacco Smoking Status Never Smoker Antonella haywood PA - [facility] 10/11/2022 08:55:05 What Is Your Level [...] or 50 mcg/0.25mL dose 01/11/2021 completed Antonella Wilbur null, PA - [facility] 10/11/2022 08:52:46 COVID-19, mRNA, LNP-S, PF, 100 mcg/0.5mL dose or 50 mcg/0.25mL dose 12/14/2020 completed Antonella Deanna null, PA - [facility] 10/11/2022 08:52:46 Influenza, high-dose, quadrivalent, PF 06/22/2022 completed Antonella Wilbur null, PA - [facility] 10/11/2022 08:52:46 COVID-19, mRNA, LNP-S, PF, 100 mcg/0.5mL dose or 50 mcg/0.25mL dose 08/17/2021 completed Antonella Wilbur null, PA - [facility] 10/11/2022 08:52:46 Tdap 05/21/2022 completed VALENTIN MARIE null, PA - [facility] 10/18/2022 08:26:32 Past Encounters Encounter ID Performer Location Encounter Start Date Encounter Closed Date Diagnosis/Indication Diagnosis SNOMED-CT Code Diagnosis ICD10 Code Diagnosis Note [id number] [address] [address] 08/12/2016 10:09:22 08/12/2016 10:48:51 [id number] NYA KAUR MD [address] [address] 10/11/2022 08:17:14 10/11/2022 09:34:16 Cough 50182924 R05.9 Acute sinusitis 14688479 J01.90 If your symptoms worsen or persist [...] to the Emergency Department . [facility] or see your primary care physician if your symptoms fail to improve in 5-7 days. You should follow up sooner if your symptoms worsen significan tly or if you develop new symptoms that concern you. [id number] JOHANNA AUGUST [address] [address] 10/18/2022 08:02:10 10/18/2022 08:39:12 Dog bite of hand 583772026 W54.0XXA Health Concerns Section Related Observation LastModified by Organization Detai ls LastModified Time None Recorded Concern Status LastModified by Organization Details LastModified Time None Recorded Advance Directives Directive None Recorded Payers Encounter Date Sequence Insurance Name Policy Number Policy Platt Covered Member ID Platt Member ID Guarantor Name 08/12/2016 1 [place] [employer] Nathan Monique [id number] Nathan Monique 08/12/2016 2 [place] [id number] Nathan Monique [id number] Nathan Monique 10/11/2022 1 [place] Nathan Monique [id number] Nathan Linosz 10/11/2022 2 [place] [id number] Nathan Cannonz [id number] Nathan Linosz 10/18/2022 1 [place] Nathan Monique [id number] Nathan Linosz 10/18/2022 2 [place] [id number] Nathan Cannonz [id number] Nathan Monique Notes Date Note Type [...] NYA KAUR MD [address] [place], [address], [place] - [facility] 10/11/2022 09:33:15 10/18/2022 text/html Animal BiteRepor sweetie bypatient.Onset of exposure:12 hours ago; date: 10/17/2022 Type of Exposure:dog bite Wound Type:Puncture Location:left; hands Context:animal: county - , vaccinated ; agency notified Associated Symptoms:no wound drainage; no redness; no swelling Vaccine Status:Tetanus vaccine within past 5 years JOHANNA AHUMADA [address] [place], [address], [place] - [facility] 10/18/2022 08:39:30
--- OUTSIDE RECORDS SUMMARY | 2025-01-19 06:05 | XMS_ITS | Clinical Summary ---
Author Organization [address] Address [address] [place] [address] Phone Care Team Providers Care Retail Personal Banker Name Role Phone Jeanette, Charlotte CALHOUN Primary Care Provider [phone] Encounters Date Type Department Care Team Description 11/23/2024 Lab Requisition [facility] - Main Lab [address] [facility] [place] [address] Ernst Mayers MD Personal history [...] LAB CHEMISTRY METHOD 11/23/2024 5:46 PM EST [facility] Blood Venous blood specimen / Unknown 11/23/2024 8:18 AM EST 11/23/2024 1:35 PM EST [facility] - 11/23/2024 5:46 PM EST The Siemens [employer]endant [employer] Chemiluminescent Immunoassay is used. Results obtained with different assay methods or kits cannot be used interchangeably. Results cannot be interpreted as absolute evidence of the presence or absence of malignant disease. us Ernst Mayers MD LAB BLOOD ORDERABLES Final Resul t [facility] [address] [place] [address], [place] [phone] * Complete blood count (11/23/2024 8:18 AM EST) WBC 7.6 4.8 - 10.8 K/mcL LAB HEMETOLOGY METHOD 11/23/2024 1:58 PM EST [facility] RBC 5.10 4.50 - 5.50 M/mcL LAB HEMETOLOGY METHOD 11/23/2024 1:58 PM [facility] Hemoglobin 14.7 13.5 - 17.5 g/dL LAB HEMETOLOGY METHOD 11/23/2024 1:58 PM [facility] Hematocrit 44.7 42.0 - 54.0 % LAB HEMETOLOGY METHOD 11/23/2024 1:58 PM EST [facility] MCV 88.3 79.0 - 98.0 FL LAB HEMETOLOGY METHOD 11/23/2024 1:58 PM EST [facility] MCH 29.1 27.0 - 32.0 pcg LAB HEMETOLOGY METHOD 11/23/2024 1:58 PM EST [facility] MCHC 32.9 32.0 - 37.0 g/dL LAB HEMETOLOGY METHOD 11/23/2024 1:58 PM EST [facility] RDW 14.5 11.0 - 15.0 % LAB HEMETOLOGY METHOD 11/23/2024 1:58 PM [facility] Platelets 349 130 - 400 K/mcL LAB HEMETOLOGY METHOD 11/23/2024 1:58 PM [facility] MPV 9.5 7.0 - 11.0 FL LAB HEMETOLOGY METHOD 11/23/2024 1:58 PM [facility] NRBC 0.0 <1.0 % LAB HEMETOLOGY METHOD 11/23/2024 1:58 PM EST [facility] NRBC Absolute 0.00 <0.10 K/mcL LAB HEMETOLOGY METHOD 11/23/2024 1:58 PM [facility] Blood Venous blood specimen / Unknown 11/23/2024 8:18 AM EST 11/23/2024 1:35 PM EST us Ernst Mayers MD LAB BLOOD ORDERABLES Final Resul t [facility] [address] [place] [address], [place] [phone] * (ABNORMAL) Comprehensive metabolic panel (11/23/2024 8:18 AM EST) Sodium 134 133 - 145 mmol/L LAB CHEMISTRY METHOD 11/23/2024 5:37 PM [facility] Potassium 3.7 3.5 - 5.5 mmol/L LAB CHEMISTRY METHOD 11/23/2024 5:37 PM [facility] Chloride 99 96 - 110 mmol/L LAB CHEMISTRY METHOD 11/23/2024 5:37 PM [facility] CO2 27 21 - 32 mmol/L LAB CHEMISTRY METHOD 11/23/2024 5:37 PM [facility] Anion Gap 8 3 - 11 LAB CHEMISTRY METHOD 11/23/2024 5:37 PM [facility] Glucose 101(H) 70 - 100 mg/dL LAB CHEMISTRY METHOD 11/23/2024 5:37 PM [facility] BUN 6 5 - 25 mg/dL LAB CHEMISTRY METHOD 11/23/2024 5:37 PM [facility] Creatinine 0.79 0.70 - 1.30 mg/dL LAB CHEMISTRY METHOD 11/23/2024 5:37 PM [facility] eGFR 93 >=60 mL/min/1. 73m2 LAB CHEMISTRY METHOD 11/23/2024 5:37 PM [facility] Comment:Calculation based on the??Chronic Kidney Disease Epidemiology Collaboration (CKD-EPI) equation refit??without adjustment for race. BUN/Creatinine Ratio 7.6 LAB CHEMISTRY METHOD 11/23/2024 5:37 PM [facility] Calcium 9.0 8.5 - 10.5 mg/dL LAB CHEMISTRY METHOD 11/23/2024 5:37 PM [facility] AST (SGOT) 23 10 - 42 unit/L LAB CHEMISTRY METHOD 11/23/2024 5:37 PM [facility] ALT (SGPT) 23 10 - 60 unit/L LAB CHEMISTRY METHOD 11/23/2024 5:37 PM [facility] Alkaline Phosphatase 52 42 - 121 unit/L LAB CHEMISTRY METHOD 11/23/2024 5:37 PM [facility] Total Protein 7.3 6.0 - 8.0 g/dL LAB CHEMISTRY METHOD 11/23/2024 5:37 PM [facility] Albumin 3.4 3.2 - 5.0 g/dL LAB CHEMISTRY METHOD 11/23/2024 5:37 PM [facility] Total Bilirubin 0.5 0.0 - 1.4 mg/dL LAB CHEMISTRY METHOD 11/23/2024 5:37 PM [facility] Blood Venous blood specimen / Unknown 11/23/2024 8:18 AM EST 11/23/2024 1:35 PM EST us Ernst Mayers MD LAB BLOOD ORDERABLES Final Resul t [facility] [address] [place] [address], [place] [phone] from Last 3 Months Insurance MEDICARE [place] MEDIC[place] AD[place]ANTAGE Care Teams Retail Personal Banker Relationship Specialty Start Date End Date Charlotte Reid NP [address] [place] [facility] [place] [address] PCP - General Nurse Practitioner 11/23/24
--- OUTSIDE RECORDS SUMMARY | 2025-01-19 06:06 | XMS_ITS | Patient Health Record ---
Author Organization [facility] Address [address] [place] [address] Care Team Providers Care Hot Frame Tender Name Role Phone Aminata SOSA, Josué Primary Care Provider Ralph Gudino Unavailable [phone] Allergies No Known Allergies Reason For Referral [...] Status Risk Notes Problem Ulcer of toe (826556630) Non-pressure chronic ulcer of other part of right foot limited to breakdown of skin (L97.511) Active confirmed Problem Acquired hammer toe of right foot (3489348839517 105) Acquired hammer toe of right foot (M20.41) Active confirmed Plan Of Treatment Pending Test Test Name Order Date X ray : Foot, right 3V 12/04/2022 [id number] NAIL, 1-5 12/24/2022 10584- Debride <25 sq cm 12/24/2022 [id number] OF HEMATOMA/FLUID 023 Insurance Providers Payer Name Payer Address Payer Phone Subscriber Number Group Number Insured Name Patient Relationship to Insured Coverage Start Date Coverage End Date Medicare National [employer] [address] [place] [address] [id number] Nathan Monique Self - patient is the insured [employer] [address] [place] [address] [id number] Nathan Monique Self - patient is the insured Medical (General) History Medical History History ICD Code Cancer High blood pressure Surgical History Surgery Date(Month/Year) rotator cuff surgery 2014 Bladder Cancer 2016
--- OUTSIDE RECORDS SUMMARY | 2025-01-19 06:06 | XMS_ITS | Data Portability ---
Author Organization [place] - [facility], Allergy Address [address] [address] Care Team Providers Care Human Resources Trainee Name Role Phone CRISTA CHAVEZ Primary Care Provider [phone] Assessment Encounter Date Assessment Date Assessment LastModified [...] lab - H+E histology w/stains 2023 024 [email or web address] [facility] (Centralized Electronic Ordering - All Locations), Patient Can Go To The Location Of Their Choice, [id number] 07/16/2024 14:45:25 Referral None recorded. Procedures None recorded. Surgeries exam under anesthesi a (SURG) 2023 024 [email or web address] Not available 07/09/2024 10:42:29 Imaging None recorded. Medication Orders ciproflox acin 0.3 %-dexamet hasone 0.1 % ear drops,man pension 2023 024 [email or web address] [id number], [address] [place], [address], 08/03/2024 08:27:31 ciproflox acin 0.3 %-dexamet hasone 0.1 % ear drops,man pension 2023 024 [email or web address] [id number], [address] [place], [address], 08/03/2024 08:27:31 Patient TargetsNo targets recorded. Patient [...] l exostosi s of external ear canals 66978987773 29886 Active 2022 Exostosi s of external canal, bilatera l; Note: Date Diagnose d: 11/29/2022 10:52 AM (H61.813 ) Not Available [facility] 4 02:45:07 Abnormal auditory percepti on 91591035 Active 2019 Other abnormal auditory percepti ons, left ear; Note: Date Diagnose d: 0 8:57 AM (H93.292 ) Not Available [facility] 4 02:45:04 Impacted cerumen in right ear 71678515217 85959 Active 2017 Impacted cerumen, right ear; Note: Date Diagnose d: 10/23/2017 9:09 AM (H61.21) Not Available [facility] 4 02:44:58 Chronic serous otitis media 94374914 Active 2013 Chronic serous otitis media; Note: Date Diagnose d: 09/29/20 14 9:17 AM (381.10) Not Available [facility] 4 02:45:00 Bilatera l disorder of Eustachi an tubes 61923961698 12367 Active 2014 Other specifie d disorder s of Eustachi an tube, bilatera l; Note: Date Diagnose d: 08/18/20 15 11:50 AM (H69.83) Not Available [facility] 4 02:45:04 Mixed conducti ve and sensorin eural hearing loss of left ear 46033129365 107 Active 2015 Mixed conducti ve and [...] 16 12:57 PM (H90.A32 ) Not Available [facility] 4 02:45:00 Mass of neck 625223929 Active 2015 Localize d swelling , mass and lump, neck; Note: Date Diagnose d: 08/17/20 16 2:38 PM (R22.1) Not Available [facility] 4 02:45:02 Neck swelling 239462048 Active 2015 Localize d swelling , mass and lump, neck; Note: Date Diagnose d: 08/17/20 16 2:38 PM (R22.1) Not Available [facility] 4 02:45:02 Sensorin eural hearing loss 08595203 Active 2014 Sensorin eural hearing loss, unilater al, right ear, with unrestri cted hearing on the contrala teral side; Note: Date Diagnose d: 08/18/20 15 11:50 AM (H90.41) Not Available [facility] 4 02:45:07 Middle ear conducti ve hearing loss 97072986 Active 2013 Conducti ve hearing loss, middle ear; Note: Date Diagnose d: 09/29/20 14 9:17 AM (389.03) Not Available [facility] 4 02:45:00 Otorrhea of right ear 41627591595 18809 Active 2014 Otorrhea , right ear; Note: Date Diagnose d: 09/30/20 15 3:32 PM (H92.11) Not Available [facility] 4 02:45:01 Disorder of right Eustachi an tube 11402259344 96571 Active 2015 Other specifie d disorder s of Eustachi an tube, right ear; Note: Date Diagnose d: 6 12:50 PM (H69.81) Not Available [facility] 4 02:45:05 Otorrhea of left ear 78869777356 68296 Active 2022 Otorrhea , left ear; Note: [...] Start Date : 10/29/19 19 Not Available [facility] 4 02:45:05 Sensorin eural hearing loss of bilatera l ears 030523755 Active 2016 Sensorin eural HL, bilatera l; Note: Date Diagnose d: 5 9:51 AM (389.18) ; Start Date : 11/05/19 15 Senso rineural hearing loss, bilatera l; Note: Date Diagnose d: 7 2:06 PM (H90.3) Sensor ineural hearing loss, bilatera l; Note: Date Diagnose d: 6 11:38 AM (H90.3) ; Start Date : 11/02/19 16 Not Available [facility] 4 02:44:59 Sensorin eural hearing loss in right ear 18770827562 100 Active 2015 Sensorin eural hearing loss, unilater al, right ear, with restrict ed hearing on the contrala teral side; Note: Date Diagnose d: 09/03/20 16 12:57 PM (H90.A21 ) Not Available [facility] 4 02:45:04 Otitis externa of left ear 19372299622 37424 Completed 201605/22/2024 Other otitis externa, left ear; Note: Date Diagnose d: 7 11:30 AM (H60.8X2 ) Not Available [facility] 4 02:45:03 Dysfunct ion of eustachi an tube 79029199 Active 2013 Eustachi an tube dysfunct ion; Note: Date Diagnose d: 09/29/20 14 9:17 AM (381.81) Eustac hian tube dysfunct ion; Note: Date Diagnose d: 09/29/20 14 9:54 AM (381.81) Not Available [facility] 4 02:45:02 Chronic mucoid otitis media of left middle ear 00434634587 13832 Active 2018 Chronic mucoid otitis media, left ear; Note: Date Diagnose d: 9 9:54 AM (H65.32) Not Available [facility] 4 02:44:59 Mixed conducti ve and sensorin eural hearing loss, bilatera l 596503621 Active 2015 Mixed conducti ve and sensorin [...] 4 02:45:06 Chronic maxillar y sinusiti s 56963845 Active 2016 Chronic maxillar y sinusiti s; Note: Date Diagnose d: 7 2:03 PM (J32.0) Not Available [facility] 4 02:44:58 Tobacco dependen ce syndrome 13376116 Active 2013 Tobacco abuse; Note: Date Diagnose d: 09/29/20 14 9:17 AM (305.1) Not Available [facility] 4 02:44:58 Otalgia of left ear 0439053434 Active 2018 Otalgia, left ear; Note: Date Diagnose d: 9 9:53 AM (H92.02) Not Available [facility] 4 02:45:03 Otalgia of right ear 5181352324 Active 2017 Otalgia, right ear; Note: Date Diagnose d: 10/23/2017 9:09 AM (H92.01) Not Available [facility] 4 02:45:01 Bilatera l chronic serous otitis 900905210 Active 2017 Chronic serous otitis media, bilatera l; Note: Date Diagnose d: 8 11:05 AM (H65.23) Not Available [facility] 4 02:45:03 Unilater al sensorin eural hearing loss with unrestri cted hearing on the contrala teral side Active 2013 Sensorin eural HL, unilater al; Note: Date Diagnose d: 09/29/20 14 9:54 AM (389.15) Not Available [facility] 4 02:45:02 Lesion of tongue 992288180 Active 2023 LORETO KELLY MD [address], [place], [place], [address] , [place] - [facility] 4 14:18:35 Neoplasm of uncertai n behavior of tongue 91716471 Active 2023 LORETO KELLY MD [address], [place], [place], [address] , [place] - [facility] 4 11:00:38 Current drinker 856386 Active 2023 LORETO KELLY MD [address], [place], [place], [address] , [place] - [facility] 4 08:36:11 Actinic keratosi s 469976097 Active 2023 LORETO KELLY MD [address], [place], [place], [address] , [place] - [facility] 4 08:37:20 Malignan t tumor of tongue 339616708 Active 2023 Tumor location - Left ventral tongue Stage - T1N0 Treatmen t - wide local excision Completi on - 07/14/24 Oncology team - Rashida MURRAY MD [address], [place], [place], [address] , [place] - [facility] 4 11:25:35 Otitis externa of left ear 42221661707 10280 Active 2016 Maricruz haywood [place] - [facility] 4 09:21:41 Notes:Some problems listed i n Document: #[id number] could not be added to this patient's chart. Please review this document and add these problems to the patient's chart manually as needed. Problem Notes None recorded. Procedures Surgical History Date Name Laterality Status Provider Name and Address Organization Details Recorded Time 4 excision of lesion of tongue completed LORETO JONES MD [address] [facility],[address], [address], [place] - [facility] 07/14/2024 15:23:25 4 Eardrum revision completed LORETO JONES MD 100 [facility],[place] [address], [place], [address], [place] [facility] 07/14/2024 15:24:08 4 Biopsy Anterior Tongue completed LORETO JONES MD 100 [facility],[address], [address], [facility] - [facility] 06/15/2024 14:18:28 Imaging Results Imaging Date Name Status LastModified by [facility] Details LastModified Time 10/26/2019 imaging/diagno stic result [...] Name and Address Organization Details Recorded Time 337136 prednison e medicatio n other Not available Not available 03/03/2024 8640 RxNorm React ion: unkno wn, unspe cifie d;; Not Available [facility] 4 01:12:03 150807 benazepri l medicatio n other Not available Not available 03/03/2024 64319 RxNorm React ion: unkno wn, unspe cifie d;; Not Available [facility] 01:12:05 Medications Name Sig Start Date Stop [...] ne propionat e 50 mcg/actua tion nasal spray,[facility] active Medicati on ID: [id number] B rand Name: fluticas one propiona te [...] Not Available Not Available Not Available Fluvirin 4777-1042 45 mcg (15 mcg x 3)/0.5 mL intramusc ular suspensio n 08/17 completed Not Available Not Available Not Available Vitals Date Recorded Body height Body mass index (BMI) Body weight Provider Name and Address Organization Details Last Updated DateTime 06/15/2024 182.88 cm 29.8 kg/m2 09123.32 g Jone Shanks [place] - [facility] 06/15/2024 13:49:40 Date Recorded Body height Body mass index (BMI) Body weight Provider Name and Address Organization Details Last Updated DateTime 07/09/2024 182.88 cm 29.8 kg/m2 23789.32 g Sandy Marie [place] - [facility] 07/09/2024 09:11:11 Date Recorded Body height Body mass index (BMI) Body weight Provider Name and Address Organization Details Last Updated DateTime 08/03/2024 182.88 cm 29.8 kg/m2 45751.32 g Kaylee Armenta [place] - [facility] 08/03/2024 08:27:25 Date Recorded Body height Body mass index (BMI) Body weight Provider Name and Address Organization Details Last Updated DateTime 10/07/2024 182.88 cm 29.8 kg/m2 03226.32 g Maricruz Camp [place] - [facility] 10/07/2024 09:21:28 Date Recorded Body height Body mass index (BMI) Body weight Provider Name and Address Organization Details Last Updated DateTime 12/09/2024 182.88 cm 30.1 kg/m2 622931.51 g Martin Guerrero [place] - [facility] 12/09/2024 09:49:15 Social History Question Answer Notes LastModified by Organizat ion Details LastModified Time Tobacco Smoking Status Former Smoker LORETO JONES MD [address] [place] [address], [address], [facility] - [facility] 06/15/2024 14:13:21 What Is Your Level [...] History Nothing Reported. Medical History Condition Response Allergies/Hayfever N Heart Problems N Anxiety N Tonsil Infections N Emphysema N Migraines N Thyroid Problems N Depression N COPD N Developmental Delay N Glaucoma N Nasal or Sinus Problems N Anemia N Immune System Disorder N Anesthesia Complications N Heart Attack ([place]) N Other Skin Condition N Diabetes N Rhinitis N Bleeding Disorder N Food Allergy N Hearing Loss Y Arthritis N Hyperlipidemia N Cancer Y Stroke N Dementia N Nasal polyps N Asthma N Sleep Disorder N High Cholesterol Y GERD/Reflux Y Liver Disease N Headaches N Fibromyalgia N Hypertension Y Speech Delay N Kidney Disease N Past Encounters Encounter ID Performer Location Encounter Start Date Encounter Closed Date Diagnosis/Indication Diagnosis SNOMED-CT Code Diagnosis ICD10 Code Diagnosis Note [id number] LORETO KELLY MD [facility] [address] [address] 06/15/2024 13:37:25 06/15/2024 14:25:25 Otorrhea of left ear [id number] 937609 H92.12 Lesion of tongue 2682661 05 K14.9 Recently diagnosed with lesion of the left ventral tongue and placed on nystatin. This appears to be more like leukoplaki a. We discussed proceeding with biopsy. Depending on the results of the biopsy we may need to consider additional procedures . [id number] LORETO KELLY MD [facility] [address] [address] 07/09/2024 08:47:57 07/09/2024 09:31:17 Otorrhea of left ear 6138104297 992300 H92.12 Lesion of tongue 4207572 05 K14.9 [id number] LORETO KELLY MD [facility] [address] [address] 08/03/2024 08:20:07 08/03/2024 08:41:55 History of malignant neoplasm of tongue 961713521 Z85.810 We reviewed that this area needs to be watched closely and I have suggested a trial of curcumin supplement s. Discussed he needs to notify his physicians as this can cause excess bleeding with invasive procedures I have also suggested an evaluation with Dr. Murray for considerat ion of reexcision and grafting versus serial examinatio ns. 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 There is also actinic damage of the left cheek. Suggest dermatolog y evaluation [id number] MASSIMO MURRAY MD [facility] [address] [address] 10/07/2024 08:36:40 10/07/2024 09:39:05 Malignant tumor of tongue 026399788 C02.9 [id number] MASSIMO MURRAY MD [facility] [address] [address] 12/09/2024 09:43:00 12/09/2024 10:25:14 Malignant tumor of tongue 293951634 C02.9 Health Concerns Section Related Observation LastModified by Organization Detai ls LastModified Time None Recorded Concern Status LastModified by Organization Details LastModified Time None Recorded Advance Directives Directive None Recorded Payers Encounter Date Sequence Insurance Name Policy Number Policy Platt Covered Member ID Platt Member ID Guarantor Name 06/15/2024 1 [place] [employer] Nathan Monique [id number] Nathan Monique 06/15/2024 2 [place] [id number] Nathan Monique [id number] Nathan Monique 07/09/2024 1 [place] Nathan Cannonz [id number] Nathan Nicolas Bartosz 07/09/2024 2 [place] [id number] Nathan Nicolas Bartosz [id number] Nathan Nicolas Bartosz 08/03/2024 1 [place] Nathan Nicolas Bartosz [id number] Nathan Nicolas Bartosz 08/03/2024 2 [place] [id number] Nathan Nicolas Bartosz [id number] Nathan Nicolas Bartosz 10/07/2024 1 [place] Nathan Nicolas Bartosz [id number] Nathan Nicolas Bartosz 10/07/2024 2 [place] [id number] Nathan Nicolas Bartosz [id number] Nathan Nicolas Bartosz 12/09/2024 1 [place] Nathan Linosz [id number] Nathan Nicolas Bartosz 12/09/2024 2 [place] [id number] Nathan Linosz [id number] Nathan Cannonz Notes Date Note Type [...] None for 8 years LORETO JONES MD [address] [place] [address], [address], [place] - [facility] 06/15/2024 16:51:40 07/09/2024 text/html 73 year [...] show precancerous changes. LORETO JONES MD 100 [facility],[address], [address], [facility] - [facility] 07/09/2024 13:26:15 08/03/2024 text/html Patient with [...] on that side. LORETO JONES MD 100 [facility],[address], [address], 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
--- NOTE | 2025-01-19 06:15 | MHC.EDTECH ---
Belongings list completed,copy placed in chart, urine sample collected and sent to lab
[2025-01-19] MEDS: vancomycin/NS 2,000 MG/500 ML PLAST..BAG 250 MG IV (06:23)
[2025-01-19 06:25] LABS: Appearance Urine Cloudy; Color Urine Dark Yellow; Glucose Urine UA Negative (Negative); Leukocyte Esterase Urine Large (3+) (Negative); Nitrite Urine Positive (Negative); PH 7.5 (5.0-9.0); UMIC TRIGGER UA YES; Urine Blood Small (1+) (Negative); Urine Ketones Trace mg/dL (Negative); Urine Protein 30 (1+) mg/dL (Neg-Trace)
[2025-01-19] MEDS: Magnesium Sulfate/H2O 2 GM/50 ML PIGGYBACK IV (06:36)
--- NOTE | 2025-01-19 06:46 | PHA.PROG ---
Admission Date/Time: January 19, 2025 06:04 Indication: respiratory infection Weight in k.718 kg Adjusted body weight in K.6 [place] body weight in Kg: Obesity Dosing Indication % IBW: Serum Creatinine - Last 168 Hours 01/19/25 04:11 Creatinine 0.84 Estimated CrCl and GFR - Last 168 Hours 01/19/25 04:11 Estim Creat Clear Calc 84.6 Estimated GFR > 60 Vancomycin Loading Dose: 2000 Current Vancomycin Dosing Regimen: 1000 Q12H Vancomycin Monitoring using AUC goal of 400 - 600 range with trough as surrogate marker: 513 Date and Time for next Vancomycin Level to be drawn: 01/20 @1700 Pharmacist Comments on Vancomycin Plan: Vancomycin dosing will take advantage of [employer] as a clinical decision support tool that uses Bayesian modeling to calculate individual patient's pharmacokinetic parameters and forecast the patient's drug concentration time course with the target goal AUC 24 range of 400 - 600 mg/L/hr.
[2025-01-19 06:48] LABS: Bacteria Urine None Seen (None Seen); RBC Urine 0-2 /HPF (0-2); Squamous Epithelial Cell Urine 0-2 /HPF (0-2)
[2025-01-19] MEDS: PHENobarbitaL sodium 130 MG/ML IM ONCE 310 MG IM (07:16)
[2025-01-19 07:27] LABS: TSH reflex Free T4 5.09 uIU/mL (0.32-4.0)
[2025-01-19 08:02] LABS: Free T4 (Free Thyroxine) 1.07 ng/dL (0.71-1.85)
[2025-01-19] MEDS: Folic Acid 1 MG TABLET PO (08:34)
[2025-01-19] MEDS: Thiamine HCL 100 MG TABLET PO (08:34)
[2025-01-19] MEDS: Metoprolol Succinate ER 50 MG TAB.ER.24H PO (08:34)
[2025-01-19] MEDS: Apixaban 5 MG TABLET PO ×2 (08:34→20:55)
--- NOTE | 2025-01-19 08:58 | HO.PM.IMPN ---
Subjective Subjective Date of Service: 01/19/25 Interval History: cough, sob Physical Exam Vital Signs: Vital Signs: Last Vital Signs Temp 98.9 F 01/19/25 06:27 Pulse 100 01/19/25 08:34 Resp 20 01/19/25 06:27 BP 143/64 H 01/19/25 08:34 Pulse Ox 94 01/19/25 06:27 O2 Del Method Nasal Cannula 01/19/25 06:27 O2 Flow Rate 6 01/19/25 06:27 BMI result Body Mass Index 27.1 General: AO X 3, no acute distress Resp: right basilar crackles, no accessory muscles used CVS: S1,S2,RRR GI: soft, non tender, non distended Neuro: motor grossly intact, alert Psych: appropriate affect, appropriate insight Objective Data Active Medications Acetaminophen (Acetaminophen 325 Mg Tablet) 650 mg PO Q6H PRN PRN Reason: Pain, Mild 1-3,fever,headache Albuterol/Ipratropium (Albuterol/Iprat 2.5/0.5mg 3 Ml Ampul.Neb) 3 ml INHALE Q4H PRN PRN Reason: Shortness of Breath/Wheezing Apixaban (Apixaban 5 Mg Tablet) 5 mg PO BID [facility] Last Admin: 01/19/25 08:34 Dose: 5 mg Documented By: PETER Calcium Carbonate (Calcium Carbonate 750 Mg Tab.Chew) 750 mg PO Q4H PRN PRN Reason: Heartburn Folic Acid (Folic Acid 1 Mg Tablet) 1 mg PO DAILY [facility] Last Admin: 01/19/25 08:34 Dose: 1 mg Documented By: PETER Piperacillin Sod/Tazobactam (Sod 3.375 gm/ Sodium Chloride) 50 mls @ 100 mls/hr IV Q6H [facility] Vancomycin HCl 1,000 mg/ (Sodium Chloride) 270 mls @ 270 mls/hr IV Q12H [facility] Magnesium Hydroxide (Milk Of Magnesia 30 Ml Oral.Susp) 30 ml PO DAILY PRN PRN Reason: Constipation Melatonin (Melatonin 3 Mg Tablet) 6 mg PO BEDTIME PRN PRN Reason: Insomnia Metoprolol Succinate (Metoprolol Succinate Er 50 Mg Tab.Er.24h) 50 mg PO DAILY [facility]; Protocol Last Admin: 01/19/25 08:34 Dose: 50 mg Documented By: PETER Ondansetron HCl (Ondansetron Hcl 4 Mg/2 Ml Vial) 4 mg IVPUSH Q8H PRN PRN Reason: Nausea and Vomiting Pharmacy Consult (Consult Rx Vancomycin Dosing) 1 each MISCELLANE DAILY PRN PRN Reason: Consult order Pharmacy Consult (Consult Rx Etoh Phenob Im/Po) 1 each MISCELLANE ONCE PRN; Protocol PRN Reason: Consult order Phenobarbital (Phenobarbital 30 Mg Tablet) 60 mg PO BID [facility] Stop: 01/21/25 09:01 Phenobarbital (Phenobarbital 30 Mg Tablet) 30 mg PO BID [facility] Stop: 01/23/25 09:01 Phenobarbital (Phenobarbital 30 Mg Tablet) 30 mg PO BEDTIME [facility] Stop: 01/24/25 21:01 Phenobarbital Sodium (Phenobarbital Sodium 130 Mg/Ml Vial Im Q3hx2) 233 mg IM Q3H [facility] Stop: 01/19/25 13:01 Senna (Sennosides 8.6 Mg Tablet) 17.2 mg PO BEDTIME [facility] Sodium Chloride (0.9 % Sodium Chloride Flush 3 Ml Syringe) 3 ml IVFLUSH QSHIFT [facility] Last Admin: 01/19/25 07:19 Dose: Not Given Documented By: PETER Non-Admin Reason: IV Running Thiamine HCl (Thiamine Hcl 100 Mg Tablet) 100 mg PO DAILY [facility] Last Admin: 01/19/25 08:34 Dose: 100 mg Documented By: PETER Labs 01/19/25 04:11 01/19/25 04:11 Labs: Laboratory Results - last 24 hr 01/19/25 01/19/25 01/19/25 04:11 04:14 05:19 MCV 87.2 MCH 29.4 MCHC 33.7 RDW 15.2 Plt Count 428 H D MPV 9.2 L Immature Gran % (Auto) 0.8 H Neut % (Auto) 93.3 H Lymph % (Auto) 2.1 L [place] % (Auto) 3.1 Eos % (Auto) 0.3 Baso % (Auto) 0.4 Lymph # (Auto) 0.5 L [place] # (Auto) 0.8 Eos # (Auto) 0.1 Baso # (Auto) 0.1 Abs Immat Gran (auto) 0.20 H Absolute Neuts (auto) 22.5 H Absolute Nucleated RBC 0.000 Nucleated RBC % (auto) 0.0 Smear Tech's Comments VERIFIED PT 13.0 H INR 1.1 VBG pH 7.47 H VBG pCO2 28 VBG pO2 68 VBG HCO3 21 L VBG O2 Saturation 92.0 VBG Base Excess -1.0 Anion Gap 18 Estim Creat Clear Calc 84.6 Estimated GFR > 60 Random Glucose 128 H Lactic Acid 1.7 Calcium 8.6 Magnesium 1.7 Total Bilirubin 0.5 AST 19 ALT < 6 Alkaline Phosphatase 55 Total Creatine Kinase 24 L B-Natriuretic Peptide 182 H Total Protein 6.9 Albumin 3.3 L TSH 5.09 H Free T4 1.07 Urine Color Urine Appearance Urine pH Ur Specific [place] Urine Protein Urine Glucose (UA) Urine Ketones Urine Blood Urine Nitrite Ur Leukocyte Esterase Urine RBC Urine WBC Ur Squamous Epith Cells Urine Bacteria Hyaline Casts Influenza Type A (PCR) NEGATIVE Influenza Type B (PCR) NEGATIVE RSV RNA Qual (PCR) NEGATIVE SARS-CoV-2 RNA (RT-PCR) NEGATIVE 01/19/25 06:17 MCV MCH MCHC RDW Plt Count MPV Immature Gran % (Auto) Neut % (Auto) Lymph % (Auto) [place] % (Auto) Eos % (Auto) Baso % (Auto) Lymph # (Auto) [place] # (Auto) Eos # (Auto) Baso # (Auto) Abs Immat Gran (auto) Absolute Neuts (auto) Absolute Nucleated RBC Nucleated RBC % (auto) Smear Tech's Comments PT INR VBG pH VBG pCO2 VBG pO2 VBG HCO3 VBG O2 Saturation VBG Base Excess Anion Gap Estim Creat Clear Calc Estimated GFR Random Glucose Lactic Acid Calcium Magnesium Total Bilirubin AST ALT Alkaline Phosphatase Total Creatine Kinase B-Natriuretic Peptide Total Protein Albumin TSH Free T4 Urine Color Dark Yellow Urine Appearance Cloudy Urine pH 7.5 Ur Specific [place] 1.010 Urine Protein 30 (1+) H Urine Glucose (UA) Negative Urine Ketones Trace Urine Blood Small (1+) H Urine Nitrite Positive H Ur Leukocyte Esterase Large (3+) H Urine RBC 0-2 Urine WBC 11-20 H Ur Squamous Epith Cells 0-2 Urine Bacteria None Seen Hyaline Casts 3-5 Influenza Type A (PCR) Influenza Type B (PCR) RSV RNA Qual (PCR) SARS-CoV-2 RNA (RT-PCR) Assessment and Plan (1) Alcohol withdrawal: Status: Acute Plan 74M PMH 68 beats per day, hypertension, hyperlipidemia, Herrera's esophagus, GERD, fatty liver, a flutter, chronic back pain, bilateral rotator cuff repair, bladder cancer with bladder and prostate removal and ostomy, squamous cell carcinoma of scalp, restless leg syndrome presented with shortness breath cough and fever Sepsis and acute hypoxic respiratory failure secondary to pneumonia At risk for MRSA and multidrug resistant g negatives Continue vancomycin Zosyn, follow up cultures, mrsa swab Repeat CT chest Wean O2 as tolerated Alcohol dependence with withdrawal Phenobarb, CIWA Acute hypomagnesemia Replace and monitor Recent diagnosis of atrial flutter Continue apixaban, metoprolol, current in sinus Leukocytosis Due to sepsis, reported 1 episode of diarrhea and was on antibiotics we will check C diff if recurs DVT prophylaxis with apixaban Full code reason for continued hospitalization: Hypoxia and fevers Quality Stroke Does the patient have a stroke diagnosis?: No Reason for No Anti-thrombotic by Day Two: N/A - Med Ordered VTE Prior VTE?: No VTE Risk Level:: Medical - moderate - high VTE Device Contraindication: N/A - Device Ordered VTE Drug Contraindication: N/A - Med Ordered
--- NOTE | 2025-01-19 09:34 | PHA.MEDREC ---
Addendum entered by Jasen Becerra RPh 01/19/25 09:43: Reviewed by [facility] Original Note: Pharmacy Consult ? Medication Reconciliation Pharmacy has completed the medication reconciliation. Spoke to Patient and at bedside to confirm med list. had a list of patient medications with her. Patient states he finisher Azithromycin 500 mg and Cefurixime 500 mg. Patient never started Brimonidine 0.2 % drops (patient didn't have surgery yet). Patient last took his medications yesterday.
[2025-01-19] MEDS: PHENobarbitaL sodium 130 MG/ML VIAL IM Q3Hx2 233 MG IM ×2 (10:56→13:42)
[2025-01-19 11:09] LABS: MRSA Nasal PCR NEGATIVE (Negative); SA Nasal PCR NEGATIVE (Negative)
--- NOTE | 2025-01-19 12:01 | MHC.CM.PN ---
Met with patient and , Sparkle, in regards to discharge planning. Patient lives with Sparkle, ambulates independently and is active with [facility] since being d/c'd from [facility] on 01/12. Sparkle feels patient was discharged too early after boarding in the ER for over 30 hours while waiting on a bed. Sparkle stated she did not speak to the doctor about having concerns about the d/c at last visit. PCP verified. Copy of HCP obtained from [facility]. IMM explained and signed. Anticipat patient will return home with Sparkle, with resumption of VNA through [facility]. Sparkle will transport when medically stable. Patient is currently on oxygen but reports not being on oxygen at baseline. Continue to monitor for d/c needs.
--- NOTE | 2025-01-19 13:58 | PC.NURSE ---
DorisRN escorted this patient to the bathroom. Alert & oriented, ambulates steadily. Es Cruz NP met with patient and family. Continue to await admission bed assignment. Care ongoing by this RN.
--- NOTE | 2025-01-19 14:51 | HO.ADDICTCON ---
History of Present Illness Date of Service: 01/19/2025 Chief Complaint: SOB, fever Reason for Consult: AUD Sources of Information: patient interviewed and chart reviewed Additional Sources of Information: patient's HPI Narrative: Patient is a 74 year old male with history of A flutter, AUD who presented to [facility] ED with SOB and fever. Admitted with pneumonia, also concern for alcohol withdrawal sx as patient was restless and diaphoretic while in ED, so phenobarbital initiated. Of note, patient was admitted 01/10-01/12 for new onset A flutter and alcohol withdrawal. At that time, patient declined to meet with [facility]. Today, patient seen in room 18 of main ED. present in room during interview. Both he and report patient has not had any alcohol in 4 days. He reports that he drank approx 6 beers on after being discharged, but did not like the way it made him felt so he has not drank since. He reports poor sleep since being home as well. Historically, patient had been drinking several beers every day while he played on his computer, until he eventually fell asleep. Both patient and inquired about YASMIN--asking if there is anything that can help with cravings for alcohol In the past patient has declined to discuss or consider cessation of drinking, today he states he need to stop, my body can;t take it anymore He denies any withdrawal sx, and states that the phenobarbital has been helpful in letting him relax and close his eyes. He is sitting up eating lunch without issue. He does not appear diaphoretic or restless. He is very pleasant, and speaks at a high volume. 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 Discussed how alcohol use has impacted health, including negative impact on mental health and overall physical wellbeing. Discussed risk reduction strategies including drinking below the recommended limit. Review of Systems Constitutional: Reports as per HPI Gastrointestinal: Denies loose stools, Denies nausea and Denies vomiting Psychiatric: Reports abnormal sleep pattern and Reports anxiety Diagnostics Vital Signs (24Hr): Vital Signs - 24 hr 01/19/25 03:41 01/19/25 04:06 01/19/25 04:21 Temperature 98.1 F 102.6 F H Pulse Rate 87 104 H 110 H Respiratory Rate 24 H 22 H 20 Blood Pressure 151/64 H Pulse Oximetry 83 L 91 L Oxygen Delivery Method Room Air Nasal Cannula Oxygen Flow Rate 6 01/19/25 04:54 01/19/25 05:23 01/19/25 05:53 Temperature 100.9 F H 98.9 F Pulse Rate 104 H 99 114 H Respiratory Rate 24 H 24 H 20 Blood Pressure 133/63 145/58 H 134/65 Pulse Oximetry 92 91 L 94 Oxygen Delivery Method Nasal Cannula Nasal Cannula Nasal Cannula Oxygen Flow Rate 6 6 6 01/19/25 06:19 01/19/25 06:27 01/19/25 08:34 Temperature 98.5 F 98.9 F Pulse Rate 113 H 108 H 100 Respiratory Rate 20 20 Blood Pressure 149/62 H 141/55 H 143/64 H Pulse Oximetry 94 94 Oxygen Delivery Method Nasal Cannula Nasal Cannula Oxygen Flow Rate 6 6 01/19/25 09:37 01/19/25 12:13 Temperature Pulse Rate 105 H 65 Respiratory Rate 18 19 Blood Pressure 135/78 141/64 H Pulse Oximetry 94 96 Oxygen Delivery Method Nasal Cannula Oxygen Flow Rate 6 BMI result Body Mass Index 27.1 Labs 01/19/25 04:11 01/19/25 04:11 Labs: Laboratory Results - last 48 hr 01/19/25 01/19/25 01/19/25 04:11 04:14 05:19 WBC 24.2 H RBC 4.62 Hgb 13.6 L Hct 40.3 L MCV 87.2 MCH 29.4 MCHC 33.7 RDW 15.2 Plt Count 428 H D MPV 9.2 L Immature Gran % (Auto) 0.8 H Neut % (Auto) 93.3 H Lymph % (Auto) 2.1 L [place] % (Auto) 3.1 Eos % (Auto) 0.3 Baso % (Auto) 0.4 Lymph # (Auto) 0.5 L [place] # (Auto) 0.8 Eos # (Auto) 0.1 Baso # (Auto) 0.1 Abs Immat Gran (auto) 0.20 H Absolute Neuts (auto) 22.5 H Absolute Nucleated RBC 0.000 Nucleated RBC % (auto) 0.0 Smear Tech's Comments VERIFIED PT 13.0 H INR 1.1 VBG pH 7.47 H VBG pCO2 28 VBG pO2 68 VBG HCO3 21 L VBG O2 Saturation 92.0 VBG Base Excess -1.0 Sodium 135 Potassium 3.5 Chloride 102 Carbon Dioxide 19 L Anion Gap 18 BUN 10 Creatinine 0.84 Estim Creat Clear Calc 84.6 Estimated GFR > 60 Random Glucose 128 H Lactic Acid 1.7 Calcium 8.6 Magnesium 1.7 Total Bilirubin 0.5 AST 19 ALT < 6 Alkaline Phosphatase 55 Total Creatine Kinase 24 L Troponin I High Sens 9.1 B-Natriuretic Peptide 182 H Total Protein 6.9 Albumin 3.3 L TSH 5.09 H Free T4 1.07 Urine Color Urine Appearance Urine pH Ur Specific [place] Urine Protein Urine Glucose (UA) Urine Ketones Urine Blood Urine Nitrite Ur Leukocyte Esterase Urine RBC Urine WBC Ur Squamous Epith Cells Urine Bacteria Hyaline Casts Nasal Screen MRSA (PCR) Nasal S. aureus Screen Nasal MRSA/S.aureus Interp Influenza Type A (PCR) NEGATIVE Influenza Type B (PCR) NEGATIVE RSV RNA Qual (PCR) NEGATIVE SARS-CoV-2 RNA (RT-PCR) NEGATIVE 01/19/25 01/19/25 06:17 06:36 WBC RBC Hgb Hct MCV MCH MCHC RDW Plt Count MPV Immature Gran % (Auto) Neut % (Auto) Lymph % (Auto) [place] % (Auto) Eos % (Auto) Baso % (Auto) Lymph # (Auto) [place] # (Auto) Eos # (Auto) Baso # (Auto) Abs Immat Gran (auto) Absolute Neuts (auto) Absolute Nucleated RBC Nucleated RBC % (auto) Smear Tech's Comments PT INR VBG pH VBG pCO2 VBG pO2 VBG HCO3 VBG O2 Saturation VBG Base Excess Sodium Potassium Chloride Carbon Dioxide Anion Gap BUN Creatinine Estim Creat Clear Calc Estimated GFR Random Glucose Lactic Acid Calcium Magnesium Total Bilirubin AST ALT Alkaline Phosphatase Total Creatine Kinase Troponin I High Sens B-Natriuretic Peptide Total Protein Albumin TSH Free T4 Urine Color Dark Yellow Urine Appearance Cloudy Urine pH 7.5 Ur Specific [place] 1.010 Urine Protein 30 (1+) H Urine Glucose (UA) Negative Urine Ketones Trace Urine Blood Small (1+) H Urine Nitrite Positive H Ur Leukocyte Esterase Large (3+) H Urine RBC 0-2 Urine WBC 11-20 H Ur Squamous Epith Cells 0-2 Urine Bacteria None Seen Hyaline Casts 3-5 Nasal Screen MRSA (PCR) NEGATIVE Nasal S. aureus Screen NEGATIVE Nasal MRSA/S.aureus Interp SEE NOTE Influenza Type A (PCR) Influenza Type B (PCR) RSV RNA Qual (PCR) SARS-CoV-2 RNA (RT-PCR) Imaging Radiology Impressions: ITS Impressions Chest CT 01/19/25 09:10 IMPRESSION: Progression of interstitial and groundglass opacities in the right lower lobe consistent with pneumonia. Electronically signed by: Delfin Guerrero MD 01/19/2025 09:37 AM EDT RP Mental Status Exam Mental Status Exam Patient Appearance: Appropriate Level of Consciousness: Awake, Appropriate and Alert Patient Behavior: Appropriate and Talkative Mood Description: Calm Affect Description: Appropriate Speech Pattern: Clear and Animated Hallucinations: None Thought Content: positive for Intact Judgement: Fair Medications Medications Current Medications Acetaminophen (Acetaminophen 325 Mg Tablet) 650 mg PO Q6H PRN PRN Reason: Pain, Mild 1-3,fever,headache Albuterol/Ipratropium (Albuterol/Iprat 2.5/0.5mg 3 Ml Ampul.Neb) 3 ml INHALE Q4H PRN PRN Reason: Shortness of Breath/Wheezing Apixaban (Apixaban 5 Mg Tablet) 5 mg PO BID [facility] Last Admin: 01/19/25 08:34 Dose: 5 mg Calcium Carbonate (Calcium Carbonate 750 Mg Tab.Chew) 750 mg PO Q4H PRN PRN Reason: Heartburn Folic Acid (Folic Acid 1 Mg Tablet) 1 mg PO DAILY [facility] Last Admin: 01/19/25 08:34 Dose: 1 mg Piperacillin Sod/Tazobactam (Sod 3.375 gm/ Sodium Chloride) 50 mls @ 100 mls/hr IV Q6H [facility] Last Admin: 01/19/25 13:22 Dose: 100 mls/hr Vancomycin HCl 1,000 mg/ (Sodium Chloride) 270 mls @ 270 mls/hr IV Q12H [facility] Magnesium Hydroxide (Milk Of Magnesia 30 Ml Oral.Susp) 30 ml PO DAILY PRN PRN Reason: Constipation Melatonin (Melatonin 3 Mg Tablet) 6 mg PO BEDTIME PRN PRN Reason: Insomnia Metoprolol Succinate (Metoprolol Succinate Er 50 Mg Tab.Er.24h) 50 mg PO DAILY [facility]; Protocol Last Admin: 01/19/25 08:34 Dose: 50 mg Ondansetron HCl (Ondansetron Hcl 4 Mg/2 Ml Vial) 4 mg IVPUSH Q8H PRN PRN Reason: Nausea and Vomiting Pharmacy Consult (Consult Rx Vancomycin Dosing) 1 each MISCELLANE DAILY PRN PRN Reason: Consult order Pharmacy Consult (Consult Rx Etoh Phenob Im/Po) 1 each MISCELLANE ONCE PRN; Protocol PRN Reason: Consult order Phenobarbital (Phenobarbital 30 Mg Tablet) 60 mg PO BID [facility] Stop: 01/21/25 09:01 Phenobarbital (Phenobarbital 30 Mg Tablet) 30 mg PO BID [facility] Stop: 01/23/25 09:01 Phenobarbital (Phenobarbital 30 Mg Tablet) 30 mg PO BEDTIME [facility] Stop: 01/24/25 21:01 Senna (Sennosides 8.6 Mg Tablet) 17.2 mg PO BEDTIME [facility] Sodium Chloride (0.9 % Sodium Chloride Flush 3 Ml Syringe) 3 ml IVFLUSH QSHIFT [facility] Last Admin: 01/19/25 07:19 Dose: Not Given Thiamine HCl (Thiamine Hcl 100 Mg Tablet) 100 mg PO DAILY [facility] Last Admin: 01/19/25 08:34 Dose: 100 mg Allergies Allergies Allergy/AdvReac Type Severity Reaction Status Date / Time benazepril Allergy Mild Unknown Uncoded 01/19/25 03:53 Assessment & Plan Assessment & Plan (1) Alcohol use disorder: Status: Acute Code(s): F10.90 - Alcohol use, unspecified, uncomplicated Assessment and Plan: interested in YASMIN --will follow up in AM with education and discuss options further. Briefly discussed naltrexone today (2) Alcohol withdrawal: Qualifiers: Complication of substance-induced condition: uncomplicated Qualified Code(s): F10.930 - Alcohol use, unspecified with withdrawal, uncomplicated Status: Acute Code(s): F10.939 - Alcohol use, unspecified with withdrawal, unspecified Assessment and Plan: phenobarbital taper, thiamine and folic acid in place Total time managing care of this patient today __35__ minutes. PMFSH Past Medical History Medical History (Updated 01/19/25 @ 15:22 by Es Cruz CNP) Tongue cancer Bladder cancer Alcohol use disorder HTN (hypertension) Surgical History Surgical History H/O prostatectomy Hx of total cystectomy History of bladder surgery (Unknown) Hx of shoulder surgery (Unknown) Hx of shoulder surgery (Unknown) Social History Social History Household Members: Spouse Housing: House Do you presently have visiting nurse or other home services: No Alcohol intake: former Patient Tobacco Use Status: Never used Tobacco Smoked in Last 30 Days: No e-Cigarette/Vaping Use: Never Used Second Hand Smoke Exposure: No Use of substances other than those prescribed or required for medical reasons: No Advance Directives: Yes Advance Directives on File: Yes Advance Directives Date on File: 01/19/25 Do you have a plan to hurt others: No Plan service: No Current occupational status: retired 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
[2025-01-19] MEDS: vancomycin HCL 1,000 MG in 0.9 % Sodium Chloride 250 ML 270 MG IV (18:38)
[2025-01-19 20:35] LABS: Glucose, Whole Blood 117 mg/dL (60-115)
[2025-01-19] MEDS: Sennosides 8.6 MG TABLET 17.2 MG PO (20:55)
[2025-01-19] MEDS: Melatonin 3 MG TABLET 6 MG PO (20:55)
[2025-01-19] MEDS: Benzonatate 100 MG CAPSULE 200 MG PO (20:55)
[2025-01-19] MEDS: PHENobarbitaL 30 MG TABLET 60 MG PO (20:56)
[2025-01-19] MEDS: 0.9 % Sodium Chloride Flush 3 ML SYRINGE IVFLUSH (20:59)
[2025-01-20] MEDS: Piperacillin Sodium/Tazobactam 3.375 GM in 0.9 % Sodium Chloride 50 ML IV ×4 (02:52→20:18)
[2025-01-20 03:57] VITALS: BP 128/59; PULSE 60; RESP 20; TEMP 36.4; O2SAT 96
[2025-01-20 05:45] LABS: MANUAL DIFF FLAG NO
[2025-01-20 05:47] LABS: Basophils Absolute Auto 0.1 X10*3/uL (0.0-0.2); Basophils Percent Auto 0.6 % (0-2); Eosinophils Absolute Auto 0.1 X10*3/uL (0.0-0.4); Eosinophils Percent Auto 0.7 % (0-4); Hematocrit 39.3 % (42.0-52.0); Imm Gran Abs Auto 0.14 X10*3/uL (0.00-0.03); Imm Gran Pct Auto 0.7 % (0.0-0.4); Lymphocytes Absolute Auto 1.2 X10*3/uL (1.2-4.9); Lymphocytes Percent Auto 5.5 % (20-40); Mean Corpuscular HGB Conc 33.1 g/dl (31.0-36.0); Mean Corpuscular Hemoglobin 29.8 pg (27.0-33.0); Mean Corpuscular Volume 90.1 fL (80.0-98.0); Mean Platelet Volume 9.2 fL (9.4-12.4); Monocytes Absolute Auto 0.9 X10*3/uL (0.1-1.2); Monocytes Percent Auto 4.2 % (2-11); Neutrophils Absolute Auto 18.6 x10*3/uL (2.0-8.3); Neutrophils Percent Auto 88.3 % (45-73); Platelet Count 396 X10*3/uL (160-400); Red Blood Count 4.36 X10*6/uL (4.60-5.80); Red Cell Distribution Width 15.6 % (11.0-16.0); White Blood Count 21.1 X10*3/uL (4.8-10.8)
[2025-01-20 06:00] VITALS: BMI 30.1
[2025-01-20 06:06] LABS: Anion Gap 10 (12-20); Blood Urea Nitrogen 13 mg/dL (9-16); Calcium 8.5 mg/dL (8.4-10.2); Carbon Dioxide 26 mmol/L (22-29); Chloride 109 mmol/L (96-108); Creatinine Clr Calc Pharmacy 99.5; Estimated Glomerular Filt Rate > 60; Glucose Random 118 mg/dL (60-115); Potassium 4.1 mmol/L (3.3-5.1); Sodium 141 mmol/L (135-145)
[2025-01-20 06:15] LABS: Alanine Aminotransferase < 6 U/L (0-40); Alkaline Phosphatase 44 U/L (39-117); Anion Gap 11 (12-20); Aspartate Amino Transferase 26 U/L (5-37); Bilirubin Total 0.3 mg/dL (0.0-1.0); Blood Urea Nitrogen 12 mg/dL (9-16); Calcium 8.6 mg/dL (8.4-10.2); Carbon Dioxide 24 mmol/L (22-29); Chloride 109 mmol/L (96-108); Creatinine Clr Calc Pharmacy 100.7; Estimated Glomerular Filt Rate > 60; Glucose Random 118 mg/dL (60-115); Potassium 3.9 mmol/L (3.3-5.1); Sodium 140 mmol/L (135-145); Total Protein 6.2 g/dL (6.5-8.0)
[2025-01-20 08:00] VITALS: BP 138/64; PULSE 73; RESP 20; TEMP 37.1; O2SAT 94
[2025-01-20] MEDS: Apixaban 5 MG TABLET PO ×2 (08:39→20:18)
[2025-01-20] MEDS: Metoprolol Succinate ER 50 MG TAB.ER.24H PO (08:39)
[2025-01-20] MEDS: Thiamine HCL 100 MG TABLET PO (08:39)
[2025-01-20] MEDS: PHENobarbitaL 30 MG TABLET 60 MG PO ×2 (08:39→20:18)
[2025-01-20] MEDS: Folic Acid 1 MG TABLET PO (08:39)
[2025-01-20] MEDS: 0.9 % Sodium Chloride Flush 3 ML SYRINGE IVFLUSH ×3 (08:40→20:19)
[2025-01-20] MEDS: Benzonatate 100 MG CAPSULE 200 MG PO ×2 (08:45→16:15)
--- NOTE | 2025-01-20 10:53 | HO.PM.IMPN ---
Subjective Subjective Date of Service: 01/20/25 Interval History: cough, sob Physical Exam Vital Signs: Vital Signs: Last Vital Signs Temp 98.7 F 01/20/25 08:00 Pulse 73 01/20/25 08:00 Resp 20 01/20/25 08:00 BP 138/64 01/20/25 08:00 Pulse Ox 94 01/20/25 08:00 O2 Del Method Nasal Cannula 01/20/25 08:00 O2 Flow Rate 4 01/20/25 08:00 BMI result Body Mass Index 30.1 General: AO X 3, no acute distress Resp: right basilar crackles, no accessory muscles used CVS: S1,S2,RRR GI: soft, non tender, non distended Neuro: motor grossly intact, alert Psych: appropriate affect, appropriate insight Objective Data Active Medications Acetaminophen (Acetaminophen 325 Mg Tablet) 650 mg PO Q6H PRN PRN Reason: Pain, Mild 1-3,fever,headache Albuterol/Ipratropium (Albuterol/Iprat 2.5/0.5mg 3 Ml Ampul.Neb) 3 ml INHALE Q4H PRN PRN Reason: Shortness of Breath/Wheezing Apixaban (Apixaban 5 Mg Tablet) 5 mg PO BID [facility] Last Admin: 01/20/25 08:39 Dose: 5 mg Documented By: KARO Benzocaine (Throat Lozenge, Medicated Lozenge) 1 lozenge MUCOUS MEM Q2H PRN PRN Reason: Sore Throat Benzonatate (Benzonatate 100 Mg Capsule) 200 mg PO TID PRN PRN Reason: Cough Last Admin: 01/20/25 08:45 Dose: 200 mg Documented By: KARO Calcium Carbonate (Calcium Carbonate 750 Mg Tab.Chew) 750 mg PO Q4H PRN PRN Reason: Heartburn Folic Acid (Folic Acid 1 Mg Tablet) 1 mg PO DAILY [facility] Last Admin: 01/20/25 08:39 Dose: 1 mg Documented By: KARO Piperacillin Sod/Tazobactam (Sod 3.375 gm/ Sodium Chloride) 50 mls @ 100 mls/hr IV Q6H [facility] Last Admin: 01/20/25 08:39 Dose: 100 mls/hr Documented By: KARO Magnesium Hydroxide (Milk Of Magnesia 30 Ml Oral.Susp) 30 ml PO DAILY PRN PRN Reason: Constipation Melatonin (Melatonin 3 Mg Tablet) 6 mg PO BEDTIME PRN PRN Reason: Insomnia Last Admin: 01/19/25 20:55 Dose: 6 mg Documented By: AUBREY Metoprolol Succinate (Metoprolol Succinate Er 50 Mg Tab.Er.24h) 50 mg PO DAILY [facility]; Protocol Last Admin: 01/20/25 08:39 Dose: 50 mg Documented By: KARO Ondansetron HCl (Ondansetron Hcl 4 Mg/2 Ml Vial) 4 mg IVPUSH Q8H PRN PRN Reason: Nausea and Vomiting Pharmacy Consult (Consult Rx Etoh Phenob Im/Po) 1 each MISCELLANE ONCE PRN; Protocol PRN Reason: Consult order Phenobarbital (Phenobarbital 30 Mg Tablet) 60 mg PO BID [facility] Stop: 01/21/25 09:01 Last Admin: 01/20/25 08:39 Dose: 60 mg Documented By: KARO Phenobarbital (Phenobarbital 30 Mg Tablet) 30 mg PO BID [facility] Stop: 01/23/25 09:01 Phenobarbital (Phenobarbital 30 Mg Tablet) 30 mg PO BEDTIME [facility] Stop: 01/24/25 21:01 Senna (Sennosides 8.6 Mg Tablet) 17.2 mg PO BEDTIME [facility] Last Admin: 01/19/25 20:55 Dose: 17.2 mg Documented By: AUBREY Sodium Chloride (0.9 % Sodium Chloride Flush 3 Ml Syringe) 3 ml IVFLUSH QSHIFT [facility] Last Admin: 01/20/25 08:40 Dose: 3 ml Documented By: KARO Thiamine HCl (Thiamine Hcl 100 Mg Tablet) 100 mg PO DAILY [facility] Last Admin: 01/20/25 08:39 Dose: 100 mg Documented By: KARO Labs 01/20/25 05:25 01/20/25 05:25 Labs: Laboratory Results - last 24 hr 01/19/25 01/19/25 01/19/25 06:17 06:36 20:12 MCV MCH MCHC RDW Plt Count MPV Immature Gran % (Auto) Neut % (Auto) Lymph % (Auto) [place] % (Auto) Eos % (Auto) Baso % (Auto) Lymph # (Auto) [place] # (Auto) Eos # (Auto) Baso # (Auto) Abs Immat Gran (auto) Absolute Neuts (auto) Absolute Nucleated RBC Nucleated RBC % (auto) Anion Gap Estim Creat Clear Calc Estimated GFR POC Glucose 117 H Random Glucose Calcium Total Bilirubin AST ALT Alkaline Phosphatase Total Protein Albumin Urine Color Dark Yellow Urine Appearance Cloudy Urine pH 7.5 Ur Specific [place] 1.010 Urine Protein 30 (1+) H Urine Glucose (UA) Negative Urine Ketones Trace Urine Blood Small (1+) H Urine Nitrite Positive H Ur Leukocyte Esterase Large (3+) H Urine RBC 0-2 Urine WBC 11-20 H Urine WBC Clumps [employer] Ur Squamous Epith Cells 0-2 Ur Transition Epith Cell [employer] Ur Renal Epithelial Cell [facility] [employer]YSICS Calcium Oxalate Crystal HEAD OF PHYSICS Leucine Crystals HEAD OF PHYSICS Cystine Crystals HEAD OF PHYSICS Tyrosine Crystals HEAD OF PHYSICS Other Crystals HEAD OF PHYSICS Urine Bacteria None Seen Urine Parasites HEAD OF PHYSICS Bilirubin Casts HEAD OF PHYSICS Epithelial Casts HEAD OF PHYSICS Fatty Casts HEAD OF PHYSICS Hyaline Casts 3-5 Granular Casts HEAD OF PHYSICS Waxy Casts HEAD OF PHYSICS Broad Casts HEAD OF PHYSICS RBC Casts HEAD OF PHYSICS WBC Casts HEAD OF PHYSICS Other Casts HEAD OF PHYSICS Urine Trichomonas [facility] [employer] [facility] Urine Yeast [facility] [employer] [facility] Nasal Screen MRSA (PCR) NEGATIVE Nasal S. aureus Screen NEGATIVE Nasal MRSA/S.aureus Interp SEE NOTE 01/20/25 01/20/25 01/20/25 05:25 05:25 05:25 MCV 90.1 MCH 29.8 MCHC 33.1 RDW 15.6 Plt Count 396 MPV 9.2 L Immature Gran % (Auto) 0.7 H Neut % (Auto) 88.3 H Lymph % (Auto) 5.5 L [place] % (Auto) 4.2 Eos % (Auto) 0.7 Baso % (Auto) 0.6 Lymph # (Auto) 1.2 [place] # (Auto) 0.9 Eos # (Auto) 0.1 Baso # (Auto) 0.1 Abs Immat Gran (auto) 0.14 H Absolute Neuts (auto) 18.6 H Absolute Nucleated RBC 0.000 Nucleated RBC % (auto) 0.0 Anion Gap 11 L 10 L Estim Creat Clear Calc 100.7 99.5 Estimated GFR > 60 POC Glucose Random Glucose Calcium Total Bilirubin AST ALT Alkaline Phosphatase Total Protein Albumin Urine Color Urine Appearance Urine pH Ur Specific [place] Urine Protein Urine Glucose (UA) Urine Ketones Urine Blood Urine Nitrite Ur Leukocyte Esterase Urine RBC Urine WBC Urine WBC Clumps Ur Squamous Epith Cells Ur Transition Epith Cell Ur Renal Epithelial Cell Calcium Oxalate Crystal Leucine Crystals Cystine Crystals Tyrosine Crystals Other Crystals Urine Bacteria Urine Parasites Bilirubin Casts Epithelial Casts Fatty Casts Hyaline Casts Granular Casts Waxy Casts Broad Casts RBC Casts WBC Casts Other Casts Urine Trichomonas Urine Yeast Nasal Screen MRSA (PCR) Nasal S. aureus Screen Nasal MRSA/S.aureus Interp 01/20/25 01/20/25 01/20/25 05:25 05:25 05:25 MCV MCH MCHC RDW Plt Count MPV Immature Gran % (Auto) Neut % (Auto) Lymph % (Auto) [place] % (Auto) Eos % (Auto) Baso % (Auto) Lymph # (Auto) [place] # (Auto) Eos # (Auto) Baso # (Auto) Abs Immat Gran (auto) Absolute Neuts (auto) Absolute Nucleated RBC Nucleated RBC % (auto) Anion Gap Estim Creat Clear Calc Estimated GFR > 60 POC Glucose Random Glucose 118 H 118 H Calcium 8.6 8.5 Total Bilirubin 0.3 AST 26 ALT < 6 Alkaline Phosphatase 44 Total Protein 6.2 L Albumin 3.0 L Urine Color Urine Appearance Urine pH Ur Specific [place] Urine Protein Urine Glucose (UA) Urine Ketones Urine Blood Urine Nitrite Ur Leukocyte Esterase Urine RBC Urine WBC Urine WBC Clumps Ur Squamous Epith Cells Ur Transition Epith Cell Ur Renal Epithelial Cell Calcium Oxalate Crystal Leucine Crystals Cystine Crystals Tyrosine Crystals Other Crystals Urine Bacteria Urine Parasites Bilirubin Casts Epithelial Casts Fatty Casts Hyaline Casts Granular Casts Waxy Casts Broad Casts RBC Casts WBC Casts Other Casts Urine Trichomonas Urine Yeast Nasal Screen MRSA (PCR) Nasal S. aureus Screen Nasal MRSA/S.aureus Interp Microbiology Microbiology Results: Microbiology 01/19/25 05:19 Blood Culture - Preliminary Blood - Venous No growth after 24 hours. 01/19/25 05:18 Blood Culture - Preliminary Blood - Venous No growth after 24 hours. Assessment and Plan (1) Alcohol withdrawal: Status: Resolved Plan 74M PMH 68 beats per day, hypertension, hyperlipidemia, Herrera's esophagus, GERD, fatty liver, a flutter, chronic back pain, bilateral rotator cuff repair, bladder cancer with bladder and prostate removal and ostomy, squamous cell carcinoma of scalp, restless leg syndrome presented with shortness breath cough and fever Sepsis and acute hypoxic respiratory failure secondary to RLL pneumonia MRSA swab negative - vanc dced at risk for multidrug resistant g negatives Continue Zosyn, follow up cultures Wean O2 as tolerated Alcohol dependence with withdrawal Phenobarb, CIWA Acute hypomagnesemia Replace and monitor Recent diagnosis of atrial flutter Continue apixaban, metoprolol, currently in sinus DVT prophylaxis with apixaban Full code reason for continued hospitalization: Hypoxia and fevers Quality Stroke Does the patient have a stroke diagnosis?: No Reason for No Anti-thrombotic by Day Two: N/A - Med Ordered VTE Prior VTE?: No VTE Risk Level:: Medical - moderate - high VTE Device Contraindication: N/A - Device Ordered VTE Drug Contraindication: N/A - Med Ordered
[2025-01-20 11:32] VITALS: BP 114/54; PULSE 75; RESP 20; TEMP 36.7; O2SAT 89
--- NOTE | 2025-01-20 12:59 | MHC.CM.PN ---
EMR reviewed and per MD rounds, pt is not medically cleared for discharge at this time due to management pneumonia with hypoxia, and awaiting blood cultures.
[2025-01-20 15:34] VITALS: BP 130/57; PULSE 72; RESP 18; TEMP 36.7; O2SAT 96
[2025-01-20 20:00] VITALS: BP 135/63; PULSE 72; RESP 16; TEMP 37; O2SAT 92
[2025-01-20] MEDS: Melatonin 3 MG TABLET 6 MG PO (20:18)
[2025-01-20 23:54] VITALS: BP 133/59; PULSE 64; RESP 16; TEMP 36.6; O2SAT 95
[2025-01-21] MEDS: Benzonatate 100 MG CAPSULE 200 MG PO ×4 (02:38→20:52)
[2025-01-21] MEDS: Piperacillin Sodium/Tazobactam 3.375 GM in 0.9 % Sodium Chloride 50 ML IV ×4 (02:38→20:28)
[2025-01-21 04:00] VITALS: BP 126/56; PULSE 68; RESP 16; TEMP 36.2; O2SAT 93
[2025-01-21 06:00] VITALS: BMI 30.6
[2025-01-21 07:17] LABS: Hematocrit 38.4 % (42.0-52.0); Hemoglobin 12.4 g/dl (14.0-18.0); Mean Corpuscular HGB Conc 32.3 g/dl (31.0-36.0); Mean Corpuscular Hemoglobin 29.2 pg (27.0-33.0); Mean Corpuscular Volume 90.4 fL (80.0-98.0); Mean Platelet Volume 9.2 fL (9.4-12.4); Platelet Count 452 X10*3/uL (160-400); Red Blood Count 4.25 X10*6/uL (4.60-5.80); Red Cell Distribution Width 15.6 % (11.0-16.0); White Blood Count 13.7 X10*3/uL (4.8-10.8)
[2025-01-21 07:25] LABS: Anion Gap 10 (12-20); Blood Urea Nitrogen 13 mg/dL (9-16); Calcium 8.1 mg/dL (8.4-10.2); Carbon Dioxide 24 mmol/L (22-29); Chloride 109 mmol/L (96-108); Creatinine Clr Calc Pharmacy 108.3; Estimated Glomerular Filt Rate > 60; Glucose Random 91 mg/dL (60-115); Magnesium 2.1 mg/dL (1.6-2.6); Potassium 3.9 mmol/L (3.3-5.1); Sodium 139 mmol/L (135-145)
[2025-01-21 07:34] VITALS: BP 151/64; PULSE 70; RESP 20; TEMP 36.6; O2SAT 94
[2025-01-21] MEDS: Metoprolol Succinate ER 50 MG TAB.ER.24H PO (08:23)
[2025-01-21] MEDS: Folic Acid 1 MG TABLET PO (08:23)
[2025-01-21] MEDS: Apixaban 5 MG TABLET PO ×2 (08:23→20:53)
[2025-01-21] MEDS: PHENobarbitaL 30 MG TABLET 60 MG PO (08:23)
[2025-01-21] MEDS: Thiamine HCL 100 MG TABLET PO (08:23)
[2025-01-21] MEDS: Throat Lozenge, Medicated LOZENGE 1 LOZENGE MUCOUS MEM (08:24)
--- NOTE | 2025-01-21 10:22 | P.PNADD_ITS ---
Subjective Subjective Date of Service: 01/21/25 Reason For Visit: SOB, fever Interim History: Patient seen in follow up for AUD present during interview. Denies any withdrawal sx Completing pheno taper Discussed YASMIN, questions answered Patient hesitant to trial medication, requesting instead to have script sent to his pharmacy so he can have it at home Review of Systems Constitutional: Reports as per HPI Gastrointestinal: Denies loose stools and Denies nausea Mental Status Exam Mental Status Exam Level of Consciousness: Awake, Appropriate and Alert Patient Behavior: Appropriate and Talkative Mood Description: Calm Affect Description: Calm and Appropriate Speech Pattern: Clear Hallucinations: None Thought Content: positive for Intact Judgement: Good Diagnostics Vital Signs (24Hr): Vital Signs - 24 hr 01/20/25 11:32 01/20/25 15:34 01/20/25 20:00 Temperature 98.1 F 98.1 F 98.6 F Pulse Rate 75 72 72 Respiratory Rate 20 18 16 Blood Pressure 114/54 L 130/57 L 135/63 Pulse Oximetry 89 L 96 92 Oxygen Delivery Method Nasal Cannula Room Air Nasal Cannula Oxygen Flow Rate 4 4 01/20/25 23:54 01/21/25 04:00 01/21/25 07:34 Temperature 97.8 F 97.2 F 97.8 F Pulse Rate 64 68 70 Respiratory Rate 16 16 20 Blood Pressure 133/59 L 126/56 L 151/64 H Pulse Oximetry 95 93 94 Oxygen Delivery Method Nasal Cannula Nasal Cannula Nasal Cannula Oxygen Flow Rate 4 4 4 BMI result Body Mass Index 30.6 Labs 01/21/25 06:59 01/21/25 06:59 Labs: Laboratory Results - last 48 hr 01/19/25 01/19/25 01/19/25 06:17 06:36 20:12 WBC RBC Hgb Hct MCV MCH MCHC RDW Plt Count MPV Immature Gran % (Auto) Neut % (Auto) Lymph % (Auto) [place] % (Auto) Eos % (Auto) Baso % (Auto) Lymph # (Auto) [place] # (Auto) Eos # (Auto) Baso # (Auto) Abs Immat Gran (auto) Absolute Neuts (auto) Absolute Nucleated RBC Nucleated RBC % (auto) Sodium Potassium Chloride Carbon Dioxide Anion Gap BUN Creatinine Estim Creat Clear Calc Estimated GFR POC Glucose 117 H Random Glucose Calcium Magnesium Total Bilirubin AST ALT Alkaline Phosphatase Total Protein Albumin Urine Color Dark Yellow Urine Appearance Cloudy Urine pH 7.5 Ur Specific [place] 1.010 Urine Protein 30 (1+) H Urine Glucose (UA) Negative Urine Ketones Trace Urine Blood Small (1+) H Urine Nitrite Positive H Ur Leukocyte Esterase Large (3+) H Urine RBC 0-2 Urine WBC 11-20 H Urine WBC Clumps SENIOR SCHEDULER Ur Squamous Epith Cells 0-2 Ur Transition Epith Cell SENIOR SCHEDULER Ur Renal Epithelial Cell SENIOR SCHEDULER Calcium Oxalate Crystal SENIOR SCHEDULER Leucine Crystals SENIOR SCHEDULER Cystine Crystals SENIOR SCHEDULER Tyrosine Crystals SENIOR SCHEDULER Other Crystals SENIOR SCHEDULER Urine Bacteria None Seen Urine Parasites SENIOR SCHEDULER Bilirubin Casts SENIOR SCHEDULER Epithelial Casts SENIOR SCHEDULER Fatty Casts SENIOR SCHEDULER Hyaline Casts 3-5 Granular Casts SENIOR SCHEDULER Waxy Casts SENIOR SCHEDULER Broad Casts SENIOR SCHEDULER RBC Casts SENIOR SCHEDULER WBC Casts SENIOR SCHEDULER Other Casts SENIOR SCHEDULER Urine Trichomonas SENIOR SCHEDULER Urine Yeast SENIOR SCHEDULER Nasal Screen MRSA (PCR) NEGATIVE Nasal S. aureus Screen NEGATIVE Nasal MRSA/S.aureus Interp SEE NOTE 01/20/25 01/20/25 01/20/25 05:25 05:25 05:25 WBC 21.1 H RBC 4.36 L Hgb 13.0 L Hct 39.3 L MCV 90.1 MCH 29.8 MCHC 33.1 RDW 15.6 Plt Count 396 MPV 9.2 L Immature Gran % (Auto) 0.7 H Neut % (Auto) 88.3 H Lymph % (Auto) 5.5 L [place] % (Auto) 4.2 Eos % (Auto) 0.7 Baso % (Auto) 0.6 Lymph # (Auto) 1.2 [place] # (Auto) 0.9 Eos # (Auto) 0.1 Baso # (Auto) 0.1 Abs Immat Gran (auto) 0.14 H Absolute Neuts (auto) 18.6 H Absolute Nucleated RBC 0.000 Nucleated RBC % (auto) 0.0 Sodium 140 141 Potassium 3.9 4.1 Chloride 109 H Carbon Dioxide Anion Gap BUN Creatinine Estim Creat Clear Calc Estimated GFR POC Glucose Random Glucose Calcium Magnesium Total Bilirubin AST ALT Alkaline Phosphatase Total Protein Albumin Urine Color Urine Appearance Urine pH Ur Specific [place] Urine Protein Urine Glucose (UA) Urine Ketones Urine Blood Urine Nitrite Ur Leukocyte Esterase Urine RBC Urine WBC Urine WBC Clumps Ur Squamous Epith Cells Ur Transition Epith Cell Ur Renal Epithelial Cell Calcium Oxalate Crystal Leucine Crystals Cystine Crystals Tyrosine Crystals Other Crystals Urine Bacteria Urine Parasites Bilirubin Casts Epithelial Casts Fatty Casts Hyaline Casts Granular Casts Waxy Casts Broad Casts RBC Casts WBC Casts Other Casts Urine Trichomonas Urine Yeast Nasal Screen MRSA (PCR) Nasal S. aureus Screen Nasal MRSA/S.aureus Interp 01/20/25 01/20/25 01/20/25 05:25 05:25 05:25 WBC RBC Hgb Hct MCV MCH MCHC RDW Plt Count MPV Immature Gran % (Auto) Neut % (Auto) Lymph % (Auto) [place] % (Auto) Eos % (Auto) Baso % (Auto) Lymph # (Auto) [place] # (Auto) Eos # (Auto) Baso # (Auto) Abs Immat Gran (auto) Absolute Neuts (auto) Absolute Nucleated RBC Nucleated RBC % (auto) Sodium Potassium Chloride 109 H Carbon Dioxide 24 26 Anion Gap 11 L 10 L BUN 12 Creatinine Estim Creat Clear Calc Estimated GFR POC Glucose Random Glucose Calcium Magnesium Total Bilirubin AST ALT Alkaline Phosphatase Total Protein Albumin Urine Color Urine Appearance Urine pH Ur Specific [place] Urine Protein Urine Glucose (UA) Urine Ketones Urine Blood Urine Nitrite Ur Leukocyte Esterase Urine RBC Urine WBC Urine WBC Clumps Ur Squamous Epith Cells Ur Transition Epith Cell Ur Renal Epithelial Cell Calcium Oxalate Crystal Leucine Crystals Cystine Crystals Tyrosine Crystals Other Crystals Urine Bacteria Urine Parasites Bilirubin Casts Epithelial Casts Fatty Casts Hyaline Casts Granular Casts Waxy Casts Broad Casts RBC Casts WBC Casts Other Casts Urine Trichomonas Urine Yeast Nasal Screen MRSA (PCR) Nasal S. aureus Screen Nasal MRSA/S.aureus Interp 01/20/25 01/20/25 01/20/25 05:25 05:25 05:25 WBC RBC Hgb Hct MCV MCH MCHC RDW Plt Count MPV Immature Gran % (Auto) Neut % (Auto) Lymph % (Auto) [place] % (Auto) Eos % (Auto) Baso % (Auto) Lymph # (Auto) [place] # (Auto) Eos # (Auto) Baso # (Auto) Abs Immat Gran (auto) Absolute Neuts (auto) Absolute Nucleated RBC Nucleated RBC % (auto) Sodium Potassium Chloride Carbon Dioxide Anion Gap BUN 13 Creatinine 0.79 0.80 Estim Creat Clear Calc 100.7 99.5 Estimated GFR > 60 POC Glucose Random Glucose Calcium Magnesium Total Bilirubin AST ALT Alkaline Phosphatase Total Protein Albumin Urine Color Urine Appearance Urine pH Ur Specific [place] Urine Protein Urine Glucose (UA) Urine Ketones Urine Blood Urine Nitrite Ur Leukocyte Esterase Urine RBC Urine WBC Urine WBC Clumps Ur Squamous Epith Cells Ur Transition Epith Cell Ur Renal Epithelial Cell Calcium Oxalate Crystal Leucine Crystals Cystine Crystals Tyrosine Crystals Other Crystals Urine Bacteria Urine Parasites Bilirubin Casts Epithelial Casts Fatty Casts Hyaline Casts Granular Casts Waxy Casts Broad Casts RBC Casts WBC Casts Other Casts Urine Trichomonas Urine Yeast Nasal Screen MRSA (PCR) Nasal S. aureus Screen Nasal MRSA/S.aureus Interp 01/20/25 01/20/25 01/20/25 05:25 05:25 05:25 WBC RBC Hgb Hct MCV MCH MCHC RDW Plt Count MPV Immature Gran % (Auto) Neut % (Auto) Lymph % (Auto) [place] % (Auto) Eos % (Auto) Baso % (Auto) Lymph # (Auto) [place] # (Auto) Eos # (Auto) Baso # (Auto) Abs Immat Gran (auto) Absolute Neuts (auto) Absolute Nucleated RBC Nucleated RBC % (auto) Sodium Potassium Chloride Carbon Dioxide Anion Gap BUN Creatinine Estim Creat Clear Calc Estimated GFR > 60 POC Glucose Random Glucose 118 H 118 H Calcium 8.6 8.5 Magnesium Total Bilirubin 0.3 AST 26 ALT < 6 Alkaline Phosphatase 44 Total Protein 6.2 L Albumin 3.0 L Urine Color Urine Appearance Urine pH Ur Specific [place] Urine Protein Urine Glucose (UA) Urine Ketones Urine Blood Urine Nitrite Ur Leukocyte Esterase Urine RBC Urine WBC Urine WBC Clumps Ur Squamous Epith Cells Ur Transition Epith Cell Ur Renal Epithelial Cell Calcium Oxalate Crystal Leucine Crystals Cystine Crystals Tyrosine Crystals Other Crystals Urine Bacteria Urine Parasites Bilirubin Casts Epithelial Casts Fatty Casts Hyaline Casts Granular Casts Waxy Casts Broad Casts RBC Casts WBC Casts Other Casts Urine Trichomonas Urine Yeast Nasal Screen MRSA (PCR) Nasal S. aureus Screen Nasal MRSA/S.aureus Interp 01/21/25 06:59 WBC 13.7 H RBC 4.25 L Hgb 12.4 L Hct 38.4 L MCV 90.4 MCH 29.2 MCHC 32.3 RDW 15.6 Plt Count 452 H MPV 9.2 L Immature Gran % (Auto) Neut % (Auto) Lymph % (Auto) [place] % (Auto) Eos % (Auto) Baso % (Auto) Lymph # (Auto) [place] # (Auto) Eos # (Auto) Baso # (Auto) Abs Immat Gran (auto) Absolute Neuts (auto) Absolute Nucleated RBC 0.000 Nucleated RBC % (auto) 0.0 Sodium 139 Potassium 3.9 Chloride 109 H Carbon Dioxide 24 Anion Gap 10 L BUN 13 Creatinine 0.74 Estim Creat Clear Calc 108.3 Estimated GFR > 60 POC Glucose Random Glucose 91 Calcium 8.1 L Magnesium 2.1 Total Bilirubin AST ALT Alkaline Phosphatase Total Protein Albumin Urine Color Urine Appearance Urine pH Ur Specific [place] Urine Protein Urine Glucose (UA) Urine Ketones Urine Blood Urine Nitrite Ur Leukocyte Esterase Urine RBC Urine WBC Urine WBC Clumps Ur Squamous Epith Cells Ur Transition Epith Cell Ur Renal Epithelial Cell Calcium Oxalate Crystal Leucine Crystals Cystine Crystals Tyrosine Crystals Other Crystals Urine Bacteria Urine Parasites Bilirubin Casts Epithelial Casts Fatty Casts Hyaline Casts Granular Casts Waxy Casts Broad Casts RBC Casts WBC Casts Other Casts Urine Trichomonas Urine Yeast Nasal Screen MRSA (PCR) Nasal S. aureus Screen Nasal MRSA/S.aureus Interp Imaging Radiology Impressions: ITS Impressions Chest CT 01/19/25 09:10 IMPRESSION: Progression of interstitial and groundglass opacities in the right lower lobe consistent with pneumonia. Electronically signed by: Delfin Guerrero MD 01/19/2025 09:37 AM EDT RP Medications Medications Current Medications Acetaminophen (Acetaminophen 325 Mg Tablet) 650 mg PO Q6H PRN PRN Reason: Pain, Mild 1-3,fever,headache Albuterol/Ipratropium (Albuterol/Iprat 2.5/0.5mg 3 Ml Ampul.Neb) 3 ml INHALE Q4H PRN PRN Reason: Shortness of Breath/Wheezing Apixaban (Apixaban 5 Mg Tablet) 5 mg PO BID [facility] Last Admin: 01/21/25 08:23 Dose: 5 mg Benzocaine (Throat Lozenge, Medicated Lozenge) 1 lozenge MUCOUS MEM Q2H PRN PRN Reason: Sore Throat Last Admin: 01/21/25 08:24 Dose: 1 lozenge Benzonatate (Benzonatate 100 Mg Capsule) 200 mg PO TID PRN PRN Reason: Cough Last Admin: 01/21/25 02:38 Dose: 200 mg Calcium Carbonate (Calcium Carbonate 750 Mg Tab.Chew) 750 mg PO Q4H PRN PRN Reason: Heartburn Folic Acid (Folic Acid 1 Mg Tablet) 1 mg PO DAILY [facility] Last Admin: 01/21/25 08:23 Dose: 1 mg Piperacillin Sod/Tazobactam (Sod 3.375 gm/ Sodium Chloride) 50 mls @ 100 mls/hr IV Q6H [facility] Last Infusion: 01/21/25 09:03 Dose: Infused Magnesium Hydroxide (Milk Of Magnesia 30 Ml Oral.Susp) 30 ml PO DAILY PRN PRN Reason: Constipation Melatonin (Melatonin 3 Mg Tablet) 6 mg PO BEDTIME PRN PRN Reason: Insomnia Last Admin: 01/20/25 20:18 Dose: 6 mg Metoprolol Succinate (Metoprolol Succinate Er 50 Mg Tab.Er.24h) 50 mg PO DAILY [facility]; Protocol Last Admin: 01/21/25 08:23 Dose: 50 mg Ondansetron HCl (Ondansetron Hcl 4 Mg/2 Ml Vial) 4 mg IVPUSH Q8H PRN PRN Reason: Nausea and Vomiting Pharmacy Consult (Consult Rx Etoh Phenob Im/Po) 1 each MISCELLANE ONCE PRN; Protocol PRN Reason: Consult order Phenobarbital (Phenobarbital 30 Mg Tablet) 30 mg PO BID [facility] Stop: 01/23/25 09:01 Phenobarbital (Phenobarbital 30 Mg Tablet) 30 mg PO BEDTIME [facility] Stop: 01/24/25 21:01 Senna (Sennosides 8.6 Mg Tablet) 17.2 mg PO BEDTIME [facility] Last Admin: 01/20/25 20:19 Dose: Not Given Sodium Chloride (0.9 % Sodium Chloride Flush 3 Ml Syringe) 3 ml IVFLUSH QSHIFT [facility] Last Admin: 01/21/25 08:28 Dose: Not Given Thiamine HCl (Thiamine Hcl 100 Mg Tablet) 100 mg PO DAILY [facility] Last Admin: 01/21/25 08:23 Dose: 100 mg Allergies Allergies Allergy/AdvReac Type Severity Reaction Status Date / Time benazepril Allergy Mild Unknown Uncoded 01/19/25 03:53 Assessment & Plan Assessment & Plan (1) Alcohol use disorder: Status: Acute Code(s): F10.90 - Alcohol use, unspecified, uncomplicated Assessment and Plan: * does not wish to start Naltrexone yet , but would like to have a prescription sent to his pharmacy * Reviewed indications for medication, side effects, dosing * Reviewed continuation of medication with either PCP or [facility] (information provided) Total time managing care of this patient today _25___ minutes.
[2025-01-21 11:13] VITALS: BP 134/62; PULSE 72; RESP 20; TEMP 36.6; O2SAT 95
[2025-01-21] MEDS: guaiFENesin LA 600 MG TAB.ER.12H PO ×2 (11:41→20:52)
[2025-01-21] MEDS: methylPREDNISolone Sod Succ 40 MG/ML VIAL IVPUSH (11:41)
--- NOTE | 2025-01-21 13:39 | HO.PM.IMPN ---
Subjective Subjective Date of Service: 01/21/25 Interval History: Seen and evaluated this morning Feels little better but still tachycardic and having cough On O2 supplement no other events overnight Review of Systems Review of Systems: Yes all other systems are reviewed and are negative Physical Exam Vital Signs: Vital Signs: Last Vital Signs Temp 97.8 F 01/21/25 11:13 Pulse 72 01/21/25 11:13 Resp 20 01/21/25 11:13 BP 134/62 01/21/25 11:13 Pulse Ox 95 01/21/25 11:13 O2 Del Method Nasal Cannula 01/21/25 11:13 O2 Flow Rate 4 01/21/25 11:13 BMI result Body Mass Index 30.6 Const: Other: Constitutional : interactive, not in distress Cardiovascular : no JVP, no lower extremity edema Respiratory : bilateral chest movement, not in resp distress Gastrointestinal: soft, lax, Non tender Skin : Warm, Dry Neurological : Alert & oriented , No focal deficit Objective Data Active Medications Acetaminophen (Acetaminophen 325 Mg Tablet) 650 mg PO Q6H PRN PRN Reason: Pain, Mild 1-3,fever,headache Albuterol/Ipratropium (Albuterol/Iprat 2.5/0.5mg 3 Ml Ampul.Neb) 3 ml INHALE Q4H PRN PRN Reason: Shortness of Breath/Wheezing Apixaban (Apixaban 5 Mg Tablet) 5 mg PO BID [facility] [place] Last Admin: 01/21/25 08:23 Dose: 5 mg Documented By: GEOVANNA Benzocaine (Throat Lozenge, Medicated Lozenge) 1 lozenge MUCOUS MEM Q2H PRN PRN Reason: Sore Throat Last Admin: 01/21/25 08:24 Dose: 1 lozenge Documented By: GEOVANNA Benzonatate (Benzonatate 100 Mg Capsule) 200 mg PO TID [facility] [place] Last Admin: 01/21/25 11:40 Dose: 200 mg Documented By: GEOVANNA Calcium Carbonate (Calcium Carbonate 750 Mg Tab.Chew) 750 mg PO Q4H PRN PRN Reason: Heartburn Folic Acid (Folic Acid 1 Mg Tablet) 1 mg PO DAILY [facility] [place] Last Admin: 01/21/25 08:23 Dose: 1 mg Documented By: GEOVANNA Guaifenesin (Guaifenesin La 600 Mg Tab.Er.12h) 600 mg PO BID [facility] [place] Last Admin: 01/21/25 11:41 Dose: 600 mg Documented By: GEOVANNA Piperacillin Sod/Tazobactam (Sod 3.375 gm/ Sodium Chloride) 50 mls @ 100 mls/hr IV Q6H [facility] [place] Last Infusion: 01/21/25 09:03 Dose: Infused Documented By: GEOVANNA Magnesium Hydroxide (Milk Of Magnesia 30 Ml Oral.Susp) 30 ml PO DAILY PRN PRN Reason: Constipation Melatonin (Melatonin 3 Mg Tablet) 6 mg PO BEDTIME PRN PRN Reason: Insomnia Last Admin: 01/20/25 20:18 Dose: 6 mg Documented By: JET Comments: requested for sleep Methylprednisolone Sodium Succinate (Methylprednisolone Sod Succ 40 Mg/Ml Vial) 40 mg IVPUSH Q24H [facility] [place] Last Admin: 01/21/25 11:41 Dose: 40 mg Documented By: GEOVANNA Metoprolol Succinate (Metoprolol Succinate Er 50 Mg Tab.Er.24h) 50 mg PO DAILY [facility] [place]; Protocol Last Admin: 01/21/25 08:23 Dose: 50 mg Documented By: GEOVANNA Ondansetron HCl (Ondansetron Hcl 4 Mg/2 Ml Vial) 4 mg IVPUSH Q8H PRN PRN Reason: Nausea and Vomiting Pharmacy Consult (Consult Rx Etoh Phenob Im/Po) 1 each MISCELLANE ONCE PRN; Protocol PRN Reason: Consult order Phenobarbital (Phenobarbital 30 Mg Tablet) 30 mg PO BID [facility] [place] Stop: 01/23/25 09:01 Phenobarbital (Phenobarbital 30 Mg Tablet) 30 mg PO BEDTIME [facility] [place] Stop: 01/24/25 21:01 Senna (Sennosides 8.6 Mg Tablet) 17.2 mg PO BEDTIME [facility] [place] Last Admin: 01/20/25 20:19 Dose: Not Given Documented By: JET Non-Admin Reason: Patient declined Sodium Chloride (0.9 % Sodium Chloride Flush 3 Ml Syringe) 3 ml IVFLUSH QSHIFT [facility] [place] Last Admin: 01/21/25 08:28 Dose: Not Given Documented By: GEOVANNA Non-Admin Reason: Previously Administered Thiamine HCl (Thiamine Hcl 100 Mg Tablet) 100 mg PO DAILY [facility] [place] Last Admin: 01/21/25 08:23 Dose: 100 mg Documented By: GEOVANNA Labs 01/21/25 06:59 01/21/25 06:59 Labs: Laboratory Results - last 24 hr 01/21/25 06:59 MCV 90.4 MCH 29.2 MCHC 32.3 RDW 15.6 Plt Count 452 H MPV 9.2 L Absolute Nucleated RBC 0.000 Nucleated RBC % (auto) 0.0 Anion Gap 10 L Estim Creat Clear Calc 108.3 Estimated GFR > 60 Random Glucose 91 Calcium 8.1 L Magnesium 2.1 Microbiology Microbiology Results: Microbiology 01/19/25 05:19 Blood Culture - Preliminary Blood - Venous No growth after 48 hours. 01/19/25 05:18 Blood Culture - Preliminary Blood - Venous No growth after 48 hours. Assessment and Plan (1) Alcohol use disorder: Status: Acute (2) Acute exacerbation of chronic obstructive airways disease: Status: Acute (3) QT prolongation: Status: Acute Plan 74M PMH 68 beats per day, hypertension, hyperlipidemia, Herrera's esophagus, GERD, fatty liver, a flutter, chronic back pain, bilateral rotator cuff repair, bladder cancer with bladder and prostate removal and ostomy, squamous cell carcinoma of scalp, restless leg syndrome presented with shortness breath cough and fever Sepsis and acute hypoxic respiratory failure secondary to RLL pneumonia MRSA swab negative - vanc dced at risk for multidrug resistant g negatives Continue Zosyn, follow up cultures Wean O2 as tolerated Alcohol dependence with withdrawal Phenobarb, PHONG does not wish to start Naltrexone yet, but would like to have a prescription sent to his pharmacy Addiction team eval, continuation of medication with either PCP or CCC (information provided) Acute hypomagnesemia Replace and monitor Recent diagnosis of atrial flutter Continue apixaban, metoprolol, currently in sinus DVT prophylaxis with apixaban Full code reason for continued hospitalization: Hypoxia and fever pending final cultures Quality Stroke Does the patient have a stroke diagnosis?: No Reason for No Anti-thrombotic by Day Two: N/A - Med Ordered VTE Prior VTE?: No VTE Risk Level:: Medical - moderate - high VTE Device Contraindication: N/A - Device Ordered VTE Drug Contraindication: N/A - Med Ordered
[2025-01-21 15:29] VITALS: BP 154/71; PULSE 71; RESP 18; TEMP 36.8; O2SAT 93
[2025-01-21 20:00] VITALS: BP 142/63; PULSE 69; RESP 18; TEMP 36.8; O2SAT 95
[2025-01-21] MEDS: Melatonin 3 MG TABLET 6 MG PO (20:52)
[2025-01-21] MEDS: 0.9 % Sodium Chloride Flush 3 ML SYRINGE IVFLUSH (20:53)
[2025-01-21] MEDS: PHENobarbitaL 30 MG TABLET PO (20:53)
[2025-01-22] VITALS (10 sets, daily range): BP systolic 125–151; BP diastolic 60–93; PULSE 58–143; RESP 14–22; TEMP 36.6–37.7; O2SAT 92–96
[2025-01-22] MEDS: Piperacillin Sodium/Tazobactam 3.375 GM in 0.9 % Sodium Chloride 50 ML IV ×4 (04:33→20:28)
[2025-01-22 06:57] LABS: MANUAL DIFF FLAG NO
[2025-01-22 07:02] LABS: Basophils Absolute Auto 0.1 X10*3/uL (0.0-0.2); Basophils Percent Auto 0.5 % (0-2); Eosinophils Absolute Auto 0.3 X10*3/uL (0.0-0.4); Eosinophils Percent Auto 2.1 % (0-4); Hematocrit 38.2 % (42.0-52.0); Hemoglobin 12.6 g/dl (14.0-18.0); Imm Gran Abs Auto 0.12 X10*3/uL (0.00-0.03); Imm Gran Pct Auto 0.9 % (0.0-0.4); Lymphocytes Absolute Auto 1.3 X10*3/uL (1.2-4.9); Lymphocytes Percent Auto 9.9 % (20-40); Mean Corpuscular Hemoglobin 29.9 pg (27.0-33.0); Mean Corpuscular Volume 90.5 fL (80.0-98.0); Mean Platelet Volume 9.3 fL (9.4-12.4); Monocytes Absolute Auto 0.9 X10*3/uL (0.1-1.2); Monocytes Percent Auto 6.7 % (2-11); Neutrophils Absolute Auto 10.6 x10*3/uL (2.0-8.3); Neutrophils Percent Auto 79.9 % (45-73); Platelet Count 461 X10*3/uL (160-400); Red Blood Count 4.22 X10*6/uL (4.60-5.80); Red Cell Distribution Width 15.3 % (11.0-16.0); White Blood Count 13.3 X10*3/uL (4.8-10.8)
[2025-01-22 07:23] LABS: Anion Gap 9 (12-20); Blood Urea Nitrogen 10 mg/dL (9-16); Calcium 8.4 mg/dL (8.4-10.2); Carbon Dioxide 26 mmol/L (22-29); Chloride 109 mmol/L (96-108); Creatinine Clr Calc Pharmacy 106.8; Estimated Glomerular Filt Rate > 60; Glucose Random 89 mg/dL (60-115); Sodium 140 mmol/L (135-145)
[2025-01-22] MEDS: Thiamine HCL 100 MG TABLET PO (08:10)
[2025-01-22] MEDS: Metoprolol Succinate ER 50 MG TAB.ER.24H PO (08:10)
[2025-01-22] MEDS: Benzonatate 100 MG CAPSULE 200 MG PO ×3 (08:10→19:52)
[2025-01-22] MEDS: Folic Acid 1 MG TABLET PO (08:10)
[2025-01-22] MEDS: Apixaban 5 MG TABLET PO ×2 (08:10→19:52)
[2025-01-22] MEDS: guaiFENesin LA 600 MG TAB.ER.12H PO ×2 (08:10→20:26)
[2025-01-22] MEDS: PHENobarbitaL 30 MG TABLET PO ×2 (08:11→19:52)
[2025-01-22] MEDS: 0.9 % Sodium Chloride Flush 3 ML SYRINGE IVFLUSH ×3 (08:11→19:36)
--- NOTE | 2025-01-22 15:28 | HO.PM.IMPN ---
Subjective Subjective Date of Service: 01/22/25 Interval History: Seen and evaluated this morning Feels little better but still tachycardic and having cough On O2 supplement no other events overnight Review of Systems Review of Systems: Yes all other systems are reviewed and are negative Physical Exam Vital Signs: Vital Signs: Last Vital Signs Temp 97.9 F 01/22/25 11:31 Pulse 71 01/22/25 11:31 Resp 22 H 01/22/25 11:31 BP 146/65 H 01/22/25 11:31 Pulse Ox 95 01/22/25 11:31 O2 Del Method Nasal Cannula 01/22/25 11:31 O2 Flow Rate 2 01/22/25 11:31 BMI result Body Mass Index 30.6 Const: Other: Constitutional : interactive, not in distress Cardiovascular :irregular, no JVP, no lower extremity edema Respiratory : bilateral chest movement, not in resp distress , on O2 supplement Gastrointestinal: soft, lax, Non tender Skin : Warm, Dry Neurological : Alert & oriented , No focal deficit Objective Data Active Medications Acetaminophen (Acetaminophen 325 Mg Tablet) 650 mg PO Q6H PRN PRN Reason: Pain, Mild 1-3,fever,headache Albuterol/Ipratropium (Albuterol/Iprat 2.5/0.5mg 3 Ml Ampul.Neb) 3 ml INHALE Q4H PRN PRN Reason: Shortness of Breath/Wheezing Apixaban (Apixaban 5 Mg Tablet) 5 mg PO BID [facility] Last Admin: 01/22/25 08:10 Dose: 5 mg Documented By: GEOVANNA Benzocaine (Throat Lozenge, Medicated Lozenge) 1 lozenge MUCOUS MEM Q2H PRN PRN Reason: Sore Throat Last Admin: 01/21/25 08:24 Dose: 1 lozenge Documented By: GEOVANNA Benzonatate (Benzonatate 100 Mg Capsule) 200 mg PO TID [facility] Last Admin: 01/22/25 08:10 Dose: 200 mg Documented By: GEOVANNA Calcium Carbonate (Calcium Carbonate 750 Mg Tab.Chew) 750 mg PO Q4H PRN PRN Reason: Heartburn Folic Acid (Folic Acid 1 Mg Tablet) 1 mg PO DAILY [facility] Last Admin: 01/22/25 08:10 Dose: 1 mg Documented By: GEOVANNA Guaifenesin (Guaifenesin La 600 Mg Tab.Er.12h) 600 mg PO BID [facility] Last Admin: 01/22/25 08:10 Dose: 600 mg Documented By: GEOVANNA Piperacillin Sod/Tazobactam (Sod 3.375 gm/ Sodium Chloride) 50 mls @ 100 mls/hr IV Q6H [facility] Last Infusion: 01/22/25 08:44 Dose: Infused Documented By: GEOVANNA Magnesium Hydroxide (Milk Of Magnesia 30 Ml Oral.Susp) 30 ml PO DAILY PRN PRN Reason: Constipation Melatonin (Melatonin 3 Mg Tablet) 6 mg PO BEDTIME PRN PRN Reason: Insomnia Last Admin: 01/21/25 20:52 Dose: 6 mg Documented By: JET Comments: requested for sleep Methylprednisolone Sodium Succinate (Methylprednisolone Sod Succ 40 Mg/Ml Vial) 40 mg IVPUSH Q24H JODIE Metoprolol Succinate (Metoprolol Succinate Er 50 Mg Tab.Er.24h) 50 mg PO DAILY [facility]; Protocol Last Admin: 01/22/25 08:10 Dose: 50 mg Documented By: GEOVANNA Ondansetron HCl (Ondansetron Hcl 4 Mg/2 Ml Vial) 4 mg IVPUSH Q8H PRN PRN Reason: Nausea and Vomiting Pharmacy Consult (Consult Rx Etoh Phenob Im/Po) 1 each MISCELLANE ONCE PRN; Protocol PRN Reason: Consult order Phenobarbital (Phenobarbital 30 Mg Tablet) 30 mg PO BID [facility] Stop: 01/23/25 09:01 Last Admin: 01/22/25 08:11 Dose: 30 mg Documented By: GEOVANNA Phenobarbital (Phenobarbital 30 Mg Tablet) 30 mg PO BEDTIME [facility] Stop: 01/24/25 21:01 Senna (Sennosides 8.6 Mg Tablet) 17.2 mg PO BEDTIME [facility] Last Admin: 01/21/25 20:53 Dose: Not Given Documented By: JET Non-Admin Reason: Pt declined Sodium Chloride (0.9 % Sodium Chloride Flush 3 Ml Syringe) 3 ml IVFLUSH QSHIFT [facility] Last Admin: 01/22/25 08:11 Dose: 3 ml Documented By: GEOVANNA Thiamine HCl (Thiamine Hcl 100 Mg Tablet) 100 mg PO DAILY [facility] Last Admin: 01/22/25 08:10 Dose: 100 mg Documented By: GEOVANNA Labs 01/22/25 06:49 01/22/25 06:49 Labs: Laboratory Results - last 24 hr 01/22/25 06:49 MCV 90.5 MCH 29.9 MCHC 33.0 RDW 15.3 Plt Count 461 H MPV 9.3 L Immature Gran % (Auto) 0.9 H Neut % (Auto) 79.9 H Lymph % (Auto) 9.9 L [place] % (Auto) 6.7 Eos % (Auto) 2.1 Baso % (Auto) 0.5 Lymph # (Auto) 1.3 [place] # (Auto) 0.9 Eos # (Auto) 0.3 Baso # (Auto) 0.1 Abs Immat Gran (auto) 0.12 H Absolute Neuts (auto) 10.6 H Absolute Nucleated RBC 0.000 Nucleated RBC % (auto) 0.0 Anion Gap 9 L Estim Creat Clear Calc 106.8 Estimated GFR > 60 Random Glucose 89 Calcium 8.4 Assessment and Plan (1) Alcohol use disorder: Status: Acute (2) Acute exacerbation of chronic obstructive airways disease: Status: Acute (3) Sepsis: Status: Acute (4) PNA (pneumonia): Status: Acute Plan 74M PMH 68 beats per day, hypertension, hyperlipidemia, Herrera's esophagus, GERD, fatty liver, a flutter, chronic back pain, bilateral rotator cuff repair, bladder cancer with bladder and prostate removal and ostomy, squamous cell carcinoma of scalp, restless leg syndrome presented with shortness breath cough and fever Sepsis and acute hypoxic respiratory failure secondary to RLL pneumonia MRSA swab negative - vanc dced at risk for multidrug resistant g negatives Continue Zosyn, follow up cultures Iv MEthylpred and Lasix Wean O2 as tolerated Alcohol dependence with withdrawal Phenobarb, PHONG does not wish to start Naltrexone yet, but would like to have a prescription sent to his pharmacy Addiction team eval, continuation of medication with either PCP or CCC (information provided) Acute hypomagnesemia Replace and monitor Recent diagnosis of atrial flutter Continue apixaban, metoprolol, currently in sinus DVT prophylaxis with apixaban Full code reason for continued hospitalization: Hypoxia and fever pending final cultures Quality Stroke Does the patient have a stroke diagnosis?: No Reason for No Anti-thrombotic by Day Two: N/A - Med Ordered VTE Prior VTE?: No VTE Risk Level:: Medical - moderate - high VTE Device Contraindication: N/A - Device Ordered VTE Drug Contraindication: N/A - Med Ordered
[2025-01-22] MEDS: Furosemide 20 MG/2 ML VIAL IVPUSH (15:52)
[2025-01-22] MEDS: methylPREDNISolone Sod Succ 40 MG/ML VIAL IVPUSH (15:53)
[2025-01-22] MEDS: Loperamide HCl 2 MG CAPSULE PO (16:02)
[2025-01-22] MEDS: dilTIAZem HCL 125 MG in 0.9 % Sodium Chloride 100 ML 10 MG IVCONT (19:36)
[2025-01-22] MEDS: Melatonin 3 MG TABLET 6 MG PO (20:27)
[2025-01-22 22:53] LABS: Strep Pneumo Ag urine Not Detected (Not Detected)
[2025-01-23] VITALS: BP 127/79; PULSE 103; RESP 18; TEMP 36.9; O2SAT 94
[2025-01-23] MEDS: Piperacillin Sodium/Tazobactam 3.375 GM in 0.9 % Sodium Chloride 50 ML IV ×2 (01:07→08:55)
[2025-01-23 04:00] VITALS: BP 168/65; PULSE 74; RESP 18; TEMP 36.8; O2SAT 94
[2025-01-23 06:00] VITALS: BMI 29.9
[2025-01-23 07:13] LABS: Legionella Ag Urine Not Detected (Not Detected)
[2025-01-23 07:42] LABS: MANUAL DIFF FLAG NO
[2025-01-23 07:55] LABS: Basophils Absolute Auto 0.1 X10*3/uL (0.0-0.2); Basophils Percent Auto 0.6 % (0-2); Eosinophils Absolute Auto 0.1 X10*3/uL (0.0-0.4); Eosinophils Percent Auto 1.3 % (0-4); Hematocrit 40.2 % (42.0-52.0); Hemoglobin 13.4 g/dl (14.0-18.0); Imm Gran Abs Auto 0.08 X10*3/uL (0.00-0.03); Imm Gran Pct Auto 0.9 % (0.0-0.4); Lymphocytes Absolute Auto 1.3 X10*3/uL (1.2-4.9); Lymphocytes Percent Auto 13.6 % (20-40); Mean Corpuscular HGB Conc 33.3 g/dl (31.0-36.0); Mean Corpuscular Hemoglobin 29.6 pg (27.0-33.0); Mean Corpuscular Volume 88.9 fL (80.0-98.0); Mean Platelet Volume 9.3 fL (9.4-12.4); Monocytes Absolute Auto 0.7 X10*3/uL (0.1-1.2); Monocytes Percent Auto 7.3 % (2-11); Neutrophils Absolute Auto 7.2 x10*3/uL (2.0-8.3); Neutrophils Percent Auto 76.3 % (45-73); Platelet Count 499 X10*3/uL (160-400); Red Blood Count 4.52 X10*6/uL (4.60-5.80); Red Cell Distribution Width 15.2 % (11.0-16.0); White Blood Count 9.4 X10*3/uL (4.8-10.8)
[2025-01-23 08:00] VITALS: BP 130/54; PULSE 67; RESP 18; TEMP 37.2; O2SAT 93
[2025-01-23 08:14] LABS: Anion Gap 11 (12-20); Blood Urea Nitrogen 12 mg/dL (9-16); Calcium 8.4 mg/dL (8.4-10.2); Carbon Dioxide 26 mmol/L (22-29); Chloride 108 mmol/L (96-108); Creatinine Clr Calc Pharmacy 104.4; Estimated Glomerular Filt Rate > 60; Glucose Random 86 mg/dL (60-115); Potassium 4.1 mmol/L (3.3-5.1); Sodium 141 mmol/L (135-145)
[2025-01-23 08:18] LABS: Magnesium 2.2 mg/dL (1.6-2.6)
[2025-01-23] MEDS: Metoprolol Succinate ER 100 MG TAB.ER.24H PO (08:56)
[2025-01-23] MEDS: Apixaban 5 MG TABLET PO (08:56)
[2025-01-23] MEDS: Benzonatate 100 MG CAPSULE 200 MG PO (08:57)
[2025-01-23] MEDS: Thiamine HCL 100 MG TABLET PO (08:57)
[2025-01-23] MEDS: Folic Acid 1 MG TABLET PO (08:57)
[2025-01-23] MEDS: PHENobarbitaL 30 MG TABLET PO (08:57)
[2025-01-23] MEDS: 0.9 % Sodium Chloride Flush 3 ML SYRINGE IVFLUSH (09:00)
[2025-01-23] MEDS: guaiFENesin LA 600 MG TAB.ER.12H PO (09:01)
[2025-01-23 11:42] VITALS: BP 112/46; PULSE 51; RESP 18; TEMP 37; O2SAT 92
--- NOTE | 2025-01-23 11:50 | PM.DS ---
DS: Providers Provider Date of Service: 01/23/25 Date of admission: 01/19/25 06:04 Date of discharge: 01/23/25 Primary care physician: Charlotte Reid NP Consults: 01/19/25 06:44 Addiction Medicine Provider Routine Consulting Provider: Addiction Covering Reason for consultation: alcohol use disorder 01/20/25 08:13 Inpt - Recovery Team Routine Comment: Reason for consultation: RIYA eval DS: Diagnosis Discharge Diagnosis (1) Alcohol use disorder: Status: Acute (2) Acute exacerbation of chronic obstructive airways disease: Status: Acute (3) Sepsis: Status: Acute (4) PNA (pneumonia): Status: Acute (5) Acute hypoxic respiratory failure: Status: Acute (6) Atrial flutter with rapid ventricular response: Status: Acute DS: Summary Hospital Course Hospital Course: Admission note HPI Patient is a 74-year-old male with past medical history of alcohol abuse ( 6-8 beers per day ), hypertension, hyperlipidemia, Herrera's esophagus, GERD, fatty liver, recent diagnosis of atrial flutter, chronic back pain, bilateral rotator cuff repairs, bladder cancer with bladder and prostate removal and current ostomy, 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 Patient was recently discharged on January 12 with a diagnosis of bronchiolitis and a flutter. Patient presents today with acute hypoxic respiratory failure requiring 6 L nasal cannula, all viral studies are currently negative. Chest x-ray notes suspected lower lobe pneumonia versus atelectasis. lung sounds greatly diminished left greater than right. Patient has a white count of 17 and was not on a prednisone taper upon discharge. Temp was over 102 on arrival. Blood cultures x2 were collected prior to starting Zosyn per emergency room provider. Lactic acid 1.7. BNP 182. Patient had echo with last admission noting EF of 50-55% and mild aortic stenosis and regurgitation with an ascending aortic diameter of 3.9. Patient tachycardic when seen in the emergency room with intermittent a flutter. EKG obtained noting sinus tachycardia, Premature atrial contractions with no ischemic changes. QTC 500. magnesium 1.7. 2 g IV magnesium ordered x1. Ostomy site stoma appears a healthy pink color. Patient changes ostomy bag every 3 days. ETOH: Patient states his last beer was proximally 4 days prior. Per patient's spouse, patient has used alcohol on a daily basis for at least 30-40 years. Patient sees GI for history of Herrera's esophagus, GERD and is known to have fatty liver. Patient's liver function currently is within normal limits. Patient extremely restless, diaphoretic. Reviewed plan of care with attending and we are starting phenobarbital for CIWA and alcohol withdrawal. Hospital course The patient was treated for the following: # Sepsis and acute hypoxic respiratory failure secondary to RLL pneumonia as CT chest showed infiltrates. Treated with IV Zosyn as blood cultures remained negative. Iv MEthylpred and Lasix were added for chemical pneumonitis and mild fluid overload with fair response as he was weaned off O2 and was able to ambulate on room air with no reported dyspnea or hypoxia. # Alcohol dependence with withdrawal Kept on Phenobarb, CIWA protocols during hospital stay. He does not wish to start Naltrexone yet, but would like to have a prescription sent to his pharmacy so i did as he was seen by Addiction team with a plan for continuation of medication with either PCP or CCC (information provided) # Acute hypomagnesemia. Replaced and improved # atrial flutter with rapid ventricular response. converted back to sinus rhythm on Cardizem drip. Increase Metoprolol to 100 mg XL. Started Apixaban as he made it clear he will stop drinking. understands risks and benefits. Discharge plan Avoid alcohol Increase Metoprolol to 100 mg XL daily Start Eliquis for stroke prevention Augmentin for 7 more days Prednisone 4 more days Increase physical activity as tolerated Time Attestation Discharge Coordination Time (in mins): 38 Quality: Safe Use of Opioids Does Pt have an Active Cancer Diagnosis on the Problem List?: No Quality: Stroke Does the patient have a stroke diagnosis?: No Physical Exam Vital Signs: Vital Signs: Last Vital Signs Temp 98.6 F 01/23/25 11:42 Pulse 51 01/23/25 11:42 Resp 18 01/23/25 11:42 BP 112/46 L 01/23/25 11:42 Pulse Ox 92 01/23/25 11:42 O2 Del Method Room Air 01/23/25 11:42 O2 Flow Rate 3 01/23/25 08:00 BMI result Body Mass Index 29.9 Const: Other: Constitutional : Awake, interactive, not in distress Neck : Normal inspection, Supple Cardiovascular : RRR, no JVP, no lower extremity edema Respiratory : good bilateral air entry, basal RLL crackles, wheezes or rhonchi Gastrointestinal: soft, lax, Normal bowel sounds, Non tender Skin : Warm, Dry Neurological : Alert & oriented x3, No focal deficit DS: Data Data Completed and Pending Completed studies during hospitalization [Text1]: Procedures Detoxification Services for Substance Abuse Treatment (01/10/25) Labs on day of discharge: Laboratory Results - last 24 hr 01/19/25 01/23/25 06:17 07:26 WBC 9.4 RBC 4.52 L Hgb 13.4 L Hct 40.2 L MCV 88.9 MCH 29.6 MCHC 33.3 RDW 15.2 Plt Count 499 H MPV 9.3 L Immature Gran % (Auto) 0.9 H Neut % (Auto) 76.3 H Lymph % (Auto) 13.6 L [place] % (Auto) 7.3 Eos % (Auto) 1.3 Baso % (Auto) 0.6 Lymph # (Auto) 1.3 [place] # (Auto) 0.7 Eos # (Auto) 0.1 Baso # (Auto) 0.1 Abs Immat Gran (auto) 0.08 H Absolute Neuts (auto) 7.2 Absolute Nucleated RBC 0.000 Nucleated RBC % (auto) 0.0 Sodium 141 Potassium 4.1 Chloride 108 Carbon Dioxide 26 Anion Gap 11 L BUN 12 Creatinine 0.76 Estim Creat Clear Calc 104.4 Estimated GFR > 60 Random Glucose 86 Calcium 8.4 Magnesium 2.2 Ur L.pneumophila Ag Not Detected Ur Strep pneumoniae Ag Not Detected Preliminary micro results at discharge 01/19/25 05:19 Blood Culture - Preliminary Blood - Venous No growth after 48 hours. 01/19/25 05:18 Blood Culture - Preliminary Blood - Venous No growth after 48 hours. Imaging Chest x-ray: Radiologist's impression: ITS Impressions Chest CT 01/19/25 09:10 IMPRESSION: Progression of interstitial and groundglass opacities in the right lower lobe consistent with pneumonia. Electronically signed by: Delfin Guerrero MD 01/19/2025 09:37 AM EDT RP Discharge Plan Discharge Anticipated Discharge Date/Time: 01/23/25 11:29 Patient Disposition: Home Health Service Discharge Diagnosis: Pneumonia Alcohol abuse and withdrawal Atrial flutter Referrals: Charlotte Reid NP [Primary Care Provider] - 1 Week Discharge Medications: New metoprolol succinate 100 mg Tablet Extended Release 24 Hr 100 mg PO DAILY Qty: 90 0RF Protocol: Hold for SBP/HR < HOLD for SBP < : 90 HOLD for HR < : 60 Eliquis 5 mg Tablet 5 mg PO BID Qty: 180 0RF benzonatate 100 mg Capsule 200 mg PO TID Qty: 20 0RF amoxicillin-pot clavulanate 875-125 mg tablet 1 tab PO BID Qty: 14 0RF prednisone 20 mg tablet 40 mg PO DAILY Qty: 10 0RF naltrexone 50 mg tablet 50 mg PO DAILY Qty: 90 0RF Continued spironolacton-hydrochlorothiaz 25-25 mg tablet 1 tab PO DAILY cyanocobalamin (vitamin B-12) 1,000 mcg Tablet 1,000 mcg PO DAILY thiamine HCl (vitamin B1) 100 mg Tablet 100 mg PO DAILY pantoprazole [Protonix] 40 mg Tablet,Delayed Release (Dr/Ec) 40 mg PO Q2D@0630 riboflavin (vitamin B2) 400 mg Tablet 400 mg PO DAILY magnesium oxide 400 mg magnesium capsule 400 mg PO DAILY Qty: 90 0RF fenofibrate 160 mg tablet 160 mg PO DAILY Discontinued metoprolol succinate 50 mg Tablet Extended Release 24 Hr 50 mg PO DAILY Qty: 90 0RF Protocol: Hold for SBP/HR < HOLD for SBP < : 90 HOLD for HR < : 60 Discharge Orders: Discharge Order (Routine); Ordered 01/23/25 Ordered By: Omar Cote Diet: Low salt diet Activity on Discharge: As tolerated Stand Alone Forms: Patient Portal Discharge page Print Language: [place] Care Plan Goals: Avoid alcohol Increase Metoprolol to 100 mg XL daily Start Eliquis for stroke prevention Augmentin for 7 more days Prednisone 4 more days Naltrexone 50 mg daily for alcohol cravings and prevent relapse Increase physical activity as tolerated Health Concerns: Pneumonia Plan of Treatment: Antibiotics Assessment: as above
--- NOTE | 2025-01-23 12:30 | MHC.CM.PN ---
Second IMM given 01/23. Pt is medically cleared for discharge home with resumption of previous [facility] services, pts will transport him home today.
== END 2025-01-23 13:00 | disposition home health service (06) | DRG 871 ==
LOC: HO.ED 06:03 → HO.EDOVER 06:05 → HO.IMC 15:23
PROVIDERS: Internal Medicine; Admitting Provider Nurse Practitioner Family; Emergency Provider Internal Medicine; PCP Nurse Practitioner Family; Visit Provider Student in an Organized Health Care Education/Training Program
DX: A41.9 Sepsis, unspecified organism (principal); J18.9 Pneumonia, unspecified organism; J96.01 Acute respiratory failure with hypoxia; F10.239 Alcohol dependence with withdrawal, unspecified; I48.92 Unspecified atrial flutter; J98.11 Atelectasis; K76.0 Fatty (change of) liver, not elsewhere classified; E83.42 Hypomagnesemia; Z20.822 Contact with and (suspected) exposure to COVID-19; Z85.810 Personal history of malignant neoplasm of tongue; Z85.828 Personal history of other malignant neoplasm of skin; Z93.6 Other artificial openings of urinary tract status; Z90.79 Acquired absence of other genital organ(s); Z85.51 Personal history of malignant neoplasm of bladder; Z79.899 Other long term (current) drug therapy
CPT/HCPCS: 0241U; 36415; 71045; 71250; 80048; 80053; 81001; 82550; 82803; 82947; 83605; 83735; 83880; 84439; 84443; 84484; 85025; 85027; 85610; 87040; 87449; 87640; 87641; 87899; 93005; 94640; 97116; 97162; 99285; J1940; J2543; J2560; J2919; J3370; J3475; S9485

== ENCOUNTER → 2025-01-19 03:58 | Outpatient (BNV) | payer MEDICARE, SELFPAY | PROVIDERS: Emergency Provider Internal Medicine; PCP Nurse Practitioner Family; Visit Provider General Practice | DX: R91.8 Other nonspecific abnormal finding of lung field (principal); R06.02 Shortness of breath | CPT/HCPCS: 71250 ==

== ENCOUNTER → 2025-01-19 05:29 | Outpatient (BNV) | payer MEDICARE, SELFPAY | PROVIDERS: Admitting Provider Nurse Practitioner Family; Emergency Provider Internal Medicine; PCP Nurse Practitioner Family; Visit Provider Internal Medicine | DX: I49.1 Atrial premature depolarization (principal); R00.0 Tachycardia, unspecified | CPT/HCPCS: 93010 ==

== ENCOUNTER → 2025-01-19 06:04 | Outpatient (BNV) | payer MEDICARE, SELFPAY | PROVIDERS: Admitting Provider Nurse Practitioner Family; Emergency Provider Internal Medicine; PCP Nurse Practitioner Family; Visit Provider Nurse Practitioner Family | DX: A41.9 Sepsis, unspecified organism (principal); J96.01 Acute respiratory failure with hypoxia; J18.9 Pneumonia, unspecified organism; F10.930 Alcohol use, unspecified with withdrawal, uncomplicated; E83.42 Hypomagnesemia; I48.92 Unspecified atrial flutter; D72.828 Other elevated white blood cell count; R94.31 Abnormal electrocardiogram [ECG] [EKG] | CPT/HCPCS: 99222; 99232; 99239; 99499 ==

== ENCOUNTER → 2025-01-19 06:04 | Outpatient (BNV) | payer MEDICARE, SELFPAY | PROVIDERS: Admitting Provider Nurse Practitioner Family; Emergency Provider Internal Medicine; PCP Nurse Practitioner Family; Visit Provider Nurse Practitioner Psychiatric/Mental Health | DX: F10.90 Alcohol use, unspecified, uncomplicated (principal) | CPT/HCPCS: 99231 ==

== ENCOUNTER → 2025-01-19 06:04 | Outpatient (BNV) | payer MEDICARE, SELFPAY | PROVIDERS: Admitting Provider Nurse Practitioner Family; Emergency Provider Internal Medicine; PCP Nurse Practitioner Family; Visit Provider Nurse Practitioner Psychiatric/Mental Health | DX: F10.930 Alcohol use, unspecified with withdrawal, uncomplicated (principal) | CPT/HCPCS: 99222 ==

== ENCOUNTER → 2025-01-29 13:10 | Outpatient (REF) | payer MEDICARE, SELFPAY ==
--- OUTSIDE RECORDS SUMMARY | 2025-01-29 13:38 | XMS_ITS | Encounter Summary ---
Author Organization [facility] Address [address] [place] [address] Care Team Providers Care Olericulture Professor Name Role Phone Jeanette Charlotte CALHOUN Primary Care Provider [phone] Encounter Details Date Type Department Care Team (Late st Contact Info) Description 11/23/[address] [facility] - Main Lab [address] [facility] [place] [address] Ernst Mayers MD [address] [facility] [address] [place] [address] Personal history of malignant neoplasm [...] mmol/L LAB CHEMISTRY METHOD 11/23/2024 5:37 PM [facility] Potassium 3.7 3.5 - 5.5 mmol/L LAB CHEMISTRY METHOD 11/23/2024 5:37 PM [facility] Chloride 99 96 - 110 mmol/L LAB CHEMISTRY METHOD 11/23/2024 5:37 PM [facility] CO2 27 21 - 32 mmol/L LAB CHEMISTRY METHOD 11/23/2024 5:37 PM [facility] Anion Gap 8 3 - 11 LAB CHEMISTRY METHOD 11/23/2024 5:37 PM [facility] Glucose 101(H) 70 - 100 mg/dL LAB CHEMISTRY METHOD 11/23/2024 5:37 PM [facility] BUN 6 5 - 25 mg/dL LAB CHEMISTRY METHOD 11/23/2024 5:37 PM [facility] Creatinine 0.79 0.70 - 1.30 mg/dL LAB CHEMISTRY METHOD 11/23/2024 5:37 PM [facility] eGFR 93 >=60 mL/min/1. 73m2 LAB CHEMISTRY METHOD 11/23/2024 5:37 PM [facility] Comment:Calculation based on the??Chronic Kidney Disease Epidemiology Collaboration (CKD-EPI) equation refit??without adjustment for race. BUN/Creatinine Ratio 7.6 LAB CHEMISTRY METHOD 11/23/2024 5:37 PM [facility] Calcium 9.0 8.5 - 10.5 mg/dL LAB CHEMISTRY METHOD 11/23/2024 5:37 PM [facility] AST (SGOT) 23 10 - 42 unit/L LAB CHEMISTRY METHOD 11/23/2024 5:37 PM [facility] ALT (SGPT) 23 10 - 60 unit/L LAB CHEMISTRY METHOD 11/23/2024 5:37 PM [facility] Alkaline Phosphatase 52 42 - 121 unit/L LAB CHEMISTRY METHOD 11/23/2024 5:37 PM EST [facility] Total Protein 7.3 6.0 - 8.0 g/dL LAB CHEMISTRY METHOD 11/23/2024 5:37 PM [facility] Albumin 3.4 3.2 - 5.0 g/dL LAB CHEMISTRY METHOD 11/23/2024 5:37 PM [facility] Total Bilirubin 0.5 0.0 - 1.4 mg/dL LAB CHEMISTRY METHOD 11/23/2024 5:37 PM [facility] Blood Venous blood specimen / Unknown 11/23/2024 8:18 AM EST 11/23/2024 1:35 PM EST us Ernst Mayers MD LAB BLOOD ORDERABLES Final Resul t [facility] [address] [place] [address], * Complete blood count (11/23/2024 8:18 AM EST) WBC 7.6 4.8 - 10.8 K/mcL LAB HEMETOLOGY METHOD 11/23/2024 1:58 PM [facility] RBC 5.10 4.50 - 5.50 M/mcL LAB HEMETOLOGY METHOD 11/23/2024 1:58 PM [facility] Hemoglobin 14.7 13.5 - 17.5 g/dL LAB HEMETOLOGY METHOD 11/23/2024 1:58 PM [facility] Hematocrit 44.7 42.0 - 54.0 % LAB HEMETOLOGY METHOD 11/23/2024 1:58 PM [facility] MCV 88.3 79.0 - 98.0 FL LAB HEMETOLOGY METHOD 11/23/2024 1:58 PM [facility] MCH 29.1 27.0 - 32.0 pcg LAB HEMETOLOGY METHOD 11/23/2024 1:58 PM EST [facility] MCHC 32.9 32.0 - 37.0 g/dL LAB HEMETOLOGY METHOD 11/23/2024 1:58 PM EST [facility] RDW 14.5 11.0 - 15.0 % LAB HEMETOLOGY METHOD 11/23/2024 1:58 PM EST [facility] Platelets 349 130 - 400 K/mcL LAB HEMETOLOGY METHOD 11/23/2024 1:58 PM EST [facility] MPV 9.5 7.0 - 11.0 FL LAB HEMETOLOGY METHOD 11/23/2024 1:58 PM EST [facility] NRBC 0.0 <1.0 % LAB HEMETOLOGY METHOD 11/23/2024 1:58 PM EST [facility] NRBC Absolute 0.00 <0.10 K/mcL LAB HEMETOLOGY METHOD 11/23/2024 1:58 PM EST [facility] Blood Venous blood specimen / Unknown 11/23/2024 8:18 AM EST 11/23/2024 1:35 PM EST Ernst Mayers MD LAB BLOOD ORDERABLES Final Resul t [facility] [address] [place] [address], * Prostate specific antigen diagnostic (11/23/2024 8:18 AM EST) PSA <0.06 0.00 - 4.00 ng/mL LAB CHEMISTRY METHOD 11/23/2024 5:46 PM EST [facility] Blood Venous blood specimen / Unknown 11/23/2024 8:18 AM EST 11/23/2024 1:35 PM EST [facility] - 11/23/2024 5:46 PM EST The Siemens Advia Centaur Chemiluminescent Immunoassay is used. Results obtained with different assay methods or kits cannot be used interchangeably. Results cannot be interpreted as absolute evidence of the presence or absence of malignant disease. us Ernst Mayers MD LAB BLOOD ORDERABLES Final Resul t [facility] ([facility] [address] [place] [address], documented in this encounter Visit Diagnoses Diagnosis Personal history of malignant neoplasm of bladder Personal history of malignant neoplasm of prostate documented in this encounter Care Teams Olericulture Professor Relationship Specialty Start Date End Date Charlotte Reid NP [address] [facility] [place] [id number] PCP - General Nurse Practitioner 11/23/24 documented as of this encounter
--- OUTSIDE RECORDS SUMMARY | 2025-01-29 13:38 | XMS_ITS | Clinical Summary ---
Author Organization [address] Address [address] [place] [address] Phone Care Team Providers Care Associate Artistic Director Name Role Phone Jeanette, Charlotte CALHOUN Primary Care Provider [phone] Encounters Date Type Department Care Team Description 11/23/2024 Lab Requisition [facility] - Main Lab [address] [facility] [place] [address] Ernst Mayers MD Personal history [...] 2024 Influenza Vaccine (#1) 2024 RSV Immunization Adult Patie nts (1 - 1-dose 75+ series) 2025 HIB [...] age to complete this topic Meningococcal B Vaccine Aged Out No l onger eligible based on patient's age to complete [...] LAB CHEMISTRY METHOD 11/23/2024 5:46 PM EST [facility] Blood Venous blood specimen / Unknown 11/23/2024 8:18 AM EST 11/23/2024 1:35 PM EST [facility] - 11/23/2024 5:46 PM EST The Siemens Advia RunnerPlaceaur Chemiluminescent Immunoassay is used. Results obtained with different assay methods or kits cannot be used interchangeably. Results cannot be interpreted as absolute evidence of the presence or absence of malignant disease. us Ernst Mayers MD LAB BLOOD ORDERABLES Final Resul t [facility] [address] [place] [address], * Complete blood count (11/23/2024 8:18 AM EST) WBC 7.6 4.8 - 10.8 K/mcL LAB HEMETOLOGY METHOD 11/23/2024 1:58 PM [facility] RBC 5.10 4.50 - 5.50 M/mcL LAB HEMETOLOGY METHOD 11/23/2024 1:58 PM [facility] Hemoglobin 14.7 13.5 - 17.5 g/dL LAB HEMETOLOGY METHOD 11/23/2024 1:58 PM [facility] Hematocrit 44.7 42.0 - 54.0 % LAB HEMETOLOGY METHOD 11/23/2024 1:58 PM EST [facility] MCV 88.3 79.0 - 98.0 FL LAB HEMETOLOGY METHOD 11/23/2024 1:58 PM [facility] MCH 29.1 27.0 - 32.0 pcg LAB HEMETOLOGY METHOD 11/23/2024 1:58 PM [facility] MCHC 32.9 32.0 - 37.0 g/dL LAB HEMETOLOGY METHOD 11/23/2024 1:58 PM [facility] RDW 14.5 11.0 - 15.0 % LAB HEMETOLOGY METHOD 11/23/2024 1:58 PM [facility] Platelets 349 130 - 400 K/mcL LAB HEMETOLOGY METHOD 11/23/2024 1:58 PM [facility] MPV 9.5 7.0 - 11.0 FL LAB HEMETOLOGY METHOD 11/23/2024 1:58 PM [facility] NRBC 0.0 <1.0 % LAB HEMETOLOGY METHOD 11/23/2024 1:58 PM [facility] NRBC Absolute 0.00 <0.10 K/mcL LAB HEMETOLOGY METHOD 11/23/2024 1:58 PM [facility] Blood Venous blood specimen / Unknown 11/23/2024 8:18 AM EST 11/23/2024 1:35 PM EST us Ernst Mayers MD LAB BLOOD ORDERABLES Final Resul t [facility] [address] [place] [address], [place] [phone] * (ABNORMAL) Comprehensive metabolic panel (11/23/2024 8:18 AM EST) Sodium 134 133 - 145 mmol/L LAB CHEMISTRY METHOD 11/23/2024 5:37 PM [facility] Potassium 3.7 3.5 - 5.5 mmol/L LAB CHEMISTRY METHOD 11/23/2024 5:37 PM [facility] Chloride 99 96 - 110 mmol/L LAB CHEMISTRY METHOD 11/23/2024 5:37 PM [facility] CO2 27 21 - 32 mmol/L LAB CHEMISTRY METHOD 11/23/2024 5:37 PM [facility] Anion Gap 8 3 - 11 LAB CHEMISTRY METHOD 11/23/2024 5:37 PM [facility] Glucose 101(H) 70 - 100 mg/dL LAB CHEMISTRY METHOD 11/23/2024 5:37 PM [facility] BUN 6 5 - 25 mg/dL LAB CHEMISTRY METHOD 11/23/2024 5:37 PM [facility] Creatinine 0.79 0.70 - 1.30 mg/dL LAB CHEMISTRY METHOD 11/23/2024 5:37 PM [facility] eGFR 93 >=60 mL/min/1. 73m2 LAB CHEMISTRY METHOD 11/23/2024 5:37 PM [facility] Comment:Calculation based on the??Chronic Kidney Disease Epidemiology Collaboration (CKD-EPI) equation refit??without adjustment for race. BUN/Creatinine Ratio 7.6 LAB CHEMISTRY METHOD 11/23/2024 5:37 PM [facility] Calcium 9.0 8.5 - 10.5 mg/dL LAB CHEMISTRY METHOD 11/23/2024 5:37 PM [facility] AST (SGOT) 23 10 - 42 unit/L LAB CHEMISTRY METHOD 11/23/2024 5:37 PM [facility] ALT (SGPT) 23 10 - 60 unit/L LAB CHEMISTRY METHOD 11/23/2024 5:37 PM [facility] Alkaline Phosphatase 52 42 - 121 unit/L LAB CHEMISTRY METHOD 11/23/2024 5:37 PM [facility] Total Protein 7.3 6.0 - 8.0 g/dL LAB CHEMISTRY METHOD 11/23/2024 5:37 PM [facility] Albumin 3.4 3.2 - 5.0 g/dL LAB CHEMISTRY METHOD 11/23/2024 5:37 PM [facility] Total Bilirubin 0.5 0.0 - 1.4 mg/dL LAB CHEMISTRY METHOD 11/23/2024 5:37 PM [facility] Blood Venous blood specimen / Unknown 11/23/2024 8:18 AM EST 11/23/2024 1:35 PM EST us Ernst Mayers MD LAB BLOOD ORDERABLES Final Resul t [facility] [address] [place] [address], from Last 3 Months Insurance MEDICARE [employer] [place] Care Teams Associate Artistic Director Relationship Specialty Start Date End Date Charlotte Reid NP [address] [facility] [address] PCP - General Nurse Practitioner 11/23/24
--- OUTSIDE RECORDS SUMMARY | 2025-01-29 13:38 | XMS_ITS | Data Portability ---
Author Organization JOHANNA Arguelles s, [address] Address [address] [place] [address] Assessment No assessment recorded. Plan of Treatment Reminders Order Date Submit Date Provider Last Modified By Organization Details Last Modified Time Details Appointments None recorded. Lab rapid SARS CoV 2 Ag, QL IA, respiratory specimen 2021 [email or web address] 1 _marybel [facility]apien, [address] [place] [address], [phone], 09:31:48 rapid flu (A+B) 2021 [email or web address] 1 _[facility], [address] [place] [address], [phone], 09:31:48 Referral None recorded. Procedures None recorded. Surgeries None recorded. Imaging None recorded. Medication Orders Augmentin 875 mg-125 mg tablet 2021 [facility] #[id number], [address] [place], [address], 08:38:14 amoxicillin 875 mg tablet 2021 [id number], [address] [place], [address], 09:31:51 fluticasone propionate 50 mcg/actuati on nasal spray,suspe nsion 2021 [id number], [address] [place], [address], 09:31:51 Patient TargetsNo targets recorded. Patient Instructions Encounter Date Encounter Id Patient Instructions Last Modified By Organization Details Last Modified Time 10/11/2022 [id number] Acute Sinusitis: Care Instructions Not available 10/11/2022 09:31:48 10/18/2022 [id number] animal bites: care instructions ori lopez Not [...] =Negat rosy Not Available [facility] [address] [place], [place] [address], [address], 10/11/2022 08:55:37 10/11/20 22 10/11/2022 rapid SARS CoV 2 Ag, QL IA, respi rator y speci men Unknown Analyte negati ve Not Available [facility] [address] [place], [place] [address], [address], 10/11/2022 08:55:37 10/11/2010/11/2022 rapid flu (A+B) Unknown Analyte Normal = Negati ve Not [facility] [address] [place], [address], 10/11/2022 08:55:44 10/11/2010/11/2022 rapid flu (A+B) Unknown Analyte negati ve Not [facility] [address], [address], 10/11/2022 08:55:44 10/11/2010/11/2022 rapid flu (A+B) Unknown Analyte Normal = Negati ve Not [facility] [address], [address], 10/11/2022 08:55:44 10/11/2010/11/2022 rapid flu (A+B) Unknown Analyte negati ve Not [facility] [address], [address], 10/11/2022 08:55:44 Result Notes None recorded. Problems Name Problem SNOMED Code Status Onset Date Resolution Date Notes Provider Name and Address Organization Details Recorded Time Hypertensiv e disorder 40046503 Active 2021 Antonella haywood PA - [facility] 2 08:54:43 Malignant neoplasm of urinary bladder 244775649 Completed 202110/11/2022 Antonella haywood PA - [facility] 08:54:52 Problem Notes None recorded. Procedures Surgical History Date Name Laterality Status Provider Name and Address Organization Details Recorded Time Wound Care UC completed JOHANNA THOMAS JD, [place], [address], PA - [facility] 10/18/2022 08:28:16 excision of urinary bladder completed Antonella Deanna PA - [facility] 10/11/2022 08:55:30 Imaging Results None recorded. Procedure Notes None recorded. Medical Equipment None Reported. Allergies Allergen ID Allergen Name Allergen Category Reaction Reaction Severity Criticality Documentation Date Start Date Code Code System Note Provider Name and Address Organization Details Recorded Time 40398 benazepri l medicatio n Not available Not available Not available 10/11/2022 77185 RxNorm Antonella haywood PA - [facility] [...] DateTime 12/22/202 2 182.88 cm 31.2 kg/m2 047991. 25 g 95 % 95 % 96 /min 20 /min 98.8 [degF] 167 mm[Hg] 84 mm[Hg] Antonella Huerta PA - [facility] 08:52:07 Date Recorded Body height Body mass index (BMI) Body weight Heart rate Oxygen saturation Oxygen saturation in Arterial blood by Pulse oximetry Respiratory rate Body temperature Systolic blood pressure Diastolic blood pressure Provider Name and Address Organization Details Last Updated DateTime 2 182.88 cm 31.2 kg/m2 933277. 25 g 95 /min 94 % 94 % 18 /min 97.9 [degF] 166 mm[Hg] 78 mm[Hg] VALENTIN MARIE PA [email or web address] 08:09:32 Social History Question Answer Notes LastModified by VR1 Details LastModified Time Tobacco Smoking Status Never Smoker Antonella haywood PA - [facility] 10/11/2022 08:55:05 What Is Your Level [...] or 50 mcg/0.25mL dose 01/11/2021 completed Antonella [place] null, PA - [facility] 10/11/2022 08:52:46 COVID-19, mRNA, LNP-S, PF, 100 mcg/0.5mL dose or 50 mcg/0.25mL dose 12/14/2020 completed Antonella [place] null, PA - [facility] 10/11/2022 08:52:46 Influenza, high-dose, quadrivalent, PF 06/22/2022 completed Antonella Deanna null, PA - [facility] 10/11/2022 08:52:46 COVID-19, mRNA, LNP-S, PF, 100 mcg/0.5mL dose or 50 mcg/0.25mL dose 08/17/2021 completed Antonella [place] null, PA - [facility] 10/11/2022 08:52:46 Tdap 05/21/2022 completed VALENTIN MARIE null, PA - [facility] 10/18/2022 08:26:32 Past Encounters Encounter ID Performer Location Encounter Start Date Encounter Closed Date Diagnosis/Indication Diagnosis SNOMED-CT Code Diagnosis ICD10 Code Diagnosis Note [id number] [address] [address] 08/12/2016 10:09:22 08/12/2016 10:48:51 [id number] NYA KAUR MD [address] [address] 10/11/2022 08:17:14 10/11/2022 09:34:16 Cough 18102861 R05.9 Acute sinusitis 64066434 J01.90 If your symptoms worsen or persist [...] to the Emergency Department . [facility] or see your primary care physician if your symptoms fail to improve in 5-7 days. You should follow up sooner if your symptoms worsen significan tly or if you develop new symptoms that concern you. [id number] JOHANNA AUGUST [address] [address] 10/18/2022 08:02:10 10/18/2022 08:39:12 Dog bite of hand 714685261 W54.0XXA Health Concerns Section Related Observation LastModified by Organization Detai ls LastModified Time None Recorded Concern Status LastModified by Organization Details LastModified Time None Recorded Advance Directives Directive None Recorded Payers Encounter Date Sequence Insurance Name Policy Number Policy Platt Covered Member ID Platt Member ID Guarantor Name 08/12/2016 1 [place] [employer] Nathan Monique [id number] Nathan Monique 08/12/2016 2 [place] [id number] Nathan Monique [id number] Nathan Monique 10/11/2022 1 [place] [employer] Nathan Monique [id number] Nathan Linosz 10/11/2022 2 [place] [id number] Nathan Cannonz [id number] Nathan Linosz 10/18/2022 1 [place] [employer] Nathan Monique [id number] Nathan Linosz 10/18/2022 2 [place] [id number] Nathan Cannonz [id number] Nathan Monique Notes Date Note Type [...] NYA KAUR MD [address] [place], [address], PA - [facility] 10/11/2022 09:33:15 10/18/2022 text/html Animal BiteRepor sweetie bypatient.Onset of exposure:12 hours ago; date: 10/17/2022 Type of Exposure:dog bite Wound Type:Puncture Location:left; hands Context:animal: county - , vaccinated ; agency notified Associated Symptoms:no wound drainage; no redness; no swelling Vaccine Status:Tetanus vaccine within past 5 years JOHANNA AHUMADA [address] [place], [address], PA - [facility] 10/18/2022 08:39:30
--- OUTSIDE RECORDS SUMMARY | 2025-01-29 13:38 | XMS_ITS | Data Portability ---
Author Organization [place] - [facility], Allergy Address [address] [address] Care Team Providers Care Employment Representative Name Role Phone CRISTA CHAVEZ Primary Care [...] lab - H+E histology w/stains 2023 024 [email or web address] [facility] (Centralized Electronic Ordering - All Locations), Patient Can Go To The Location Of Their Choice, [id number] 07/16/2024 14:45:25 Referral None recorded. Procedures None recorded. Surgeries exam under anesthesi a (SURG) 2023 024 Not available 07/09/2024 10:42:29 Imaging None recorded. Medication Orders ciproflox acin 0.3 %-dexamet hasone 0.1 % ear drops,man pension 2023 024 [email or web address] [id number], [address] [place], [address], 08/03/2024 08:27:31 ciproflox acin 0.3 %-dexamet hasone 0.1 % ear drops,man pension 2023 024 [email or web address] [id number], [address] [place], [address], 08/03/2024 08:27:31 Patient TargetsNo targets recorded. Patient [...] l exostosi s of external ear canals 82445745320 29291 Active 2022 Exostosi s of external canal, bilatera l; Note: Date Diagnose d: 11/29/2022 10:52 AM (H61.813 ) Not Available [facility] 4 02:45:07 Abnormal auditory percepti on 12999883 Active 2019 Other abnormal auditory percepti ons, left ear; Note: Date Diagnose d: 0 8:57 AM (H93.292 ) Not Available [facility] 4 02:45:04 Impacted cerumen in right ear 80652479964 45379 Active 2017 Impacted cerumen, right ear; Note: Date Diagnose d: 10/23/2017 9:09 AM (H61.21) Not Available [facility] 4 02:44:58 Chronic serous otitis media 35186093 Active 2013 Chronic serous otitis media; Note: Date Diagnose d: 09/29/20 14 9:17 AM (381.10) Not Available [facility] 4 02:45:00 Bilatera l disorder of Eustachi an tubes 86068747835 92463 Active 2014 Other specifie d disorder s of Eustachi an tube, bilatera l; Note: Date Diagnose d: 08/18/20 15 11:50 AM (H69.83) Not Available [facility] 4 02:45:04 Mixed conducti ve and sensorin eural hearing loss of left ear 65860324751 107 Active 2015 Mixed conducti ve and [...] 16 12:57 PM (H90.A32 ) Not Available [facility] 4 02:45:00 Mass of neck 720319409 Active 2015 Localize d swelling , mass and lump, neck; Note: Date Diagnose d: 08/17/20 16 2:38 PM (R22.1) Not Available [facility] 4 02:45:02 Neck swelling 653772373 Active 2015 Localize d swelling , mass and lump, neck; Note: Date Diagnose d: 08/17/20 16 2:38 PM (R22.1) Not Available [facility] 4 02:45:02 Sensorin eural hearing loss 93620228 Active 2014 Sensorin eural hearing loss, unilater al, right ear, with unrestri cted hearing on the contrala teral side; Note: Date Diagnose d: 08/18/20 15 11:50 AM (H90.41) Not Available [facility] 4 02:45:07 Middle ear conducti ve hearing loss 40459371 Active 2013 Conducti ve hearing loss, middle ear; Note: Date Diagnose d: 09/29/20 14 9:17 AM (389.03) Not Available [facility] 4 02:45:00 Otorrhea of right ear 61879093085 39891 Active 2014 Otorrhea , right ear; Note: Date Diagnose d: 09/30/20 15 3:32 PM (H92.11) Not Available [facility] 4 02:45:01 Disorder of right Eustachi an tube 91435778975 51875 Active 2015 Other specifie d disorder s of Eustachi an tube, right ear; Note: Date Diagnose d: 6 12:50 PM (H69.81) Not Available [facility] 4 02:45:05 Otorrhea of left ear 04207610028 44853 Active 2022 Otorrhea , left ear; Note: [...] Start Date : 10/29/19 19 Not Available [facility] 4 02:45:05 Sensorin eural hearing loss of bilatera l ears 874472718 Active 2016 Sensorin eural HL, bilatera l; Note: Date Diagnose d: 5 9:51 AM (389.18) ; Start Date : 11/05/19 15 Senso rineural hearing loss, bilatera l; Note: Date Diagnose d: 7 2:06 PM (H90.3) Sensor ineural hearing loss, bilatera l; Note: Date Diagnose d: 6 11:38 AM (H90.3) ; Start Date : 11/02/19 16 Not Available [facility] 4 02:44:59 Sensorin eural hearing loss in right ear 98147886821 100 Active 2015 Sensorin eural hearing loss, unilater al, right ear, with restrict ed hearing on the contrala teral side; Note: Date Diagnose d: 09/03/20 16 12:57 PM (H90.A21 ) Not Available [facility] 4 02:45:04 Otitis externa of left ear 76872958859 45962 Completed 201605/22/2024 Other otitis externa, left ear; Note: Date Diagnose d: 7 11:30 AM (H60.8X2 ) Not Available [facility] 4 02:45:03 Dysfunct ion of eustachi an tube 80650184 Active 2013 Eustachi an tube dysfunct ion; Note: Date Diagnose d: 09/29/20 14 9:17 AM (381.81) Eustac hian tube dysfunct ion; Note: Date Diagnose d: 09/29/20 14 9:54 AM (381.81) Not Available [facility] 4 02:45:02 Chronic mucoid otitis media of left middle ear 89007147875 06736 Active 2018 Chronic mucoid otitis media, left ear; Note: Date Diagnose d: 9 9:54 AM (H65.32) Not Available [facility] 4 02:44:59 Mixed conducti ve and sensorin eural hearing loss, bilatera l 155235564 Active 2015 Mixed conducti ve and sensorin [...] 4 02:45:06 Chronic maxillar y sinusiti s 32286071 Active 2016 Chronic maxillar y sinusiti s; Note: Date Diagnose d: 7 2:03 PM (J32.0) Not Available [facility] 4 02:44:58 Tobacco dependen ce syndrome 64409388 Active 2013 Tobacco abuse; Note: Date Diagnose d: 09/29/20 14 9:17 AM (305.1) Not Available [facility] 4 02:44:58 Otalgia of left ear 2606718511 Active 2018 Otalgia, left ear; Note: Date Diagnose d: 9 9:53 AM (H92.02) Not Available [facility] 4 02:45:03 Otalgia of right ear 9729234241 Active 2017 Otalgia, right ear; Note: Date Diagnose d: 10/23/2017 9:09 AM (H92.01) Not Available [facility] 4 02:45:01 Bilatera l chronic serous otitis 778509348 Active 2017 Chronic serous otitis media, bilatera l; Note: Date Diagnose d: 8 11:05 AM (H65.23) Not Available [facility] 4 02:45:03 Unilater al sensorin eural hearing loss with unrestri cted hearing on the contrala teral side Active 2013 Sensorin eural HL, unilater al; Note: Date Diagnose d: 09/29/20 14 9:54 AM (389.15) Not Available [facility] 4 02:45:02 Lesion of tongue 315905835 Active 2023 LORETO KELLY MD [address], [place], [place], [address] , [place] - [facility] 4 14:18:35 Neoplasm of uncertai n behavior of tongue 09830321 Active 2023 LORETO KELLY MD [address], [place], [place], [address] , [place] - [facility] 4 11:00:38 Current drinker 590277 Active 2023 LORETO KELLY MD [address], [place], [place], [address] , [place] - [facility] 4 08:36:11 Actinic keratosi s 463999560 Active 2023 LORETO KELLY MD [address], [place], [place], [address] , [place] - [facility] 4 08:37:20 Malignan t tumor of tongue 130931762 Active 2023 Tumor location - Left ventral tongue Stage - T1N0 Treatmen t - wide local excision Completi on - 07/14/24 Oncology team - Rashida MURRAY MD [address], [place], [place], [address] , [place] - [facility] 4 11:25:35 Otitis externa of left ear 04714420735 19712 Active 2016 Maricruz haywood [place] - [facility] 4 09:21:41 Notes:Some problems listed i n Document: #[id number] could not be added to this patient's chart. Please review this document and add these problems to the patient's chart manually as needed. Problem Notes None recorded. Procedures Surgical History Date Name Laterality Status Provider Name and Address Organization Details Recorded Time 4 excision of lesion of tongue completed LORETO JONES MD [address] [facility],[address], [address], [place] - [facility] 07/14/2024 15:23:25 4 Eardrum revision completed LORETO JONES MD 100 [facility],[place] [address], [place], [address], [place] [facility] 07/14/2024 15:24:08 4 Biopsy Anterior Tongue completed LORETO JONES MD 100 [facility],[address], [address], [facility] - [facility] 06/15/2024 14:18:28 Imaging Results Imaging Date Name Status LastModified by [facility] Details LastModified Time 10/26/2019 imaging/diagno stic result [...] Name and Address Organization Details Recorded Time 645000 prednison e medicatio n other Not available Not available 03/03/2024 8640 RxNorm React ion: unkno wn, unspe cifie d;; Not Available [facility] 4 01:12:03 209082 benazepri l medicatio n other Not available Not available 03/03/2024 14990 RxNorm React ion: unkno wn, unspe cifie d;; Not Available [facility] 01:12:05 Medications Name Sig Start Date [...] ne propionat e 50 mcg/actua tion nasal spray,[facility] active Medicati on ID: [id number] B rand Name: fluticas one propiona te [...] Not Available Not Available Not Available Fluvirin 6181-1111 45 mcg (15 mcg x 3)/0.5 mL intramusc ular suspensio n 08/17 completed Not Available Not Available Not Available Vitals Date Recorded Body height Body mass index (BMI) Body weight Provider Name and Address Organization Details Last Updated DateTime 06/15/2024 182.88 cm 29.8 kg/m2 46717.32 g Jone Shanks [place] - [facility] 06/15/2024 13:49:40 Date Recorded Body height Body mass index (BMI) Body weight Provider Name and Address Organization Details Last Updated DateTime 07/09/2024 182.88 cm 29.8 kg/m2 03905.32 g Sandy Marie [place] [facility] 07/09/2024 09:11:11 Date Recorded Body height Body mass index (BMI) Body weight Provider Name and Address Organization Details Last Updated DateTime 08/03/2024 182.88 cm 29.8 kg/m2 62331.32 g Kaylee Armenta [place] [facility] 08/03/2024 08:27:25 Date Recorded Body height Body mass index (BMI) Body weight Provider Name and Address Organization Details Last Updated DateTime 10/07/2024 182.88 cm 29.8 kg/m2 11402.32 g Maricruz Camp [place] - [facility] 10/07/2024 09:21:28 Date Recorded Body height Body mass index (BMI) Body weight Provider Name and Address Organization Details Last Updated DateTime 12/09/2024 182.88 cm 30.1 kg/m2 418390.51 g Martin Guerrero [place] - [facility] 12/09/2024 09:49:15 Social History Question Answer Notes LastModified by Organizat ion Details LastModified Time Tobacco Smoking Status Former Smoker LORETO JONES MD [address] [place] [address], [address], [facility] - [facility] 06/15/2024 14:13:21 What Is Your Level Of [...] Emphysema N Migraines N Thyroid Problems N Glaucoma N Depression N COPD N Developmental Delay N Nasal or Sinus Problems N Anemia N Immune System Disorder N Anesthesia Complications N Heart Attack ([place]) N Other Skin Condition N Diabetes N Rhinitis N Bleeding Disorder N Food Allergy N Arthritis N Hearing Loss Y Hyperlipidemia N Cancer Y Stroke N Dementia N Nasal polyps N Asthma N Sleep Disorder N GERD/Reflux Y High Cholesterol Y Liver Disease N Headaches N Fibromyalgia N Hypertension Y Speech Delay N Kidney Disease N Past Encounters Encounter ID Performer Location Encounter Start Date Encounter Closed Date Diagnosis/Indication Diagnosis SNOMED-CT Code Diagnosis ICD10 Code Diagnosis Note [id number] LORETO KELLY MD [facility] [address] [address] 06/15/2024 13:37:25 06/15/2024 14:25:25 Otorrhea of left ear 0750391470 165477 H92.12 Lesion of tongue 2466749 05 K14.9 Recently diagnosed with lesion of the left ventral tongue and placed on nystatin. This appears to be more like leukoplaki a. We discussed proceeding with biopsy. Depending on the results of the biopsy we may need to consider additional procedures . [id number] LORETO KELLY MD [facility] [address] [address] 07/09/2024 08:47:57 07/09/2024 09:31:17 Otorrhea of left ear 3352182208 064359 H92.12 Lesion of tongue 1800193 05 K14.9 [id number] LORETO KELLY MD [facility] [address] [address] 08/03/2024 08:20:07 08/03/2024 08:41:55 History of malignant neoplasm of tongue 107547249 Z85.810 We reviewed that this area needs to be watched closely and I have suggested a trial of curcumin supplement s. Discussed he needs to notify his physicians as this can cause excess bleeding with invasive procedures I have also suggested an evaluation with Dr. Murray for considerat ion of reexcision and grafting versus serial examinatio ns. 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 There is also actinic damage of the left cheek. Suggest dermatolog y evaluation [id number] MASSIMO MURRAY MD [facility] [address] [address] 10/07/2024 08:36:40 10/07/2024 09:39:05 Malignant tumor of tongue 662721419 C02.9 [id number] MASSMIO MURRAY MD [facility] [address] [address] 12/09/2024 09:43:00 12/09/2024 10:25:14 Malignant tumor of tongue 923168219 C02.9 Health Concerns Section Related Observation LastModified by Organization Detai ls LastModified Time None Recorded Concern Status LastModified by Organization Details LastModified Time None Recorded Advance Directives Directive None Recorded Payers Encounter Date Sequence Insurance Name Policy Number Policy Platt Covered Member ID Platt Member ID Guarantor Name 06/15/2024 1 [place] Nathan Monique [id number] Nathan Monique 06/15/2024 2 [place] [id number] Nathan Monique [id number] Nathan Monique 07/09/2024 1 [place] Nathan Cannonz [id number] Nathan Nicolas Bartosz 07/09/2024 2 [place] [id number] Nathan Nicolas Bartosz [id number] Nathan Nicolas Bartosz 08/03/2024 1 [place] Nathan Nicolas Bartosz [id number] Nathan Nicolas Bartosz 08/03/2024 2 [place] [id number] Nathan Nicolas Bartosz [id number] Nathan Nicolas Bartosz 10/07/2024 1 [place] Nathan Nicolas Bartosz [id number] Nathan Nicolas Bartosz 10/07/2024 2 [place] [id number] Nathan Nicolas Bartosz [id number] Nathan Nicolas Bartosz 12/09/2024 1 [place] Nathan Linosz [id number] Nathan Nicolas Bartosz 12/09/2024 2 [place] [id number] Nathan Linosz [id number] Nathan Cannonz Notes Date Note Type [...] None for 8 years LORETO JONES MD [address] [place] [address], [address], [place] - [facility] 06/15/2024 16:51:40 07/09/2024 text/html 73 year old [...] show precancerous changes. LORETO JONES MD 100 [facility],[address], [address], [facility] - [facility] 07/09/2024 13:26:15 08/03/2024 text/html Patient with rec [...] on that side. 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 MASSIMO MURRAY MD [address] [place] [address],[address], [address], [facility] - [facility] 10/07/2024 09:39:00 12/09/2024 text/html Patient of Dr York ventral tongue leukoplakia07/14/24 Left ventral tongue, [facility], SchreibsteinSCCA, margins medial and lateral high grade dysplasia Tumor location- Left ventral tongueStage - [id number] - wide local excisionCompletion - 07/14/24Oncology team - 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
--- OUTSIDE RECORDS SUMMARY | 2025-01-29 13:38 | XMS_ITS | Patient Health Record ---
Author Organization [facility] Address [address] [place] [address] Care Team Providers Care Hvac Service Tech Name Role Phone Aminata SOSA, Josué Primary Care Provider Ralph Gudino Unavailable [phone] Allergies No Known Allergies Reason For Referral [...] Status Risk Notes Problem Ulcer of toe (207590325) Non-pressure chronic ulcer of other part of right foot limited to breakdown of skin (L97.511) Active confirmed Problem Acquired hammer toe of right foot (9775692365319 105) Acquired hammer toe of right foot (M20.41) Active confirmed Plan Of Treatment Pending Test Test Name Order Date X ray : Foot, right 3V 12/04/2022 10324-LPTWZCD NAIL, 1-5 12/24/2022 16550- Debride <25 sq cm 12/24/2022 31249-MLYTWVJO OF HEMATOMA/FLUID 023 Insurance Providers Payer Name Payer Address Payer Phone Subscriber Number Group Number Insured Name Patient Relationship to Insured Coverage Start Date Coverage End Date Medicare National Govt [employer] [address] [place] [address] [id number] Nathan Monique Self - patient is the insured [employer] [address] [place] [address] [id number] Nathan Monique Self - patient is the insured Medical (General) History Medical History History ICD Code Cancer High blood pressure Surgical History Surgery Date(Month/Year) rotator cuff surgery 2014 Bladder Cancer 2016
== END ==
LOC: HO.CARD 13:10
PROVIDERS: PCP Nurse Practitioner Family; Visit Provider Internal Medicine Cardiovascular Disease
DX: I48.92 Unspecified atrial flutter (principal)
CPT/HCPCS: 93270

== ENCOUNTER → 2025-01-29 13:12 | Outpatient (BNV) | payer MEDICARE, SELFPAY | PROVIDERS: PCP Nurse Practitioner Family; Visit Provider Internal Medicine Cardiovascular Disease | DX: I49.1 Atrial premature depolarization (principal); I49.3 Ventricular premature depolarization | CPT/HCPCS: 93272 ==

== ENCOUNTER 2025-07-19 05:53 | Day surgery (SDC) | payer MEDICARE, SELFPAY ==
--- OUTSIDE RECORDS SUMMARY | 2025-05-13 23:59 | XMS_ITS | Continuity of Care Document ---
Author Organization [facility] J Carlos lt Address [address] [place] [address]- Care Team Providers Care Cutter Brake Lining Name Role Phone Jeanette JOURNEYMAN GLAZIER, Charlotte Combs Primary Care Physician Encounter [facility] Date(s): 04/13/25 - 05/13/25 [facility] Adult [address] [place] [address]- Encounter Type: Triage Allergies, Adverse Reactions, Alerts Substance Criticality Severity Reaction Reaction Severity Status benazepril 1 unsure Active 1? angioedema Immunizations Given and Recorded Vaccine Date Status Refusal Reason RSV vaccine preF3, recombinant 10/07/24 Recorded influenza virus vaccine, inactivated 07/09/24 Hang rded [...] virus vaccine, inactivated 08/11/11 Give n SARS-CoV-2(COVID-19)mRNA-LNP vac([id number]) 07/13/23 Recorded pneumococcal 20-valent conjugate vaccine 4 06/06/23 Given [id number] bivalent booster vax 07/10/22 Recorded tetanus/diphtheria/pertussis, acel(Tdap) [...] 10/21/00 Given 1Result Comment: [07/30/2017] HIGH DOSE [facility]: [id number] 2Admin Note: [facility] 3Admin Note: given at [facility] 4Result Comment: [id number] 5Result Comment: [facility]-[id number] Medications Eliquis 5 mg oral tablet 1 tablet = 5 mg, By Mouth, 2 times a day, # 180 tablet, 0 Refills, Maintenance, 04/13/25 11:00:00 AMEDT, Tablet, [facility]/pharmacy #[id number], 183, cm, 04/06/25 8:03:00 EDT, Height, 99.4, kg, 07/14/24 8:55:00 EDT, Dry Weight Start Date: 04/13/25 Status: Ordered Quantity: 180.0 Unit: tablet Repeat number: 1 fenofibrate 160 mg oral tablet 1 tablet, By Mouth, Daily, # 90 tablet, 1 Refills, Maintenance, 03/28/25 4:51:00 PM EDT, [facility], 183, cm, 01/28/25 10:10:00 EDT, Height, 99.4, kg, 07/14/24 8:55:00 EDT, Dry Weight Start Date: 03/28/25 Status: Ordered Quantity: 90.0 Unit: tablet Repeat number: 1 hydrochlorothiazide-spironolactone 25 mg-25 mg oral tablet 1 tablet, By Mouth, Daily, # 90 tablet, 1 Refills, Maintenance, 01/18/25 11:22:00 AM EDT, [facility], 90, TAKE 1 TABLET DAILY, 183, cm, 11/19/24 9:13:00 EST, Height, 99.4, kg, 07/14/24 8:55:00 EDT, Dry Weight Start Date: 01/18/25 Status: Ordered Quantity: 90.0 Unit: tablet Repeat number: 1 Magnesium Gluconate By Mouth, 2 times a day, 0 Refills, Maintenance, 04/06/25 8:07:00 AM EDT, Partial fill upon patient request if the prescription is for a schedule II opioid drug. Start Date: 04/06/25 Status: Ordered Repeat number: 1 Metoprolol Succinate ER 100 mg oral tablet, extended release 100 mg, 1, tablet, By Mouth, Daily, # 90 tablet, Refills 1, Tot. Refills 1, Maintenance, 04/13/25 12:57:00 PM EDT, Route to Pharmacy Electronically, [facility]/pharmacy #[id number], 183, cm, 04/06/25 8:03:00 EDT, Height, 99.4, kg, 07/14/24 8:55:00 EDT, Dry Weight Start Date: 04/13/25 Stop Date: 10/10/25 Status: Ordered Quantity: 90.0 Unit: tablet Repeat number: 2 naltrexone 50 mg oral tablet TAKE 1 TABLET BY MOUTH EVERY DAY Start Date: 01/28/25 Status: Ordered Repeat number: 1 pantoprazole 40 mg oral delayed release tablet 1 tablet, By Mouth, Daily, # 90 tablet, 1 Refills, Maintenance, 09/03/22 3:26:00 PM EST, 178.4, cm,07/30/22 12:57:00 EDT, Height Start Date: 09/03/22 Status: Ordered Quantity: 90.0 Unit: tablet Repeat number: 1 Vitamin B Complex oral tablet, extended release 1 tablet, By Mouth, Daily, # 90 tablet, 0 Refills, Maintenance, 01/28/25 9:43:00 AM EDT Start Date: 01/28/25 Status: Ordered Quantity: 90.0 Unit: tablet Repeat number: 1 Vitamin B1 Daily, 0 Refills, Maintenance, 04/06/25 8:08:00 AM EDT, Partial fill upon patient request if the prescription is for a schedule II opioid drug. Start Date: 04/06/25 Status: Ordered Repeat number: 1 Vitamin B2 By Mouth, Daily, 0 Refills, Maintenance, 11/02/20 9:34:00 AM EST, Partial fill upon patient request if the prescription is for a schedule II opioid drug. Start Date: 11/02/20 Status: Ordered Repeat number: 1 Problem List Condition Confirmation Course Effective Dates Status Health Status Informant Alcoholism Confirmed Active Aortic valve sclerosis 1 Confirmed 12/02/15 Active Atrial flutter Confirmed Active Herrera's esophagus egd 2018 2 Confirmed Active Benign Essential Hypertension Confirmed Active COPD airtrapiing CT/low dlco fev1 86% Confirmed Active Renal cyst- left lateral Confirmed Active Disorder Of Vitamin B12 low [...] Active IFG (impaired fasting glucose) Confirmed Active Anticoagulant long-term use Confirmed Active LVH (left ventricular hypertrophy) due to hypertensive disease 10 Confirmed Active Abnormal brain MRI volume loss Confirmed 10/26/19 Active Mild cognitive disorder neuriology moca Confirmed 11/26/19 Active Pulmonary nodules Confirmed 12/09/18 Active Overweight Confirmed Active x-ray of lumbar spine/hips.left knee djd Confirmed 12/06/21 Active 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 Fatty liver FIB-4;1.98 11 Confirmed 11/18/17 Active SVC syndrome prior catheter/facial swelling Confirmed Active Presence of urostomy Confirmed Active 1On echocardiogram 2No dysplasia in 2022, repeat EGD in [address] depression lead three ; dats 2003 4counsel; [id number] 5dheas,lh normal 6estradiol upper normal 7normal, test, [...] Team Personnel Name: Charlotte Reid NP Position: S PCO Associate Professional Member Role: PCP Address: [address] [place] [id number] Telecom: Care Team Related Persons Name: CULLEN AGUERO Name: HILDA WALKER Insurance Providers Guarantor name: JLUIS AGUERO Health Plan Information #: 1 Payer: MEDICARE B Payer Identifier: NA Member Number: [id number] Group Number: NA Subscriber Identifier: [id number] Relationship to Subscriber: self Coverage Type: NA Coverage Verification Date: NA Telecom: NA Address: [facility] Information #: 2 Payer: MEDEX SECONDARY ONLY Payer Identifier: NA Member Number: [id number] Group Number: [id number] Subscriber Identifier: [id number] Relationship to Subscriber: self Coverage Type: Medicare Other Coverage Verification Date: NA Telecom: NA Address:
--- OUTSIDE RECORDS SUMMARY | 2025-05-19 08:06 | XMS_ITS | Clinical Summary ---
Author Organization [facility] [address] [place] [address] Address [address] [place] [address] Phone Care Team Providers Care Pilot Highway Patrol Name Role Phone Charlotte Reid NP Primary Care Provider [phone] Social History Tobacco Use Types Packs/Day Years [...] Panel) 11/14/2023 Colorectal Cancer Screening: Colonoscopy 11/14/2023 Falls Risk Assessment 11/14/2023 Hepatitis C Screening 11/14/2023 Medicare Annual Wellness Visit 11/14/2023 Social Influencers of Health Screening 11/14/2023 COVID-19 Vaccine (1 - 2023-2 5 season) 2024 Depression Screening 10/21/2024 Influenza Vaccine (#1) 2025 RSV Immunization Adult Patie nts (1 - [...] on patient's age to complete this topic Insurance MEDICARE [facility] Care Teams [employer] Relationship Specialty Start Date End Date Charlotte Reid NP [address] [facility] [address] PCP - General Nurse Practitioner 11/23/24
--- OUTSIDE RECORDS SUMMARY | 2025-05-19 08:06 | XMS_ITS | Patient Health Record ---
Author Organization [facility] Address [address] [place] [address] Care Team Providers Care Glued Wood Tester Name Role Phone Aminata SOSA, Josué Primary Care Provider Ralph Gudino Unavailable [phone] Allergies No Known Allergies Reason For Referral No Information Medications Medication SIG (Take, Route, Fr equency, Duration) Notes Start Date End Date Status Marlene Active Fenofibrate 160 MG 1 tablet Orally Once a day; Duration: 30 day(s) Active Keflex 500 500 MG 1 capsule Orally daquan ry 12 hrs; Duration: 10 day(s) Active Protonix 40 MG 1 tablet Orally Once a day; Duration: 30 day(s) Active Spironolactone 25 MG 1 tablet Orally; Du ration: 30 day(s) Active Social History Tobacco Use: [...] Problem Status W/U Status Risk Notes Problem Non-pressure chronic ulcer of other part of right foot limited to breakdown of skin (L97.511) Active confirmed Problem Acquired hammer toe of right foot (9101035180227 105) Acquired hammer toe of right foot (M20.41) Active confirmed Plan Of Treatment Pending Test Test Name Order Date X ray : Foot, right 3V 12/04/2022 [id number] NAIL, 1-5 12/24/2022 [id number]- Debride <25 sq cm 12/24/2022 [id number] OF HEMATOMA/FLUID 023 Insurance Providers Payer Name Payer Address Payer Phone Subscriber Number Group Number Insured Name Patient Relationship to Insured Coverage Start Date Coverage End Date Medicare National Govt Sv[employer] [address] [place] [address] [id number] Nathan Monique Self - patient is the insured [employer] [address] [place] [address] [phone] [id number] Nathan Monique Self - patient is the insured Medical (General) History Medical History History ICD Code Cancer High blood pressure Surgical History Surgery Date(Month/Year) rotator cuff surgery 2014 Bladder Cancer 2016
[2025-07-13 08:55] VITALS: BMI 30.7
--- NOTE | 2025-07-15 12:49 | HO.ANESPROP2 ---
Documented by User: Elaine Liu NP 07/15/25 13:13 HPI - Anesthesia Eval Consult details Narrative: 74 yr old male for left cataract extraction IOL insertion *Saw [facility] preop clinic for clearance H/O ETOH abuse: on naltrexone COPD: had exacerbation, requiring prednisone 01/2025 GERD: on PPI H/O atrial flutter with rapid ventricular response during [facility] [place] with acute ETOH intoxication: Converted back to sinus rhythm on Cardizem drip, seen by [facility] cardiology while inpt, had echo *see below; now on Eliquis PMFSH Active Problems Active Problems: All Active Problems (Updated 07/13/25 @ 08:55 by Marge North RN) Atrial flutter with rapid ventricular response (Acute) Low back pain (Acute) Left hip pain (Acute) Past Medical History Medical History Pulmonary nodules Skin cancer Fatty liver Hypertriglyceridemia Herrera esophagus COPD (chronic obstructive pulmonary disease) Alcohol use disorder in remission Atrial flutter Tongue cancer Bladder cancer HTN (hypertension) Surgical History Surgical History H/O colonoscopy History of esophagogastroduodenoscopy (EGD) H/O prostatectomy Hx of total cystectomy History of bladder surgery (Unknown) Hx of shoulder surgery (Unknown) Hx of shoulder surgery (Unknown) Social History Social History Household Members: Spouse Housing: House Are you a primary rn critical care to a significant other at home: No Do you presently have visiting nurse or other home services: No Alcohol intake: former Patient Tobacco Use Status: Former Tobacco user Tobacco use type: Cigarette e-Cigarette/Vaping Use: Never Used Second Hand Smoke Exposure: No Use of substances other than those prescribed or required for medical reasons: No Have you been hit, kicked, punched, or otherwise hurt by someone within the past year? If so, by whom?: No Spiritual Healthcare Practices: no Mandaen Healthcare Practices: no Cultural Healthcare Practices: no Are you DNR?: No Advance Directives: Yes Advance Directives Information Provided: Yes Advance Directives on File: Yes Advance Directives Date on File: 01/19/25 Poor oral hygiene: No service: No Current occupational status: retired 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 Meds Allergies Allergy/AdvReac Type Severity Reaction Status Date / Time benazepril AdvReac Unknown reaction Verified 07/13/25 08:49 unknown per patient Home Medications ?Medication ?Instructions ?Recorded ?Confirmed ?Last Taken ?Type fenofibrate 160 mg tablet 160 mg PO DAILY 12/25/23 07/13/25 01/18/25 History cyanocobalamin (vitamin B-12) 1,000 mcg PO DAILY 01/10/25 07/13/25 01/18/25 History 1,000 mcg tablet pantoprazole 40 mg tablet,delayed 40 mg PO Q2D@0630 01/10/25 07/13/25 01/18/25 History release (Protonix) riboflavin (vitamin B2) 400 mg 400 mg PO DAILY 01/10/25 07/13/25 01/18/25 History tablet spironolactone 25 1 tab PO DAILY 01/10/25 07/13/25 01/18/25 History mg-hydrochlorothiazide 25 mg tablet thiamine HCl (vitamin B1) 100 mg 100 mg PO DAILY 01/10/25 07/13/25 01/18/25 History tablet spironolactone 25 1 tab PO DAILY 07/13/25 07/13/25 Unknown History mg-hydrochlorothiazide 25 mg tablet trazodone 50 mg tablet 50 mg PO BEDTIME PRN Insomnia 07/13/25 07/13/25 Unknown History Exam Height,Weight and Vital Signs: Height 5 ft 11 in Weight 99.79 kg Narrative Narrative: ECHO 12/2024 Conclusions: - 1. Technically limited study despite the use of contrast agent 2. Low normal LV ejection fraction 50-55% 3. Mild aortic stenosis and regurgitation noted 4. At least mildly dilated ascending aorta at 3.9 cm The mean gradient is 8 mmHg. The aortic valve area is 2.07 cm2 Documented by User: Sarah Cruz MD 07/19/25 08:24 [facility] Past Medical History Medical History Pulmonary nodules Skin cancer Fatty liver Hypertriglyceridemia Herrera esophagus COPD (chronic obstructive pulmonary disease) Alcohol use disorder in remission Atrial flutter Tongue cancer Bladder cancer HTN (hypertension) Family History Family history of problems with anesthesia: No Surgical History Surgical History H/O colonoscopy History of esophagogastroduodenoscopy (EGD) H/O prostatectomy Hx of total cystectomy History of bladder surgery (Unknown) Hx of shoulder surgery (Unknown) Hx of shoulder surgery (Unknown) History of Problems with Anesthesia: No Social History Social History Household Members: Spouse Housing: House Are you a primary rn critical care to a significant other at home: No Do you presently have visiting nurse or other home services: No Alcohol intake: former Patient Tobacco Use Status: Former Tobacco user Tobacco use type: Cigarette e-Cigarette/Vaping Use: Never Used Second Hand Smoke Exposure: No Use of substances other than those prescribed or required for medical reasons: No Have you been hit, kicked, punched, or otherwise hurt by someone within the past year? If so, by whom?: No Spiritual Healthcare Practices: no Mandaen Healthcare Practices: no Cultural Healthcare Practices: no Are you DNR?: No Advance Directives: Yes Advance Directives Information Provided: Yes Advance Directives on File: Yes Advance Directives Date on File: 01/19/25 Poor oral hygiene: No service: No Current occupational status: retired 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 Meds Allergies Allergy/AdvReac Type Severity Reaction Status Date / Time benazepril AdvReac Unknown reaction Verified 07/13/25 08:49 unknown per patient Home Medications ?Medication ?Instructions ?Recorded ?Confirmed ?Last Taken ?Type fenofibrate 160 mg tablet 160 mg PO DAILY 12/25/23 07/13/25 01/18/25 History cyanocobalamin (vitamin B-12) 1,000 mcg PO DAILY 01/10/25 07/13/25 01/18/25 History 1,000 mcg tablet pantoprazole 40 mg tablet,delayed 40 mg PO Q2D@0630 03/23/25 09/23/25 03/31/25 History release (Protonix) riboflavin (vitamin B2) 400 mg 400 mg PO DAILY 01/10/25 07/13/25 01/18/25 History tablet spironolactone 25 1 tab PO DAILY 01/10/25 07/13/25 01/18/25 History mg-hydrochlorothiazide 25 mg tablet thiamine HCl (vitamin B1) 100 mg 100 mg PO DAILY 01/10/25 07/13/25 01/18/25 History tablet spironolactone 25 1 tab PO DAILY 07/13/25 07/13/25 Unknown History mg-hydrochlorothiazide 25 mg tablet trazodone 50 mg tablet 50 mg PO BEDTIME PRN Insomnia 07/13/25 07/13/25 Unknown History Exam Airway Mallampati Class: II TM Dist: >3cm Neck ROM: Limited Heart: rrr Lungs: cta Assessment and Plan Assessment Anesthesia Assessment: Anesthesia Plan Discussed and Chart Reviewed Final Anesthetic Review Family History of Problems with Anesthesia: No History of Problems with Anesthesia: No NPO: Yes ASA Class: III Final Preanesthetic Review: No Changes in Pt Med Stat, Meds/Allgs Chart Reviewed, Consent Obtained/Reviewed and Anes Risks/Benef Reviewed Patient Risk: Intermediate Procedure Risk: Low Anesthetic Plan Anesthetic Plan: MAC: and Agree w/ Assess. and Plan Disposition: Standard PACU
[2025-07-19 06:38] VITALS: BP 131/62; PULSE 70; RESP 14; TEMP 36.8; O2SAT 95
[2025-07-19] MEDS: Tetracaine HCl/PF 0.5% Oph Sol 4 ML DROPS 1 DROP EYE-LEFT (06:40)
[2025-07-19] MEDS: Tropicamide 1 % Ophth Sol 3 ML BTL 1 DROP EYE-LEFT ×3 (06:42→06:50)
[2025-07-19] MEDS: Lactated Ringers 500 ML 50 ML IV (06:42)
[2025-07-19] MEDS: Phenylephrine HCL 2.5% Oph SoL 2 ML BOTTLE 1 DROP EYE-LEFT ×3 (06:43→06:51)
[2025-07-19] MEDS: Cyclopentolate 1 % Ophth Sol 2 ML DRPBTL 1 DROP EYE-LEFT ×3 (06:44→06:50)
[2025-07-19] MEDS: Ketorolac Tromethamine 0.5% Op 5 ML DROPS 1 DROP EYE-LEFT ×3 (06:45→06:52)
--- NOTE | 2025-07-19 07:23 | MHC.SHP ---
Pre-Procedural Eval Section A - 24 Hr Update-Section A only Date of Service: 07/19/25 The patient is an INPATIENT: No Changes since office visit: No Cold of Flu in the past 2 weeks, No New Medical Problems, No Changes in Medication and No Patient answered all questions The patient has been examined within 24 hours of the surgical procedure. The History & Physical has been completed within 30 days and I have reviewed it.: Yes Section B - Complete if H&P > 30 days Chief Complaint: Age-related nuclear cataract, left eye Allergies: Allergies Allergy/AdvReac Type Severity Reaction Status Date / Time benazepril AdvReac Unknown reaction Verified 07/13/25 08:49 unknown per patient Plan Diagnosis/Plan: Unchanged I have reviewed the history and physical and performed a pertinent physical examination on my patient. No changes have occurred unless specified. Time Spent With Patient Time: Total time managing care of this patient today ____ minutes.
--- NOTE | 2025-07-19 07:24 | HO.PNOPHT ---
Ophthalmology Procedure Procedure Date of Service: 07/19/25 Ophthalmology Viscoelastic: Healon Duet Dual Pack Pro Ophthalmology Lenses: IOL Acrysof MP - [id number] (21) Procedure Notes: PREOPERATIVE DIAGNOSIS: Decreased visual acuity left eye secondary to cataract POSTOPERATIVE DIAGNOSIS: Same PROCEDURE: Left cataract extraction with intraocular lens insertion SURGEON: Adam Gates M.D. ANESTHESIA: Topical/MAC ESTIMATED BLOOD LOSS: None COMPLICATIONS: None After obtaining informed consent, the patient was brought to the operation room suite and placed in the supine position. After adequate sedation per anesthesia, topical drops of Tetracaine were given to the left eye. The eye was then prepped and draped in the usual sterile fashion. The operating room microscope was then positioned over the operative eye and a lid speculum placed. A paracentesis was created. Viscoelastic was then instilled into the anterior chamber. A three plane incision was then created temporally, utilizing a 2.85 mm keratome. Capsulotomy forceps were then utilized to create a circular tear capsulotomy. Hydrodissection and hydrodelineation were carried out until adequate mobilization of the nucleus occurred. Phacoemulsification was then utilized to remove the dense central nucleus followed by removal of the cortical material utilizing the automated aspiration irrigation unit. Viscoat elastic was instilled into the posterior capsular bag followed by placement of a posterior chamber intraocular lens without difficulty. The residual Viscoat elastic was then removed utilizing the automated IA machine. The wound was check and found to be watertight. The patient tolerated the procedure well and the lid speculum was removed. Intracameral injection of Vigamox 0.1 mL followed by a subtenon injection of Kenalog-40 0.2 mL were administered. The patient will be seen in the a.m.
[2025-07-19 08:04] VITALS: BP 138/46; PULSE 68; RESP 16; TEMP 36.4; O2SAT 95
== END 2025-07-19 08:08 | disposition home or self-care (01) ==
PROVIDERS: PCP Nurse Practitioner Family; Visit Provider Ophthalmology
PROC: (CPT 66985; principal; 2025-07-19 07:30)
DX: H25.12 Age-related nuclear cataract, left eye (principal); H54.7 Unspecified visual loss; H40.1130 Primary open-angle glaucoma, bilateral, stage unspecified; H18.413 Arcus senilis, bilateral; I10 Essential (primary) hypertension; I48.91 Unspecified atrial fibrillation; Z85.51 Personal history of malignant neoplasm of bladder; Z90.6 Acquired absence of other parts of urinary tract; Z87.891 Personal history of nicotine dependence; Z79.01 Long term (current) use of anticoagulants; Z79.899 Other long term (current) drug therapy
CPT/HCPCS: 66984; J2250; J3010; J3301; V2630